=== PATIENT | female | born 1980 | race Caucasian/White ===

== ENCOUNTER → 2016-12-18 | Outpatient (CLI) | payer OTHER ==
--- NOTE | 2016-12-18 11:43 | MR ---
EXAMINATION TYPE: MR lumbar spine wo con DATE OF EXAM: 12/18/2016 9:23 AM COMPARISON: 01/03/2015 HISTORY: Back pain TECHNIQUE: T1 and T2 axial and sagittal images of the lumbar spine are submitted. FINDINGS: There is no abnormal signal seen within the visualized spinal cord or paraspinal soft tissu es. At L1-2 there is no evidence of degenerative disc disease, disc herniation, canal stenosis, or forami nal encroachment. At L2-3 there is no evidence of degenerative disc disease, disc herniation, canal stenosis, or forami nal encroachment. At L3-4 there is no evidence of degenerative disc disease, disc herniation, canal stenosis, or forami nal encroachment. At L4-5 there is loss of disc signal an discogenic marrow changes which are stable. Broad-based centr al, right paracentral and lateral disc bulging is stable with mild right neural foraminal encroachmen t. No nerve root contact. No canal stenosis. Mild facet arthropathy noted. At L5-S1 there is loss of disc signal no evidence of disc herniation or canal stenosis. Stable mild l eft foraminal encroachment. Lateral mild disc bulging stable. IMPRESSION: 1. Stable disc bulging L4-L5 with no focal herniation or canal stenosis. Stable mild right-sided fora anika encroachment. 2. Stable degenerative disc disease and mild left lateral disc bulging L5-S1. Mild left foraminal enc roachment with no nerve root contact.
== END | disposition home or self-care (01) ==
LOC: RADMRIMAIN 08:36
PROVIDERS: ATTEND Family Medicine
DX: M51.17 Intervertebral disc disorders with radiculopathy, lumbosacral region (principal)
CPT/HCPCS: 72148

== ENCOUNTER 2017-01-07 08:00 | Emergency (ER) | payer OTHER ==
[2017-01-07 08:03] VITALS: BP 140/71; PULSE 104; RESP 20; TEMP 99
[2017-01-07] MEDS ORDERED: KETOROLAC 60 MG/2 ML VIAL IM STA (08:34)
--- NOTE | 2017-01-07 08:41 | ED ---
General Adult HPI - General Chief complaint: Neck Pain/Injury Stated complaint: neck and back pain Time Seen by Provider: 01/07/17 08:20 Source: patient, RN notes reviewed Mode of arrival: ambulatory Limitations: no limitations - History of Present Illness Initial comments: Patient a 36-year-old female who presents emergency room today with a chief complaint of increased left-sided neck pain over the last 2 weeks. She does admit that it started after sleeping one night. She states she's been trying some [id number]-[id number] medication with little relief. She states she's tried some topical cream as well. She states she's tried a hot and cold to the area. States worse with rotation to the left. Patient denies any other complaints or symptoms. Denies any specific injury or trauma. Patient denies any recent fever, chills, shortness of breath, chest pain, back pain, abdominal pain, nausea or vomiting, numbness or tingling, dysuria or hematuria, constipation or diarrhea, headaches or visual changes, or any other complaints. - Related Data Home Medications Medication Instructions Recorded Confirmed Omeprazole [PriLOSEC] 40 mg PO AC-BRKFST 07/01/14 01/07/17 Desvenlafaxine Succinate [Pristiq 100 mg PO DAILY 02/03/15 01/07/17 ER] Folic Acid 1 mg PO BID 02/03/15 01/07/17 levETIRAcetam [Keppra] 1,000 mg PO BID 02/28/15 01/07/17 Albuterol Nebulized [Ventolin 2.5 mg INHALATION RT-Q6H PRN 08/08/16 01/07/17 Nebulized] Theophylline Anhydrous 400 mg PO DAILY 08/08/16 01/07/17 [Theophylline] Ibuprofen [Motrin] 400 mg PO Q6H PRN 01/07/17 01/07/17 lamoTRIgine [LaMICtal Xr] 250 mg PO BID 01/07/17 01/07/17 Previous Rx's Medication Instructions Recorded Cyclobenzaprine [Flexeril] 10 mg PO TID #20 tab 01/07/17 Ibuprofen [Motrin] 800 mg PO Q6HR PRN #30 tab 01/07/17 Allergies Allergy/AdvReac Type Severity Reaction Status Date / Time egg Allergy Unknown Verified 01/07/17 08:23 peanut Allergy Anaphylaxis Verified 01/07/17 08:23 influenza virus vaccine, AdvReac Unknown Verified 01/07/17 08:23 specific [Influenza Virus Vacc,Specific] Review of Systems ROS Statement: Those systems with pertinent positive or pertinent negative responses have been documented in the HPI. ROS Other: All systems not noted in ROS Statement are negative. Past Medical History Past Medical History: Asthma, Diabetes Mellitus, GERD/Reflux, Musculoskeletal Disorder Additional Past Medical History / Comment(s): SEIZURES WITH FEVER A CHILD, BACK PAIN, History of Any Multi-Drug Resistant Organisms: None Reported Past Surgical History: Cholecystectomy, Hernia Repair Additional Past Surgical History / Comment(s): Caitlyn [facility] ABDOMINAL HERNIAS REPAIRED Saturday07/02/[address] SHARMA. pT STATES UPPER ABDOMINAL INCISION BRIONES "ALOT" WHEN SHE COUGHS. Past Anesthesia/Blood Transfusion Reactions: No Reported Reaction, Motion Sickness Past Psychological History: Anxiety, Depression Smoking Status: Former smoker Past Alcohol Use History: None Reported Additional Past Alcohol Use History / Comment(s): PT SMOKED FOR 1 YR ONLY AND QUIT 3 YRS AGO Past Drug Use History: None Reported - Past Family History Father Family Medical History: Cancer Additional Family Medical History / Comment(s): THROAT CA Mother Family Medical History: Asthma, COPD Additional Family Medical History / Comment(s): MOTHER IS STILL LIVING. General Exam - General Exam Comments Initial Comments: General: The patient is awake and alert, in no distress, and does not appear acutely ill. Eye: Pupils are equal, round and reactive to light, extra-ocular movements are intact. No nystagmus. There is normal conjunctiva bilaterally. No signs of icterus. Ears, nose, mouth and throat: There are moist mucous membranes and no oral lesions. Neck: The neck is supple. Cardiovascular: There is a regular rate and rhythm. No murmur, rub or gallop is appreciated. Respiratory: Lungs are clear to auscultation, respirations are non-labored, breath sounds are equal. No wheezes, stridor, rales, or rhonchi. Musculoskeletal: Patient shows limited range of motion of the cervical spine. Pain increased with rotation to the left. Tender to palpation over the left sided sternocleidomastoid. Strength 5/5. Sensation intact. Pulses equal bilaterally 2+. Neurological: A&O x 3. CN II-XII intact, There are no obvious motor or sensory deficits. Coordination appears grossly intact. Speech is normal. Skin: Skin is warm and dry and no rashes or lesions are noted. Psychiatric: Cooperative, appropriate mood & affect, normal judgment. Limitations: no limitations Course Vital Signs 01/07/17 08:01 Temperature 99.0 F Pulse Rate 104 H Respiratory 20 Rate Blood Pressure 140/71 O2 Sat by Pulse 98 Oximetry Medical Decision Making - Medical Decision Making Patient did drive herself here to the hospital. Has no ride home. Patient be given Toradol shot here in emergency room discharged home continue on anti- inflammatories and muscle relaxants. Advised the muscle relaxant may make you drowsy. Rest felt family doctor or return here to the emergency room for any other concerns. Disposition Clinical Impression: Torticollis, acute Disposition: HOME SELF-CARE Condition: Good Instructions: Spasmodic Torticollis (ED) Additional Instructions: Please use medication as discussed. Please be aware that muscle relaxant may make you drowsy. Please follow-up with family doctor in the next 2 days of symptoms have not improved. Please return to emergency room if the symptoms increase or worsen or for any other concerns. Prescriptions: Cyclobenzaprine [Flexeril] 10 mg PO TID #20 tab Ibuprofen [Motrin] 800 mg PO Q6HR PRN #30 tab PRN Reason: Pain Time of Disposition: 08:41
== END 2017-01-07 09:17 | disposition home or self-care (01) ==
LOC: EC 08:00
DX: M43.6 Torticollis (principal); K21.9 Gastro-esophageal reflux disease without esophagitis; F41.9 Anxiety disorder, unspecified; F32.9 Major depressive disorder, single episode, unspecified; J45.909 Unspecified asthma, uncomplicated; Z87.891 Personal history of nicotine dependence; Z79.899 Other long term (current) drug therapy; Z91.012 Allergy to eggs; Z91.010 Allergy to peanuts; Z88.7 Allergy status to serum and vaccine
CPT/HCPCS: 99283 ×2; 96372 ×2; J1885

== ENCOUNTER → 2017-02-19 | Outpatient (CLI) | payer OTHER ==
[2017-02-15 15:01] VITALS: BMI 46.7
[2017-02-19 13:57] VITALS: BP 138/91; PULSE 117; RESP 18; TEMP 98
--- NOTE | 2017-02-19 14:08 | P.HPIM ---
History of Present Illness H&P Date: 02/19/17 Chief Complaint: low back pain and right leg numbness/tingling This is a 36-year-old patient referred by Dr. Andrea for chronic pain in low back with radiation to both legs, R > L. Patient is obese. She has been taking medications from primary care physician including [facility] medications with some relief. Patient denies adverse drug effects from medications. Patient also denies new-onset weakness, bowel/bladder incontinence, or any other signs or symptoms of cauda equina syndrome. There are no signs of acute intoxication, and no indications of medication diversion or overuse. Patient notes that pain worsens significantly with standing and walking, and improves with rest, ice, and medication. Patient has used several types of medications for pain, including NSAIDS, OPIOIDS, TRAMADOL. Patient HAS NOT had surgery. Patient HAS NOT had injections previously. Patient HAS NOT had physical therapy recently. In addition to above, 13-point review of systems is also negative for chest pain , shortness of breath, changes in vision, changes in hearing, new onset weakness , abdominal pain, diarrhea, extreme fatigue, malaise, fever, skin changes, homicidal or suicidal ideation, or bowel or bladder incontinence. Vital Signs: Reviewed in EMR Gen: WDWN, AAOx3, NAD HEENT: NCAT, EOMI, hearing grossly normal Pulm: resp unlabored Abd: soft, NT, ND Neck: supple, trachea midline ROM in flexion lumbar spine: reduced ROM in extension lumbar spine: reduced Lumbar paravertebral tenderness: + bilateral, L > R Facet loading: + L > R SI joint tenderness: + Trung's test: neg Straight leg raise: + RLE at 20 degrees Neuro: CN II-XII grossly intact, muscle strength lower extremities PRESERVED Past Medical History Past Medical History: Asthma, Diabetes Mellitus, GERD/Reflux, Musculoskeletal Disorder Additional Past Medical History / Comment(s): SEIZURES WITH FEVER A CHILD, BACK PAIN L4-L5, History of Any Multi-Drug Resistant Organisms: None Reported Past Surgical History: Cholecystectomy, Hernia Repair Additional Past Surgical History / Comment(s): 3 ABDOMINAL HERNIAS REPAIRED pT STATES UPPER ABDOMINAL INCISION BRIONES "ALOT" WHEN SHE COUGHS. Past Anesthesia/Blood Transfusion Reactions: No Reported Reaction, Motion Sickness Past Psychological History: Anxiety, Depression Smoking Status: Former smoker Past Alcohol Use History: None Reported Additional Past Alcohol Use History / Comment(s): PT SMOKED FOR 1 YR ONLY AND QUIT 3 YRS AGO Past Drug Use History: None Reported - Past Family History Father Family Medical History: Cancer Additional Family Medical History / Comment(s): THROAT CA Mother Family Medical History: Asthma, COPD Additional Family Medical History / Comment(s): MOTHER IS STILL LIVING. Medications and Allergies Home Medications Medication Instructions Recorded Confirmed Type Omeprazole [PriLOSEC] 40 mg PO AC-BRKFST 07/01/14 02/19/17 History Desvenlafaxine Succinate [Pristiq 100 mg PO DAILY 02/03/15 02/15/17 History ER] Folic Acid 1 mg PO BID 02/03/15 02/19/17 History levETIRAcetam [Keppra] 1,000 mg PO BID 02/28/15 02/19/17 History Albuterol Nebulized [Ventolin 2.5 mg INHALATION RT-Q6H PRN 08/08/16 02/19/17 History Nebulized] Theophylline Anhydrous 400 mg PO DAILY 08/08/16 02/19/17 History [Theophylline] lamoTRIgine [LaMICtal Xr] 250 mg PO BID 01/07/17 02/19/17 History metFORMIN HCL 1,000 mg PO DAILY 02/15/17 02/19/17 History Allergies Allergy/AdvReac Type Severity Reaction Status Date / Time egg Allergy Unknown Verified 02/19/17 13:44 peanut Allergy Anaphylaxis Verified 02/19/17 13:44 influenza virus vaccine, AdvReac Unknown Verified 02/19/17 13:44 specific [Influenza Virus Vacc,Specific] Results Comments: MRI of the lumbar spine dated 12/18/2016 demonstrates, at the L4-L5 level, a loss of disc signal and a broad-based central, right paracentral, and lateral disc bulging that is stable. There is right neural foraminal encroachment without nerve root contact or spinal canal stenosis. There is mild facet arthropathy noted at this level. At the L5-S1 level, there is loss of disc signal with no evidence of disc herniation or central canal stenosis. There is stable mild left foraminal encroachment with lateral mild disc bulging that is stable. Assessment and Plan (1) Lumbar disc herniation Status: Chronic (2) Lumbosacral spondylosis without myelopathy Status: Chronic (3) Morbid obesity Status: Chronic Plan: 1. Explanation: Opioid and psychological risk scores were reviewed. Diagnoses , prognoses, and multiple treatment options including but not limited to physical therapy, interventional therapies, adjuvant medical therapies, narcotic medication therapies, and surgery were discussed with the patient and all questions were answered to the patient's satisfaction. 2. Opioid agreement: no opioids prescribed today 3. Counseling: The patient was counseled extensively on BODY MASS INDEX, EXERCISE. Specifically, the patient was instructed regarding the importance of weight control and exercise in the context of both chronic pain and overall health. 4. Procedures: LESI series (focus on L4-L5) 5. Consultations: none 6. Investigations: none 7. Medications: none 8. Disposition: f/u for procedure as scheduled PQRS measures: 1-Patient's medications are documented in the chart. 2-Tobacco use is negative 3-Patient has not had a pneumococcal vaccine. 4-Advanced care planning discussed, patient unable to give. 5-Opioid contract NOT signed with the patient. 6-Pain positive, follow-up visit or procedure scheduled 7-Patient's blood pressure measured and documented, and patient will follow up with the primary care due to hypertension. 8-Patient's weight was measured, and body mass index ABOVE the normal limits, and counseling was done. Patient instructed to follow up with PCP. 9-Patient WAS NOT identified as an unhealthy alcohol user. Time with Patient: Greater than 30
== END | disposition home or self-care (01) ==
LOC: PNWHC3 13:31
PROVIDERS: ATTEND Anesthesiology
DX: M51.26 Other intervertebral disc displacement, lumbar region (principal); M47.817 Spondylosis without myelopathy or radiculopathy, lumbosacral region; E66.01 Morbid (severe) obesity due to excess calories; K21.9 Gastro-esophageal reflux disease without esophagitis; J45.909 Unspecified asthma, uncomplicated; E11.9 Type 2 diabetes mellitus without complications; Z91.012 Allergy to eggs; Z91.018 Allergy to other foods; Z87.891 Personal history of nicotine dependence; Z79.891 Long term (current) use of opiate analgesic; Z79.1 Long term (current) use of non-steroidal anti-inflammatories (NSAID)
CPT/HCPCS: 99211

== ENCOUNTER 2017-03-01 06:00 | Day surgery (SDC) | payer OTHER ==
[2017-02-27 14:25] VITALS: BMI 46.7
[~2017-03-01 06:00] MED LIST: LACTATED RINGERS 1,000 ML IV SCH
[2017-03-01 07:27] VITALS: TEMP 96.8
[2017-03-01] MEDS ORDERED: LIDOCAINE 1% 20 ML VIAL (10MG/ML) FOR IV START INTRADERMA ONE (07:35)
[2017-03-01] MEDS ORDERED: fentaNYL (PF) 50 MCG/ML 2 ML AMP ONE (07:38)
[2017-03-01] MEDS ORDERED: DEXAMETHASONE SOD PHOS (MDV) 100 MG/10 ML VIAL ONE (07:38)
[2017-03-01] MEDS ORDERED: IOHEXOL 180 MG/ML 1 ML ML ONE (07:38)
[2017-03-01] MEDS ORDERED: MIDAZOLAM 2 MG/2 ML VIAL ONE (07:38)
--- NOTE | 2017-03-01 08:03 | P.PCN ---
Date of Procedure: 03/01/17 Procedure(s) Performed: PREOPERATIVE DIAGNOSIS: 1- Lumbar herniated Disc Diseases 2-Lumbar spondylosis with Facet arthropathy without myelopathy POSTOPERATIVE DIAGNOSIS: 1-Lumber herniated Disc Diseases 2-Lumbar spondylosis with Facet arthropathy without myelopathy PROCEDURE 1. Lumbar epidural steroid injection under fluoroscopic guidance at the L5-S1 level. (attempted L4-5 not succesfull then I did L5-S1 level ) 2. Lumbar epidurogram. ANESTHESIA: Local with 1% lidocaine 3 ml and IV sedation with Versed 2 mg , and fentanyle 100 Mcg EBL: Minimal PROCEDURE INDICATION: The patient with low back pain and radiculitis symptoms unresponsive to conservative treatment. Fluoroscopy was used to optimize visualization of the needle placement and to maximize safety. PROCEDURE DESCRIPTION / TECHNIQUE: The patient was seen and identified in the preoperative area. Risks, benefits , complications including but not limited to infections ,bleeding ,allergic reaction to the medications ,nerve damage and not complete pain releife , and alternatives were discussed with the patient. The patient agreed to proceed with the procedure and signed the consent. IV was started, and vital signs were stable. Patient was taken to the OR and time out was completed. The patient was placed in the prone position on procedure table and a pillow was placed under the abdomen to reduce lumbar lordosis. The lumbosacral area was prepped and draped in the usual sterile fashion.ere closely monitored during the procedure. Conscious sedation was used during the procedure to decrease patients anxiety. Vital signs was monitered during the entire procedure. Using anterior-posterior fluoroscopy, the L4-5 interlaminar space was identified and the skin over this site was marked and then infiltrated with 1% lidocaine subcutaneously. Subsequently, a 18-gauge 6 inches Tuohy epidural needle was inserted and advanced toward the epidural space then I couldn't identify the epidural space at the L4 5 level , then I changed to L5-S1 level the needle advanced slowely using the ``Loss of resistance technique and guided by AP and lateral fluoroscopy. The correct needle position in the epidural space was verified with the injection of 2 mL of the water soluble contrast dye Omnipaque 180 contrast and observing an excellent epidurogram with the epidural spread of the dye, after negative aspiration for blood and CSF and in the absence of paresthesias. Again after negative aspiration, a 6 ml mixture containing Dexamethasone 20 mg, and 2 ml of preservative free Normal Saline, and 2 ml of preservative free lidocaine 1% solution was injected and a washout of epidurogram was seen. Needle was withdrawn intact, skin was cleansed, and bandages were applied. COMPLICATIONS: None DISPOSITION / PLANS: The patient was placed in a supine position and transferred to the recovery area in a stable condition for observation. There was no evidence of lower extremity motor or sensory deficit after the procedure. Patient was discharged from the recovery room after meeting discharge criteria. Home discharge instructions were given to the patient by the staff. The patient was reexamined prior to discharge. The patient will schedule a follow up in the clinic in 2-4 weeks.
[2017-03-01] MEDS ORDERED: IV FLUID CONTINUATION 1,000 ML IV ONE (08:05)
[2017-03-01 08:06] VITALS: BP 126/65; RESP 18
--- NOTE | 2017-03-01 08:15 | FL ---
EXAMINATION TYPE: FL guided pain mgmt statistic DATE OF EXAM: 03/01/2017 8:00 AM HISTORY: Pain 9sec fluoro time, 1 image scanned.
[2017-03-01 08:19] LABS: Glucose,Whole Blood 172 mg/dL (75-99)
[2017-03-01 08:22] VITALS: PULSE 92
== END 2017-03-01 08:42 | disposition home or self-care (01) ==
LOC: ORPAIN 06:00
PROVIDERS: ATTEND Specialist
DX: M51.26 Other intervertebral disc displacement, lumbar region (principal); M47.816 Spondylosis without myelopathy or radiculopathy, lumbar region; M46.96 Unspecified inflammatory spondylopathy, lumbar region; Z88.7 Allergy status to serum and vaccine; Z91.012 Allergy to eggs; Z91.010 Allergy to peanuts
CPT/HCPCS: 81025; 62323; J2250; Q9965; J3010; J1100

== ENCOUNTER 2017-09-07 10:39 | Emergency (ER) | payer OTHER ==
[2017-09-07 10:56] VITALS: BP 145/78; PULSE 94; RESP 18; TEMP 99.4
[2017-09-07] MEDS ORDERED: CYCLOBENZAPRINE 10 MG TAB PO STA (11:17)
[2017-09-07] MEDS ORDERED: Acetaminophen-Codeine 300-30mg TAB PO STA (11:17)
--- NOTE | 2017-09-07 11:23 | ED ---
Back Pain HPI - General Chief Complaint: Back Pain/Injury Stated Complaint: Back Pain Time Seen by Provider: 09/07/17 10:56 Source: patient, RN notes reviewed Mode of arrival: ambulatory Limitations: no limitations - History of Present Illness Initial Comments: This a 37-year-old female presents emergency Department chief complaint of low back pain, mild upper back pain. Patient states that she receives her workout has been done a lot of AB exercises and states that she strained her back. States that she's had a poor back states that she has had injections in the past. She is on no current pain medications other than [id number] Tylenol Motrin. Denies any bowel bladder incontinence or retention. Denies any saddle anesthesias. Patient states that she has pain was increased with range of motion better at rest. She's tried some heat and ice with some relief. - Related Data Home Medications Medication Instructions Recorded Confirmed Omeprazole [PriLOSEC] 40 mg PO AC-BRKFST 07/01/14 03/28/17 Desvenlafaxine Succinate [Pristiq 100 mg PO DAILY 02/03/15 03/28/17 ER] Folic Acid 1 mg PO BID 02/03/15 03/28/17 levETIRAcetam [Keppra] 1,000 mg PO BID 02/28/15 03/28/17 Albuterol Nebulized [Ventolin 2.5 mg INHALATION RT-Q6H PRN 08/08/16 03/28/17 Nebulized] Theophylline Anhydrous 400 mg PO DAILY 08/08/16 03/28/17 [Theophylline] lamoTRIgine [LaMICtal Xr] 300 mg PO BID 01/07/17 03/28/17 metFORMIN HCL 1,000 mg PO BID 02/15/17 03/28/17 Albuterol Inhaler [Ventolin Hfa 2 puff INHALATION Q4-6H PRN 03/01/17 03/28/17 Inhaler] Previous Rx's Medication Instructions Recorded Acetaminophen-Codeine 300-30mg 1 tab PO Q4H PRN #20 tablet 09/07/17 [Tylenol #3] Cyclobenzaprine [Flexeril] 10 mg PO TID PRN #15 tab 09/07/17 Ibuprofen [Motrin] 600 mg PO Q8HR PRN #30 tab 09/07/17 Allergies Allergy/AdvReac Type Severity Reaction Status Date / Time egg Allergy Unknown Verified 09/07/17 10:56 peanut Allergy Anaphylaxis Verified 09/07/17 10:56 influenza virus vaccine, AdvReac Unknown Verified 09/07/17 10:56 specific [Influenza Virus Vacc,Specific] Review of Systems ROS Statement: Those systems with pertinent positive or pertinent negative responses have been documented in the HPI. ROS Other: All systems not noted in ROS Statement are negative. Past Medical History Past Medical History: Asthma, Diabetes Mellitus, GERD/Reflux, Musculoskeletal Disorder Additional Past Medical History / Comment(s): SEIZURES WITH FEVER A CHILD, BACK PAIN L4-L5, History of Any Multi-Drug Resistant Organisms: None Reported Past Surgical History: Cholecystectomy, Hernia Repair Additional Past Surgical History / Comment(s): 3 ABDOMINAL HERNIAS REPAIRED Past Anesthesia/Blood Transfusion Reactions: No Reported Reaction, Motion Sickness Past Psychological History: Depression Smoking Status: Former smoker Past Alcohol Use History: None Reported Past Drug Use History: None Reported - Past Family History Father Family Medical History: Cancer Additional Family Medical History / Comment(s): THROAT CA Mother Family Medical History: Asthma, COPD Additional Family Medical History / Comment(s): MOTHER IS STILL LIVING. General Exam Limitations: no limitations General appearance: alert, in no apparent distress Head exam: Present: atraumatic, normocephalic, normal inspection Neck exam: Present: normal inspection, full ROM. Absent: tenderness, meningismus, lymphadenopathy Respiratory exam: Present: normal lung sounds bilaterally. Absent: respiratory distress, wheezes, rales, rhonchi, stridor Cardiovascular Exam: Present: regular rate, normal rhythm, normal heart sounds. Absent: systolic murmur, diastolic murmur, rubs, gallop, clicks GI/Abdominal exam: Present: soft, normal bowel sounds. Absent: distended, tenderness, guarding, rebound, rigid Extremities exam: Present: normal inspection, full ROM, normal capillary refill. Absent: tenderness, pedal edema, joint swelling, calf tenderness Back exam: Present: normal inspection, full ROM (Mild discomfort), tenderness ( Mild tenderness right lower thoracic, lumbar), muscle spasm, paraspinal tenderness. Absent: vertebral tenderness Neurological exam: Present: alert, oriented X3, CN II-XII intact, reflexes normal. Absent: motor sensory deficit Skin exam: Present: warm, dry, intact, normal color. Absent: rash Course Vital Signs 09/07/17 10:53 Temperature 99.4 F Pulse Rate 94 Respiratory 18 Rate Blood Pressure 145/78 O2 Sat by Pulse 99 Oximetry Medical Decision Making - Medical Decision Making 37-year-old female present emergency from for low back, mid back pain. Patient has reproducible back pain she has history of chronic back pain. Patient's pain is better at rest worse with movement. Patient treated for a strain of her back. She'll be given Flexeril, according advised to continue ibuprofen return parameters were discussed. Disposition Clinical Impression: Acute exacerbation of chronic low back pain Disposition: HOME SELF-CARE Condition: Stable Instructions: Acute Low Back Pain (ED) Additional Instructions: Please return to the Emergency Department if symptoms worsen or any other concerns. Prescriptions: Acetaminophen-Codeine 300-30mg [Tylenol #3] 1 tab PO Q4H PRN #20 tablet PRN Reason: pain Cyclobenzaprine [Flexeril] 10 mg PO TID PRN #15 tab PRN Reason: Muscle Spasm Ibuprofen [Motrin] 600 mg PO Q8HR PRN #30 tab PRN Reason: Pain Referrals: Aissatou Hillman MD [Primary Care Provider] - 1-2 days Time of Disposition: 11:23
== END 2017-09-07 11:42 | disposition home or self-care (01) ==
LOC: EC 10:39
DX: G89.29 Other chronic pain (principal); M62.830 Muscle spasm of back; J45.909 Unspecified asthma, uncomplicated; E11.9 Type 2 diabetes mellitus without complications; K21.9 Gastro-esophageal reflux disease without esophagitis; F32.9 Major depressive disorder, single episode, unspecified; Z87.891 Personal history of nicotine dependence; Z79.84 Long term (current) use of oral hypoglycemic drugs; Z79.899 Other long term (current) drug therapy; Z88.7 Allergy status to serum and vaccine; Z91.010 Allergy to peanuts; Z91.012 Allergy to eggs; Z86.69 Personal history of other diseases of the nervous system and sense organs
CPT/HCPCS: 99283

== ENCOUNTER 2017-09-12 17:12 | Observation (INO) | payer OTHER ==
[2017-09-12] MEDS ORDERED: IPRATROPIUM-ALBUTEROL 3 ML NEB INHALATION STA ×2 (17:24→18:19)
[2017-09-12] MEDS ORDERED: SODIUM CHLORIDE 0.9% 1,000 ML IV ONE (17:24)
[2017-09-12] MEDS ORDERED: KETOROLAC 30 MG/ML 1 ML VIAL IVP STA (17:24)
--- NOTE | 2017-09-12 17:28 | ED ---
SOB HPI - General Chief Complaint: Shortness of Breath Stated Complaint: JACINTO Source: patient Mode of arrival: wheelchair Limitations: no limitations - History of Present Illness Initial Comments: Patient is a 37-year-old female present for evaluation for 2 day history of shortness of breath and cough. Past medical history as below. Patient states that her symptoms started roughly 2 days ago. She has an established history of asthma. She went to [facility] yesterday and prescribed her dual nebs and steroids which she's been compliant with. However, today she states that she acutely worsened. She describes having subjective fevers with sweating. Her shortness of breath worsened. She was doing breathing treatments every 4 hours with no improvement. Multiple sick contacts with her fianc and daughter. Both of which had URI symptoms. No history of DVTs or pulmonary embolisms. No recent long distance travel. She currently denies headaches, chest pain, nausea , vomiting, diarrhea, pain or burning with urination. - Related Data Home Medications Medication Instructions Recorded Confirmed Omeprazole [PriLOSEC] 40 mg PO AC-BRKFST 07/01/14 09/12/17 Folic Acid 1 mg PO BID 02/03/15 09/12/17 levETIRAcetam [Keppra] 1,000 mg PO BID 02/28/15 09/12/17 Albuterol Nebulized [Ventolin 2.5 mg INHALATION RT-Q6H PRN 08/08/16 09/12/17 Nebulized] metFORMIN HCL 1,000 mg PO BID 02/15/17 09/12/17 Albuterol Inhaler [Ventolin Hfa 2 puff INHALATION Q4-6H PRN 03/01/17 09/12/17 Inhaler] Desvenlafaxine Succinate [Pristiq 50 mg PO DAILY 09/12/17 09/12/17 ER] lamoTRIgine [LaMICtal] 75 mg PO BID 09/12/17 09/12/17 lamoTRIgine [LaMICtal] 200 mg PO BID 09/12/17 09/12/17 predniSONE See Taper PO DAILY 09/12/17 09/12/17 Allergies Allergy/AdvReac Type Severity Reaction Status Date / Time egg Allergy Unknown Verified 09/12/17 18:03 peanut Allergy Anaphylaxis Verified 09/12/17 18:03 influenza virus vaccine, AdvReac Unknown Verified 09/12/17 18:03 specific [Influenza Virus Vacc,Specific] Review of Systems ROS Statement: Those systems with pertinent positive or pertinent negative responses have been documented in the HPI. ROS Other: All systems not noted in ROS Statement are negative. Past Medical History Past Medical History: Asthma, Diabetes Mellitus, GERD/Reflux, Musculoskeletal Disorder, Seizure Disorder Additional Past Medical History / Comment(s): SEIZURES WITH FEVER A CHILD, BACK PAIN L4-L5, History of Any Multi-Drug Resistant Organisms: None Reported Past Surgical History: Cholecystectomy, Hernia Repair Additional Past Surgical History / Comment(s): 3 ABDOMINAL HERNIAS REPAIRED Past Anesthesia/Blood Transfusion Reactions: No Reported Reaction, Motion Sickness Past Psychological History: Depression Smoking Status: Former smoker Past Alcohol Use History: None Reported Past Drug Use History: None Reported - Past Family History Father Family Medical History: Cancer Additional Family Medical History / Comment(s): THROAT CA Mother Family Medical History: Asthma, COPD Additional Family Medical History / Comment(s): MOTHER IS STILL LIVING. General Exam Limitations: no limitations General appearance: alert, in no apparent distress, other (Nontoxic appearing) Head exam: Present: atraumatic, normocephalic, normal inspection Eye exam: Present: normal appearance, PERRL, EOMI. Absent: scleral icterus, conjunctival injection, periorbital swelling ENT exam: Present: normal exam, mucous membranes moist, other (Moist mucous membranes. Posterior oropharynx is clear without any tonsillar swelling.) Neck exam: Present: normal inspection. Absent: tenderness, meningismus, lymphadenopathy Respiratory exam: Present: respiratory distress, wheezes, other (Diffuse expiratory wheeze bilaterally. Conversational dyspnea. No tachypnea. No hypoxia.). Absent: rales, rhonchi, stridor Cardiovascular Exam: Present: regular rate, normal rhythm, normal heart sounds. Absent: systolic murmur, diastolic murmur, rubs, gallop, clicks GI/Abdominal exam: Present: soft, normal bowel sounds. Absent: distended, tenderness, guarding, rebound, rigid Extremities exam: Present: normal inspection, full ROM, normal capillary refill. Absent: tenderness, pedal edema, joint swelling, calf tenderness Back exam: Present: normal inspection Neurological exam: Present: alert, oriented X3, CN II-XII intact Psychiatric exam: Present: normal affect, normal mood Skin exam: Present: warm, dry, intact, normal color. Absent: rash Course Vital Signs 09/12/17 09/12/17 09/12/17 17:15 17:35 17:46 Temperature 98.2 F Pulse Rate 114 H 108 H 104 H Respiratory 16 Rate Blood Pressure 135/73 O2 Sat by Pulse 97 Oximetry 09/12/17 09/12/17 19:07 19:27 Temperature Pulse Rate 104 H 100 Respiratory Rate Blood Pressure O2 Sat by Pulse Oximetry Medical Decision Making - Medical Decision Making Patient is a 37-year-old female presents for evaluation for shortness of breath , cough, wheezing, subjective fevers. History of asthma. Exam is consistent with acute asthma exacerbation/bronchitis. Patient very upset when she was at [facility] because she did not get any blood work or chest x-ray. We'll order two- view chest x-ray with basic labs. NS bolus. Duo nebs. Toradol (pain from coughing). Took 60 mg of prednisone this AM. 1809: Review chest x-ray. Questionable of the left lower lobe. Awaiting laboratory studies. 1814: Reviewed CBC; Leukocytosis at 19K. 2/4 SIRS criteria. Ordered lactic acid and blood/urine cultures. Source of infection: LLL pneumonia. 2 additional liters to complete a 30 mL per KG fluid bolus. Awaiting rest of labs. 1929: Re-evaluated the pt after 30 cc/kg bolus. VSS. Distal pulses in UE/LE intact. Cap refill <3 seconds. Pg to admitting physician for admission for sepsis with source being LLL PNA. Spoke with Dr. Ram who agrees to admission for severe sepsis with PNA. - Lab Data Result diagrams: 09/12/17 17:50 09/12/17 17:40 Lab Results 09/12/17 09/12/17 09/12/17 Range/Units 17:30 17:40 17:40 WBC (3.8-10.6) k/uL RBC (3.80-5.40) m/uL Hgb (11.4-16.0) gm/dL Hct (34.0-46.0) % MCV (80.0-100.0) fL MCH (25.0-35.0) pg MCHC (31.0-37.0) g/dL RDW (11.5-15.5) % Plt Count (150-450) k/uL Neutrophils % % Lymphocytes % % Monocytes % % Eosinophils % % Basophils % % Neutrophils # (1.3-7.7) k/uL Lymphocytes # (1.0-4.8) k/uL Monocytes # (0-1.0) k/uL Eosinophils # (0-0.7) k/uL Basophils # (0-0.2) k/uL Hypochromasia Microcytosis Sodium 137 (137-145) mmol/L Potassium 5.0 (3.5-5.1) mmol/L Chloride 108 H (98-107) mmol/L Carbon Dioxide 17 L (22-30) mmol/L Anion Gap 12 mmol/L BUN 17 (7-17) mg/dL Creatinine 0.60 (0.52-1.04) mg/dL Est GFR (MDRD) Af Amer >60 (>60 ml/min/1.73 sqM) Est GFR (MDRD) Non-Af >60 (>60 ml/min/1.73 sqM) Glucose 296 H (74-99) mg/dL Plasma Lactic Acid Isaiah 2.6 H* (0.7-2.0) mmol/L Calcium 9.1 (8.4-10.2) mg/dL Magnesium 1.9 (1.6-2.3) mg/dL Total Bilirubin 0.3 (0.2-1.3) mg/dL AST 54 H (14-36) U/L ALT 270 H (9-52) U/L Alkaline Phosphatase 110 (38-126) U/L Total Protein 6.1 L (6.3-8.2) g/dL Albumin 3.6 (3.5-5.0) g/dL Influenza Type A RNA Not Detected (Not Detectd) Influenza Type B (PCR) Not Detected (Not Detectd) 09/12/17 Range/Units 17:50 WBC 19.8 H (3.8-10.6) k/uL RBC 5.08 (3.80-5.40) m/uL Hgb 11.4 (11.4-16.0) gm/dL Hct 38.0 (34.0-46.0) % MCV 74.9 L (80.0-100.0) fL MCH 22.5 L (25.0-35.0) pg MCHC 30.1 L (31.0-37.0) g/dL RDW 15.0 (11.5-15.5) % Plt Count 440 (150-450) k/uL Neutrophils % 88 % Lymphocytes % 5 % Monocytes % 5 % Eosinophils % 1 % Basophils % 0 % Neutrophils # 17.4 H (1.3-7.7) k/uL Lymphocytes # 1.0 (1.0-4.8) k/uL Monocytes # 1.1 H (0-1.0) k/uL Eosinophils # 0.1 (0-0.7) k/uL Basophils # 0.0 (0-0.2) k/uL Hypochromasia Marked Microcytosis Slight Sodium (137-145) mmol/L Potassium (3.5-5.1) mmol/L Chloride (98-107) mmol/L Carbon Dioxide (22-30) mmol/L Anion Gap mmol/L BUN (7-17) mg/dL Creatinine (0.52-1.04) mg/dL Est GFR (MDRD) Af Amer (>60 ml/min/1.73 sqM) Est GFR (MDRD) Non-Af (>60 ml/min/1.73 sqM) Glucose (74-99) mg/dL Plasma Lactic Acid Isaiah (0.7-2.0) mmol/L Calcium (8.4-10.2) mg/dL Magnesium (1.6-2.3) mg/dL Total Bilirubin (0.2-1.3) mg/dL AST (14-36) U/L ALT (9-52) U/L Alkaline Phosphatase (38-126) U/L Total Protein (6.3-8.2) g/dL Albumin (3.5-5.0) g/dL Influenza Type A RNA (Not Detectd) Influenza Type B (PCR) (Not Detectd) Disposition Clinical Impression: Sepsis, CAP (community acquired pneumonia), Asthma exacerbation, Lactic acidosis, Transaminitis, Diabetic acidosis, type II Disposition: ADMITTED IP TO THIS [facility] Condition: Good Referrals: Aissatou Hillman MD [Primary Care Provider] - 1-2 days Decision to Admit Reason: Admit from EC
--- NOTE | 2017-09-12 18:04 | XR ---
EXAMINATION TYPE: XR chest 2V DATE OF EXAM: 09/12/2017 COMPARISON: 05/14/2014 HISTORY: Cough and short of breath TECHNIQUE: Frontal and lateral views of the chest are obtained. FINDINGS: Heart and mediastinum are normal. There is some mild linear infiltrate in the left lower l obe behind the heart. The other lung bright are clear. There is no pleural effusion. Bony thorax is i ntact. IMPRESSION: New mild linear infiltrate or atelectasis in the left lower lobe compared to last exam.
[2017-09-12 18:12] LABS: Basophils % (A) 0 %; CH 22.8; CHCM 30.5; Eosinophils # (A) 0.1 k/uL (0-0.7); Eosinophils % (A) 1 %; HDW 2.92; HGB 11.4 gm/dL (11.4-16.0); Hypochromasia Marked; Luc # (Auto) 0.16; Luc % (Auto) 1; Lymphocytes % (A) 5 %; MCH 22.5 pg (25.0-35.0); MCHC 30.1 g/dL (31.0-37.0); MCV 74.9 fL (80.0-100.0); Mean Platelet Volume 6.6; Microcytosis Slight; Monocytes # (A) 1.1 k/uL (0-1.0); Monocytes % (A) 5 %; Neutrophils # (A) 17.4 k/uL (1.3-7.7); Neutrophils % (A) 88 %; RBC 5.08 m/uL (3.80-5.40); WBC 19.8 k/uL (3.8-10.6)
[2017-09-12] MEDS ORDERED: SODIUM CHLORIDE 0.9% 2,000 ML IV ONE (18:19)
[2017-09-12] MEDS ORDERED: AZITHROMYCIN 500 MG in SODIUM CHLORIDE 0.9% 250 ML IVPB STA (18:22)
[2017-09-12] MEDS ORDERED: cefTRIAXone IN SWFI 1,000 MG/10 ML SYRINGE IVP STA (18:22)
[2017-09-12 18:33] LABS: ALT 270 U/L (9-52); AST 54 U/L (14-36); Alkaline Phosphatase 110 U/L (38-126); Anion Gap 12 mmol/L; Blood Urea Nitrogen 17 mg/dL (7-17); Calcium 9.1 mg/dL (8.4-10.2); Carbon Dioxide 17 mmol/L (22-30); Chloride 108 mmol/L (98-107); Glucose 296 mg/dL (74-99); Magnesium 1.9 mg/dL (1.6-2.3); Non-African American GFR(MDRD) >60 (>60 ml/min/1.73 sqM); Sodium 137 mmol/L (137-145); Total Bilirubin 0.3 mg/dL (0.2-1.3); Total Protein 6.1 g/dL (6.3-8.2)
[2017-09-12] MEDS: SODIUM CHLORIDE 0.9% 1,000 ML IV SCH (19:30)
[2017-09-12] MEDS ORDERED: NALOXONE 0.4 MG/ML 1 ML VIAL IV PRN (19:31)
[2017-09-12 20:00] LABS: Appearance,Urine Clear (Clear); Bilirubin,Urine Negative (Negative); Glucose,Urine (UA) 4+ (Negative); Ketones,Urine 1+ (Negative); Leukocyte Esterase,Urine Negative (Negative); Nitrite,Urine Negative (Negative); PH, Urine 5.5 (5.0-8.0); Protein,Urine Trace (Negative); Specific Gravity,Urine 1.035 (1.001-1.035); UA Billing (MACRO vs. MICRO) CHEM; Urobilinogen,Urine <2.0 mg/dL (<2.0)
[2017-09-12 20:32] VITALS: BMI 44.4
[2017-09-12] MEDS ORDERED: LEVOFLOXACIN 500MG-D5W PMX 500 MG in DEXTROSE/WATER 1 100ML.BAG IVPB SCH (21:00)
[2017-09-12] MEDS: lamoTRIgine 25 MG TAB PO SCH (22:38)
[2017-09-12] MEDS: lamoTRIgine 100 MG TAB PO SCH (22:38)
[2017-09-12] MEDS: levETIRAcetam 500 MG TAB PO SCH (22:38)
[2017-09-13] MEDS: ACETAMINOPHEN TAB 325 MG TAB PO PRN (03:04)
[2017-09-13] MEDS: ALBUTEROL NEBULIZED 2.5 MG/3 ML INHALATION SCH ×5 (05:10→20:55)
[2017-09-13] MEDS: SODIUM CHLORIDE 0.9% 1,000 ML IV SCH ×2 (06:34→15:26)
[2017-09-13] MEDS: lamoTRIgine 100 MG TAB PO SCH ×2 (07:37→21:32)
[2017-09-13] MEDS: levETIRAcetam 500 MG TAB PO SCH ×2 (07:37→21:32)
[2017-09-13] MEDS: PANTOPRAZOLE 40 MG TABLET PO SCH (07:38)
[2017-09-13] MEDS: metFORMIN 500 MG TAB PO SCH ×2 (07:38→18:00)
[2017-09-13] MEDS: DESVENLAFAXINE SUCCINATE 50 MG TAB.ER.24H PO SCH (07:38)
[2017-09-13] MEDS: lamoTRIgine 25 MG TAB PO SCH ×2 (07:38→21:32)
[2017-09-13 07:58] LABS: Glucose,Whole Blood 218 mg/dL (75-99)
[2017-09-13] MEDS: KETOROLAC 30 MG/ML 1 ML VIAL IM PRN ×2 (08:34→15:31)
[2017-09-13] MEDS: INSULIN ASPART 100 UNIT/ML 1 ML 10 ML VIAL SQ SCH ×4 (08:35→21:25)
[2017-09-13] MEDS ORDERED: AZITHROMYCIN 500 MG in SODIUM CHLORIDE 0.9% 250 ML IVPB SCH (09:00)
[2017-09-13] MEDS ORDERED: ONDANSETRON 4 MG/2 ML VIAL IVP PRN (10:29)
[2017-09-13] MEDS: guaiFENesin SYRUP 100MG/5ML 200 MG/10 ML CUP PO PRN ×2 (10:53→15:31)
[2017-09-13 11:42] LABS: Glucose,Whole Blood 127 mg/dL (75-99)
[2017-09-13] MEDS ORDERED: INSULIN ASPART 100 UNIT/ML 1 ML 10 ML VIAL SQ SCH (12:30)
--- NOTE | 2017-09-13 14:07 | HP ---
HISTORY AND PHYSICAL CHIEF COMPLAINT: Shortness of breath, cough, congestion. HISTORY OF PRESENT ILLNESS: This is the first known admission for this 37-year-old, white female, who presented to the emergency room with shortness of breath and was diagnosed as having pneumonia. She has had no chest pain, hemoptysis, history of pulmonary disease or heart disease, etc. She does have a seizure disorder. REVIEW OF SYSTEMS: She has had no pleuritic pain, nausea, vomiting, sepsis, etc. Past medical history, family history and personal social histories demonstrate that she had a cholecystectomy and 2 hernia repairs. She is not allergic to any medication. She does have diabetes. She takes Lomotil, Keppra, metformin, Prilosec and Pristiq. She does not smoke. PHYSICAL EXAMINATION: Her blood pressure is 141/92 with a pulse of 87, respirations of 35 and she is afebrile. In general, she appeared to be well developed, well nourished, and slightly overweight. Head, ears, eyes, nose, mouth, and throat were normal. Neck veins not distended. Thyroid was not enlarged. Chest demonstrates poor breath sounds at the bases. Cardiac exam is normal. The abdomen is soft, nontender. EXTREMITIES: Normal. IMPRESSION: 1. Bronchopneumonia. 2. Seizure disorder. 3. Type 2 non-insulin dependent diabetes mellitus. PLAN: 1. Bed rest. 2. IV fluids. 3. Nasal O2. 4. Updrafts. MMILANAL / KIRTN: [id number] /
[2017-09-13 17:35] LABS: Glucose,Whole Blood 134 mg/dL (75-99)
[2017-09-13] MEDS ORDERED: traZODone HCL 50 MG TAB PO PRN (19:20)
[2017-09-13 20:26] LABS: Glucose,Whole Blood 120 mg/dL (75-99)
[2017-09-13] MEDS ORDERED: LEVOFLOXACIN 500MG-D5W PMX 500 MG in DEXTROSE/WATER 1 100ML.BAG IVPB SCH (21:00)
[2017-09-14] MEDS: guaiFENesin SYRUP 100MG/5ML 200 MG/10 ML CUP PO PRN ×2 (01:36→20:25)
[2017-09-14] MEDS: SODIUM CHLORIDE 0.9% 1,000 ML IV SCH ×2 (01:39→16:51)
[2017-09-14] MEDS: ALBUTEROL NEBULIZED 2.5 MG/3 ML INHALATION PRN (01:57)
[2017-09-14] MEDS: KETOROLAC 30 MG/ML 1 ML VIAL IM PRN (05:50)
[2017-09-14 07:39] LABS: Glucose,Whole Blood 130 mg/dL (75-99)
[2017-09-14] MEDS: INSULIN ASPART 100 UNIT/ML 1 ML 10 ML VIAL SQ SCH ×4 (08:39→20:21)
[2017-09-14] MEDS: metFORMIN 500 MG TAB PO SCH ×2 (08:50→17:28)
[2017-09-14] MEDS: PANTOPRAZOLE 40 MG TABLET PO SCH (08:50)
[2017-09-14] MEDS: AZITHROMYCIN 500 MG TAB PO SCH (08:50)
[2017-09-14] MEDS: lamoTRIgine 25 MG TAB PO SCH ×2 (08:51→20:27)
[2017-09-14] MEDS: DESVENLAFAXINE SUCCINATE 50 MG TAB.ER.24H PO SCH (08:51)
[2017-09-14] MEDS: levETIRAcetam 500 MG TAB PO SCH ×2 (08:51→20:27)
[2017-09-14] MEDS: lamoTRIgine 100 MG TAB PO SCH ×2 (08:51→20:27)
[2017-09-14] MEDS: ACETAMINOPHEN TAB 325 MG TAB PO PRN (09:07)
[2017-09-14] MEDS: ALBUTEROL NEBULIZED 2.5 MG/3 ML INHALATION SCH ×4 (09:14→18:57)
[2017-09-14 11:35] LABS: Glucose,Whole Blood 134 mg/dL (75-99)
[2017-09-14] MEDS: KETOROLAC 30 MG/ML 1 ML VIAL IVP PRN ×2 (13:31→20:25)
[2017-09-14 17:12] LABS: Glucose,Whole Blood 106 mg/dL (75-99)
--- NOTE | 2017-09-14 19:41 | PN ---
PROGRESS NOTE CHIEF COMPLAINT: Pneumonitis, diabetes, seizure disorder, and elevated white count. HISTORY OF PRESENT ILLNESS: This lady is a doing little bit better. Chest is clearing and she is much less uncomfortable. She has experienced some swelling of the left hand with some discomfort which might have been related to an IV. PHYSICAL EXAM: Her chest is fairly clear. Cardiac exam is normal. Abdomen is soft, nontender. IMPRESSION: 1. Pneumonitis. 2. Sepsis. 3. Headaches. 4. Edema of the left hand. PLAN: John wrapped the left hand to control edema. Her wedding ring is quite tight and could not be removed and the ring finger will have to be watched. She may be able to go home tomorrow if she has no further problems. MMODL / IJN: [id number] /
[2017-09-14 20:02] LABS: Glucose,Whole Blood 123 mg/dL (75-99)
[2017-09-14] MEDS ORDERED: LEVOFLOXACIN 500 MG TAB PO SCH (21:00)
[2017-09-15] MEDS: SODIUM CHLORIDE 0.9% 1,000 ML IV SCH ×2 (00:46→09:54)
[2017-09-15] MEDS: ALBUTEROL NEBULIZED 2.5 MG/3 ML INHALATION PRN (04:14)
[2017-09-15] MEDS: KETOROLAC 30 MG/ML 1 ML VIAL IVP PRN (04:55)
[2017-09-15] MEDS: guaiFENesin SYRUP 100MG/5ML 200 MG/10 ML CUP PO PRN ×2 (04:55→09:25)
[2017-09-15 07:30] LABS: Glucose,Whole Blood 128 mg/dL (75-99)
[2017-09-15 07:39] VITALS: RESP 18
[2017-09-15] MEDS: DESVENLAFAXINE SUCCINATE 50 MG TAB.ER.24H PO SCH (07:43)
[2017-09-15] MEDS: PANTOPRAZOLE 40 MG TABLET PO SCH (07:43)
[2017-09-15] MEDS: INSULIN ASPART 100 UNIT/ML 1 ML 10 ML VIAL SQ SCH ×2 (07:43→12:20)
[2017-09-15] MEDS: AZITHROMYCIN 500 MG TAB PO SCH (07:43)
[2017-09-15] MEDS: metFORMIN 500 MG TAB PO SCH (07:43)
[2017-09-15] MEDS: lamoTRIgine 25 MG TAB PO SCH (07:43)
[2017-09-15] MEDS: ACETAMINOPHEN TAB 325 MG TAB PO PRN (07:44)
[2017-09-15] MEDS: lamoTRIgine 100 MG TAB PO SCH (07:44)
[2017-09-15] MEDS: levETIRAcetam 500 MG TAB PO SCH (07:44)
[2017-09-15] MEDS: ALBUTEROL NEBULIZED 2.5 MG/3 ML INHALATION SCH ×3 (08:46→16:00)
[2017-09-15 11:45] LABS: Glucose,Whole Blood 134 mg/dL (75-99)
[2017-09-15 15:41] VITALS: BP 158/88; TEMP 99.6
[2017-09-15 16:16] VITALS: PULSE 96
--- NOTE | 2017-09-16 08:34 | DS ---
DISCHARGE SUMMARY CHIEF COMPLAINT: Pneumonitis, sepsis and elevated liver function studies. HISTORY OF PRESENT ILLNESS AND PHYSICAL EXAM: Details of this lady's history and physical can be found in the initial workup. LABORATORY STUDIES: While she was in a hospital she had laboratory studies, details which can be found in the laboratory section of her chart. COURSE IN HOSPITAL: After admission she was placed on bedrest and started on intravenous fluids and updrafts. Her cough, bronchitis and pneumonitis slowly subsided and she was doing well. I felt she could go home on the . She will go home on her usual activity, diet and medication. She will be given discharge prescriptions for azithromycin and Levaquin for 7 more days. She will follow up in the office or with her own physician. FINAL DIAGNOSES: 1. Pneumonitis. 2. Headache. 3. Lactic acidosis. OPERATIONS: None. CONSULTATION: None She is improved. MMOLGA / KIRTN: [id number] /
--- NOTE | 2017-09-17 15:24 | CDI ---
In responding to this query, please exercise your independent professional judgment. The [facility] Coding Staff and Clinical Documentation Specialists appreciate your assistance in clarifying documentation, maintaining compliance with coding guidelines, accurately documenting patients condition and capturing severity of illness. The fact that a question is asked does not imply that any particular answer is desired or expected. Communication forms are a method of clarifying documentation and are not made part of the Legal Health Record. Thank you in advance for your clarification. Last Revision, August 2015 Vipul Olivas [address] [place] [address] Documentation Clarification Form Date: 09/17/2017 3:08:00 PM From: Faith Starks Phone: Admit Date: 09/12/2017 7:32:00 PM Patient Name: Becky Trinh Visit Number: [id number] Discharge Date: Dr. Brock Ram Sepsis is documented in the ED note, H&P and progress note but lactic acidosis is documented in the discharge summary. Patient history/risk factors: Patient is admitted with pneumonia. Lab findings: WBC 19.8, lactic acid 2.6 Vital Signs: T. 99.9 on day of admit, P 114 on admit, R 26 on day of admit, BP 135/73 on admit Treatment: IV Zithromax, IV Rocephin, IV Levofloxacin In your professional opinion, can you please clarify if Sepsis was Ruled In or Ruled Out? Other Unable to determine Please document in your discharge summary in order to capture severity of illness and risk of mortality. Include clinical findings that support your diagnosis. FYI: Press F11 to launch patient chart. If you have a question about this query, please contact [employer] at [phone]. [facility]
--- NOTE | 2017-09-20 16:56 | CDI ---
In responding to this query, please exercise your independent professional judgment. The [facility] Coding Staff and Clinical Documentation Specialists appreciate your assistance in clarifying documentation, maintaining compliance with coding guidelines, accurately documenting patients condition and capturing severity of illness. The fact that a question is asked does not imply that any particular answer is desired or expected. Communication forms are a method of clarifying documentation and are not made part of the Legal Health Record. Thank you in advance for your clarification. Last Revision, August 2015 Vipul [address]ivas [address] [facility] [place] [address] Documentation Clarification Form Date: 09/17/2017 3:08:00 PM From: Faith Starks Phone: Admit Date: 09/12/2017 7:32:00 PM Patient Name: Becky Trinh Visit Number: [id number] Discharge Date: Dr. Brock Ram Thank you for signing your query. Please document a response before signing this query. Sepsis is documented in the ED note, H&P and progress note but lactic acidosis is documented in the discharge summary. Patient history/risk factors: Patient is admitted with pneumonia. Lab findings: WBC 19.8, lactic acid 2.6 Vital Signs: T. 99.9 on day of admit, P 114 on admit, R 26 on day of admit, BP 135/73 on admit Treatment: IV Zithromax, IV Rocephin, IV Levofloxacin In your professional opinion, can you please clarify if Sepsis was Ruled In or Ruled Out? Other Unable to determine Please document in your progress notes and discharge summary in order to capture severity of illness and risk of mortality. Include clinical findings that support your diagnosis. FYI: Press F11 to launch patient chart. MTDD
--- NOTE | 2017-10-01 13:16 | MISC ---
MISCELLANOUS REPORT Answer to query. The query was about sepsis and the answer is sepsis was ruled out. MMODL / IJN: [id number] /
--- NOTE | 2017-10-03 14:35 | MISC ---
MISCELLANOUS REPORT QUERY: Causes of sepsis? The answer is unable to determine. MMODL / IJN: [id number] /
== END 2017-09-15 16:22 | disposition home or self-care (01) ==
LOC: EC 17:12 → 5MS5E 19:32 → INTOOBSV 19:32 → 5MS5E 19:56
PROVIDERS: ADMIT Family Medicine; ATTEND Family Medicine
DX: J18.0 Bronchopneumonia, unspecified organism (principal); K21.9 Gastro-esophageal reflux disease without esophagitis; J45.909 Unspecified asthma, uncomplicated; E11.9 Type 2 diabetes mellitus without complications; G40.909 Epilepsy, unspecified, not intractable, without status epilepticus; R60.9 Edema, unspecified; R94.5 Abnormal results of liver function studies; Z79.899 Other long term (current) drug therapy; Z79.84 Long term (current) use of oral hypoglycemic drugs; Z87.891 Personal history of nicotine dependence; Z88.7 Allergy status to serum and vaccine; Z91.012 Allergy to eggs; Z91.010 Allergy to peanuts; E87.2 Acidosis
CPT/HCPCS: 96376 ×2; 96361 ×3; 96366 ×2; 96367; 96372 ×2; 96375 ×2; 96365; 99285; 36415; 94640 ×8; 80053; 83605; 83735; 85025; 81003; 87040; 87086; 87077; 87186; 87502; 83036; 71020; G0378 ×4; J2405; J1956; J0456 ×2; J0696; J1885 ×4; 96360

== ENCOUNTER 2017-10-23 11:10 | Emergency (ER) | payer OTHER ==
--- NOTE | 2017-10-23 11:44 | ED ---
General Adult HPI - General Chief complaint: Back Pain/Injury Stated complaint: Back pain Time Seen by Provider: 10/23/17 11:35 Source: patient, RN notes reviewed Mode of arrival: ambulatory Limitations: no limitations - History of Present Illness Initial comments: Patient 37-year-old female who presents emergency room today with chief complaint of increased upper back pain. She does admit to a history of chronic low back pain over the last several years after falls. Patient states that she has been experiencing some upper back pain over the last 2 days. States that she had a friend try to crack her back and she had increased pain after this. She states she feels the top of the thoracic spine. Patient states feels that shoots down. Patient does admit that she does have some radiation into the right hip area which is not new for her. She denies bowel or bladder incontinence retention. Denies any saddle anesthesia. Patient denies any other complaints or symptoms. Patient denies any recent fever, chills, shortness of breath, chest pain, abdominal pain, nausea or vomiting, dysuria or hematuria, constipation or diarrhea, headaches or visual changes, or any other complaints. - Related Data Home Medications Medication Instructions Recorded Confirmed Folic Acid 1 mg PO BID 02/03/15 10/23/17 levETIRAcetam [Keppra] 1,000 mg PO BID 02/28/15 10/23/17 metFORMIN HCL 1,000 mg PO BID 02/15/17 10/23/17 Desvenlafaxine Succinate [Pristiq 50 mg PO DAILY 09/12/17 10/23/17 ER] lamoTRIgine [LaMICtal] 75 mg PO BID 09/12/17 10/23/17 lamoTRIgine [LaMICtal] 200 mg PO BID 09/12/17 10/23/17 Previous Rx's Medication Instructions Recorded Cyclobenzaprine [Flexeril] 10 mg PO TID #20 tab 10/23/17 Ibuprofen [Motrin] 800 mg PO Q6HR #30 tab 10/23/17 Lidocaine [Lidoderm 5% Patch] 1 patch TRANSDERM DAILY #7 patch 10/23/17 Allergies Allergy/AdvReac Type Severity Reaction Status Date / Time egg yolk Allergy Anaphylaxis Verified 10/23/17 11:32 peanut Allergy Anaphylaxis Verified 10/23/17 11:32 influenza virus vaccine, AdvReac Unknown Verified 10/23/17 11:32 specific [Influenza Virus Vacc,Specific] Review of Systems ROS Statement: Those systems with pertinent positive or pertinent negative responses have been documented in the HPI. ROS Other: All systems not noted in ROS Statement are negative. Past Medical History Past Medical History: Asthma, Diabetes Mellitus, GERD/Reflux, Musculoskeletal Disorder, Seizure Disorder Additional Past Medical History / Comment(s): SEIZURES WITH FEVER A CHILD, BACK PAIN L4-L5, History of Any Multi-Drug Resistant Organisms: None Reported Past Surgical History: Cholecystectomy, Hernia Repair Additional Past Surgical History / Comment(s): 3 ABDOMINAL HERNIAS REPAIRED Past Anesthesia/Blood Transfusion Reactions: No Reported Reaction Past Psychological History: Depression Smoking Status: Former smoker Past Alcohol Use History: None Reported Past Drug Use History: None Reported - Past Family History Father Family Medical History: Cancer Additional Family Medical History / Comment(s): THROAT CA Mother Family Medical History: Asthma, COPD Additional Family Medical History / Comment(s): MOTHER IS STILL LIVING. General Exam - General Exam Comments Initial Comments: General: The patient is awake and alert, in no distress, and does not appear acutely ill. Eye: Pupils are equal, round and reactive to light, extra-ocular movements are intact. No nystagmus. There is normal conjunctiva bilaterally. No signs of icterus. Ears, nose, mouth and throat: There are moist mucous membranes and no oral lesions. Neck: The neck is supple, there is no tenderness or JVD. Cardiovascular: There is a regular rate and rhythm. No murmur, rub or gallop is appreciated. Respiratory: Lungs are clear to auscultation, respirations are non-labored, breath sounds are equal. No wheezes, stridor, rales, or rhonchi. Musculoskeletal: Normal appearance of the cervical, thoracic, lumbar spine. No tenderness in cervical spine. Patient does have tenderness at T1 down through the lumbar spine. No step-offs or deformities. Strength 5/5. Sensation intact. Pulses equal bilaterally 2+. Neurological: A&O x 3. CN II-XII intact, There are no obvious motor or sensory deficits. Coordination appears grossly intact. Speech is normal. Skin: Skin is warm and dry and no rashes or lesions are noted. Psychiatric: Cooperative, appropriate mood & affect, normal judgment. Limitations: no limitations Course Vital Signs 10/23/17 10/23/17 10/23/17 11:22 11:47 13:00 Temperature 100.1 F H 98.7 F Pulse Rate 96 86 88 Respiratory 18 15 18 Rate Blood Pressure 177/102 136/90 127/79 O2 Sat by Pulse 99 97 Oximetry Medical Decision Making - Medical Decision Making X-rays reviewed negative for any fracture dislocation. Patient given Lidoderm patch in the emergency room with Toradol shot and discharged home with anti- inflammatories, Lidoderm and a muscle relaxant. Bicep muscle relaxant may make her drowsy. - Lab Data Lab Results 10/23/17 Range/Units 11:30 Urine HCG, Qual Not Detected (Not Detectd) Disposition Clinical Impression: Back pain Disposition: HOME SELF-CARE Condition: Good Instructions: Acute Low Back Pain (ED) Additional Instructions: Please use medication as discussed. Please follow-up with family doctor in the next 2 days of symptoms have not improved. Please return to emergency room if the symptoms increase or worsen or for any other concerns. Prescriptions: Cyclobenzaprine [Flexeril] 10 mg PO TID #20 tab Ibuprofen [Motrin] 800 mg PO Q6HR #30 tab Lidocaine [Lidoderm 5% Patch] 1 patch TRANSDERM DAILY #7 patch Referrals: Aissatou Hillman MD [Primary Care Provider] - 1-2 days Time of Disposition: 13:19
--- NOTE | 2017-10-23 12:50 | XR ---
EXAMINATION TYPE: XR thoracic spine complete DATE OF EXAM: 10/23/2017 CLINICAL HISTORY: Injury with mid back pain. TECHNIQUE: Frontal, lateral, and swimmer's view of thoracic spine are obtained. COMPARISON: Thoracic spine x-ray November 13, 2014 FINDINGS: Thoracic spine show stable and straightened alignment without evidence of acute fracture or dislocation. Vertebral body heights and disc space heights are preserved. Visualized pedicles and r ibs are unremarkable bilaterally. IMPRESSION: No acute fracture or dislocation is seen in the thoracic spine. No significant change fr om prior.
--- NOTE | 2017-10-23 12:52 | XR ---
EXAMINATION TYPE: XR lumbar spine 2 or 3V DATE OF EXAM: 10/23/2017 CLINICAL HISTORY: Chronic back pain worse after injury. TECHNIQUE: Frontal and lateral images of the lumbar spine are obtained. COMPARISON: Lumbar spine x-ray November 07, 2015. MRI lumbar spine December 18, 2016. FINDINGS: There are 5 lumbar type vertebral bodies identified. The lumbar spine shows satisfactory alignment without evidence of acute fracture or dislocation. Vertebral body heights remain within nor mal limits. There is redemonstration of mild to moderate disc space narrowing L4-L5 level and mild disc space narrowing L5-S1 level . The overlying soft tissue appears unremarkable. IMPRESSION: No acute fracture or dislocation is seen in the lumbar spine. No significant change from prior x-ray.
[2017-10-23] MEDS: KETOROLAC 60 MG/2 ML VIAL IM STA (13:25)
[2017-10-23] MEDS: LIDOCAINE 5% PATCH TOPICAL STA (13:37)
[2017-10-23 23:25] VITALS: BP 127/79; PULSE 88; RESP 18; TEMP 98.9
[2017-10-24] MEDS ORDERED: LIDOCAINE 5% PATCH TOPICAL SCH (09:00)
== END 2017-10-23 13:42 | disposition home or self-care (01) ==
LOC: EC 11:10
DX: M54.6 Pain in thoracic spine (principal); E11.9 Type 2 diabetes mellitus without complications; G40.909 Epilepsy, unspecified, not intractable, without status epilepticus; F32.9 Major depressive disorder, single episode, unspecified; Z87.891 Personal history of nicotine dependence; Z88.7 Allergy status to serum and vaccine; Z91.012 Allergy to eggs; Z91.010 Allergy to peanuts; Z79.84 Long term (current) use of oral hypoglycemic drugs; Z79.899 Other long term (current) drug therapy
CPT/HCPCS: 96372 ×2; 99284 ×2; 81025; 72072; 72100; J1885

== ENCOUNTER 2018-05-11 09:21 | Emergency (ER) | payer OTHER ==
[2018-05-11 09:31] VITALS: BP 130/86; PULSE 103; RESP 15; TEMP 98
[2018-05-11] MEDS ORDERED: LIDOCAINE 1% INJ 10MG/ML (20 ML MDV) SQ ONE (10:02)
--- NOTE | 2018-05-11 10:11 | ED ---
Back Pain HPI - General Chief Complaint: Back Pain/Injury Stated Complaint: Back Pain/Cyst Time Seen by Provider: 05/11/18 09:33 Source: patient Limitations: no limitations - History of Present Illness Initial Comments: 37-year-old female patient presents to the emergency department today for evaluation of increased low back pain with radiation down the left leg. Patient states that she has a history of chronic back pain with bulging disks and degenerative disks. States that over the last 3 days the pain has been worsening. Patient states that today the pain started to radiate down the left anterior thigh to the area of the knee. Patient denies any numbness or tingling to the leg. She denies any saddle anesthesia, loss of bladder or bladder function, or weakness to the lower extremities. Patient is also reporting a "cyst" to her right posterior shoulder. She was states that this has been burning and has had increased pain over the last couple of days. Patient denies any new injury to the back. Denies any history of drug or alcohol use. States she has been taking Tylenol and Motrin for symptoms without much relief. Patient denies any recent fever, chills, shortness breath, chest pain, abdominal pain, nausea, vomiting, diarrhea, constipation, dizziness , weakness, hematuria, dysuria, urinary urgency, urinary frequency, headache, visual changes, or any other complaints. - Related Data Home Medications Medication Instructions Recorded Confirmed Folic Acid 1 mg PO BID 02/03/15 05/11/18 levETIRAcetam [Keppra] 1,000 mg PO BID 02/28/15 05/11/18 metFORMIN HCL 1,000 mg PO BID 02/15/17 05/11/18 Desvenlafaxine Succinate [Pristiq 50 mg PO DAILY 09/12/17 05/11/18 ER] lamoTRIgine [LaMICtal] 75 mg PO BID 09/12/17 05/11/18 lamoTRIgine [LaMICtal] 200 mg PO BID 09/12/17 05/11/18 Previous Rx's Medication Instructions Recorded Cyclobenzaprine [Flexeril] 10 mg PO TID #20 tab 10/23/17 Ibuprofen [Motrin] 800 mg PO Q6HR #30 tab 10/23/17 Lidocaine [Lidoderm 5% Patch] 1 patch TRANSDERM DAILY #7 patch 10/23/17 Cephalexin [Keflex] 500 mg PO Q6H #40 cap 05/11/18 Cyclobenzaprine [Flexeril] 10 mg PO TID #15 tab 05/11/18 Ibuprofen [Motrin] 600 mg PO Q8HR PRN #30 tab 05/11/18 Sulfamethoxazole/Trimethoprim 1 each PO BID #20 tablet 05/11/18 [Bactrim DS 800-160 mg] Allergies Allergy/AdvReac Type Severity Reaction Status Date / Time egg yolk Allergy Anaphylaxis Verified 05/11/18 09:31 peanut Allergy Anaphylaxis Verified 05/11/18 09:31 influenza virus vaccine, AdvReac Unknown Verified 05/11/18 09:31 specific [Influenza Virus Vacc,Specific] Review of Systems ROS Statement: Those systems with pertinent positive or pertinent negative responses have been documented in the HPI. ROS Other: All systems not noted in ROS Statement are negative. Past Medical History Past Medical History: Asthma, Diabetes Mellitus, GERD/Reflux, Musculoskeletal Disorder, Seizure Disorder Additional Past Medical History / Comment(s): SEIZURES WITH FEVER A CHILD, BACK PAIN L4-L5, History of Any Multi-Drug Resistant Organisms: None Reported Past Surgical History: Cholecystectomy, Hernia Repair Additional Past Surgical History / Comment(s): 3 ABDOMINAL HERNIAS REPAIRED Past Anesthesia/Blood Transfusion Reactions: No Reported Reaction Past Psychological History: Depression Smoking Status: Former smoker Past Alcohol Use History: None Reported Past Drug Use History: None Reported - Past Family History Father Family Medical History: Cancer Additional Family Medical History / Comment(s): THROAT CA Mother Family Medical History: Asthma, COPD Additional Family Medical History / Comment(s): MOTHER IS STILL LIVING. General Exam Limitations: no limitations General appearance: alert, in no apparent distress, other (This is a well- developed, well-nourished adult female patient in no acute distress. Vital signs upon presentation are temperature 98.0F, pulse 103, respirations 15, blood pressure 130/86, pulse ox 100% on room air.) Eye exam: Present: normal appearance, PERRL, EOMI. Absent: scleral icterus, conjunctival injection, periorbital swelling ENT exam: Present: normal exam, normal oropharynx, mucous membranes moist Respiratory exam: Present: normal lung sounds bilaterally. Absent: respiratory distress, wheezes, rales, rhonchi, stridor Cardiovascular Exam: Present: regular rate, normal rhythm, normal heart sounds. Absent: systolic murmur, diastolic murmur, rubs, gallop, clicks GI/Abdominal exam: Present: soft, normal bowel sounds. Absent: distended, tenderness, guarding, rebound, rigid Back exam: Present: normal inspection Neurological exam: Present: alert, oriented X3, CN II-XII intact Psychiatric exam: Present: normal affect, normal mood Skin exam: Present: warm, dry, intact, normal color. Absent: rash Course Vital Signs 05/11/18 09:26 Temperature 98 F Pulse Rate 103 H Respiratory 15 Rate Blood Pressure 130/86 O2 Sat by Pulse 100 Oximetry Procedures - Incision & Drainage Consent Obtained: verbal consent Indication: abscess Site: back (Right upper) Size (cm): 2 Anesthetic Used: lidocaine 1% Amount (mLs): 2 I&D Cleaning Method: Betadine Needle Aspiration Performed?: Yes (Punctured with 18g needle) I&D Drainage Obtained: Pus, Blood Culture Obtained?: Yes Complications: pain Patient Tolerated Procedure: well Medical Decision Making - Medical Decision Making 37-year-old female patient presents to the emergency department today for evaluation of increased low back pain with radiation down the right anterior thigh. Physical examination is unremarkable. Patient is neurologically intact. Patient is an abdominal pain, abnormal vaginal bleeding, or abnormal vaginal discharge. Vital signs are stable with no evidence of fever. Patient left paraspinal tenderness no evidence of erythema or inflammation. Patient also had an abscess to the right posterior shoulder. I did drain the abscess using 18-gauge needle puncture. Did obtain culture. Patient will be discharged home with anti-inflammatory pain medication and muscle relaxers. She 'll be given prescription for Bactrim and Keflex. She is instructed to follow- up with her primary care physician for recheck in 1-2 days. Return parameters discussed in detail. She verbalizes understanding and agrees with this plan. - Lab Data Lab Results 05/11/18 Range/Units 10:10 Urine HCG, Qual Not Detected (Not Detectd) Disposition Clinical Impression: Cutaneous abscess of back [any part, except buttock], Lumbar radiculopathy Disposition: HOME SELF-CARE Condition: Good Instructions: Abscess (ED), Lumbar Radiculopathy (ED), Lower Back Exercises (ED ) Additional Instructions: Apply warm moist heat to the low back. Perform gentle range of motion exercises. Take medications as directed. Follow-up with your primary care physician for recheck in 1-2 days. Return here immediately for any new, worsening, or concerning symptoms. Prescriptions: Cephalexin [Keflex] 500 mg PO Q6H #40 cap Cyclobenzaprine [Flexeril] 10 mg PO TID #15 tab Ibuprofen [Motrin] 600 mg PO Q8HR PRN #30 tab PRN Reason: Pain Sulfamethoxazole/Trimethoprim [Bactrim DS 800-160 mg] 1 each PO BID #20 tablet Is patient prescribed a controlled substance at d/c from ED?: No Referrals: Aissatou Hillman MD [Primary Care Provider] - 1-2 days Time of Disposition: 11:01
[2018-05-11] MEDS ORDERED: ORPHENADRINE 30 MG/ML 2 ML VIAL IM STA (10:51)
[2018-05-11] MEDS ORDERED: KETOROLAC 30 MG/ML 1 ML VIAL IM STA (10:51)
== END 2018-05-11 11:35 | disposition home or self-care (01) ==
LOC: EC 09:21
DX: L02.212 Cutaneous abscess of back [any part, except buttock and flank] (principal); M54.16 Radiculopathy, lumbar region; E11.9 Type 2 diabetes mellitus without complications; G40.909 Epilepsy, unspecified, not intractable, without status epilepticus; F32.9 Major depressive disorder, single episode, unspecified; Z87.891 Personal history of nicotine dependence; Z79.84 Long term (current) use of oral hypoglycemic drugs; Z79.899 Other long term (current) drug therapy; Z88.7 Allergy status to serum and vaccine; Z91.010 Allergy to peanuts; Z91.012 Allergy to eggs
CPT/HCPCS: 81025; 87070; 87205; 99283; 10060; 96372 ×2; J2360; J2001; J1885; 87077; 87186

== ENCOUNTER → 2018-10-30 | Outpatient (CLI) | payer OTHER | END | disposition home or self-care (01) | LOC: LABWHC1 09:34 | PROVIDERS: ATTEND Family Medicine | DX: I10 Essential (primary) hypertension (principal) | CPT/HCPCS: 36415; 82565; 84520 ==

== ENCOUNTER → 2018-11-18 | Outpatient (CLI) | payer OTHER | END | disposition home or self-care (01) | LOC: LABWHC1 11:13 | PROVIDERS: ATTEND Psychiatry & Neurology Neurology | DX: G40.209 Localization-related (focal) (partial) symptomatic epilepsy and epileptic syndromes with complex partial seizures, not intractable, without status epilepticus (principal) | CPT/HCPCS: 36415; 80175 ==

== ENCOUNTER 2018-12-14 07:49 | Emergency (ER) | payer OTHER ==
[2018-12-14] MEDS ORDERED: ALBUTEROL NEBULIZED (CONC) 5 MG, SODIUM CHLORIDE 0.9% NEBULIZ 3 ML INHALATION STA ×2 (08:05)
[2018-12-14] MEDS ORDERED: IPRATROPIUM 0.5 MG/2.5 ML NEBU INHALATION STA (08:06)
[2018-12-14] MEDS ORDERED: methylPREDNISolone SOD SUCCI 125 MG/2 ML VIAL IM ONE (08:07)
[2018-12-14] MEDS ORDERED: ACETAMINOPHEN TAB 500 MG TAB PO STA (08:09)
--- NOTE | 2018-12-14 08:09 | ED ---
General Adult HPI - General Chief complaint: Shortness of Breath Stated complaint: Diff Breathing Time Seen by Provider: 12/14/18 08:00 Source: patient, RN notes reviewed Mode of arrival: wheelchair Limitations: no limitations - History of Present Illness Initial comments: This is a 38-year-old female who presents emergency department with past medical history significant for asthma. Patient states she has been having difficulty breathing for the last few days she went to [facility] and put on a Medrol Dosepak and told she had a viral bronchitis. Patient states breathing hasn't got any better she has been taking the steroid and her breathing treatments at home but it's not improving. Patient states last night the symptoms got worse and this morning she continues to have a hard time breathing so she decided to come the emergency department. Patient states she's had a low -grade fever. Patient states she did not get a flu shot she is ALLERGIC to it. Patient denies any chest pain or palpitations. Patient denies any abdominal pain patient nausea or vomiting. Patient denies any lightheadedness dizziness. Patient denies any swelling to legs or calf tenderness. - Related Data Home Medications Medication Instructions Recorded Confirmed Folic Acid 1 mg PO BID 02/03/15 05/11/18 levETIRAcetam [Keppra] 1,000 mg PO BID 02/28/15 05/11/18 metFORMIN HCL 1,000 mg PO BID 02/15/17 05/11/18 Desvenlafaxine Succinate [Pristiq 50 mg PO DAILY 09/12/17 05/11/18 ER] lamoTRIgine [LaMICtal] 75 mg PO BID 09/12/17 05/11/18 lamoTRIgine [LaMICtal] 200 mg PO BID 09/12/17 05/11/18 Previous Rx's Medication Instructions Recorded Cyclobenzaprine [Flexeril] 10 mg PO TID #20 tab 10/23/17 Ibuprofen [Motrin] 800 mg PO Q6HR #30 tab 10/23/17 Lidocaine [Lidoderm 5% Patch] 1 patch TRANSDERM DAILY #7 patch 10/23/17 Cephalexin [Keflex] 500 mg PO Q6H #40 cap 05/11/18 Cyclobenzaprine [Flexeril] 10 mg PO TID #15 tab 05/11/18 Ibuprofen [Motrin] 600 mg PO Q8HR PRN #30 tab 05/11/18 Sulfamethoxazole/Trimethoprim 1 each PO BID #20 tablet 05/11/18 [Bactrim DS 800-160 mg] Azithromycin [Zithromax Tri-Preston] 500 mg PO DAILY #3 tab 12/14/18 predniSONE 20 mg PO TID 4 Days tab 12/14/18 Allergies Allergy/AdvReac Type Severity Reaction Status Date / Time egg yolk Allergy Anaphylaxis Verified 12/14/18 07:58 peanut Allergy Anaphylaxis Verified 12/14/18 07:58 influenza virus vaccine, AdvReac Unknown Verified 12/14/18 07:58 specific [Influenza Virus Vacc,Specific] Review of Systems ROS Statement: Those systems with pertinent positive or pertinent negative responses have been documented in the HPI. ROS Other: All systems not noted in ROS Statement are negative. Past Medical History Past Medical History: Asthma, Diabetes Mellitus, GERD/Reflux, Musculoskeletal Disorder, Seizure Disorder Additional Past Medical History / Comment(s): SEIZURES WITH FEVER A CHILD, BACK PAIN L4-L5, History of Any Multi-Drug Resistant Organisms: MRSA Date of last positivie culture/infection: 05/11/18 MDRO Source:: BACK Past Surgical History: Cholecystectomy, Hernia Repair Additional Past Surgical History / Comment(s): 3 ABDOMINAL HERNIAS REPAIRED Past Anesthesia/Blood Transfusion Reactions: No Reported Reaction Past Psychological History: Depression Smoking Status: Former smoker Past Alcohol Use History: None Reported Past Drug Use History: None Reported - Past Family History Father Family Medical History: Cancer Additional Family Medical History / Comment(s): THROAT CA Mother Family Medical History: Asthma, COPD Additional Family Medical History / Comment(s): MOTHER IS STILL LIVING. General Exam - General Exam Comments Initial Comments: GENERAL: Patient is well-developed and well-nourished. Patient is nontoxic and well- hydrated and is in mild distress. ENT: Neck is soft and supple. No significant lymphadenopathy is noted. Oropharynx is clear. Moist mucous membranes. Neck has full range of motion without eliciting any pain. EYES: The sclera were anicteric and conjunctiva were pink and moist. Extraocular movements were intact and pupils were equal round and reactive to light. Eyelids were unremarkable. PULMONARY: Patient has diffuse expiratory wheezing. CARDIOVASCULAR: There is a regular rate and rhythm without any murmurs gallops or rubs. ABDOMEN: Soft and nontender with normal bowel sounds. No palpable organomegaly was noted. There is no palpable pulsatile mass. SKIN: Skin is clear with no lesions or rashes and otherwise unremarkable. NEUROLOGIC: Patient is alert and oriented x3. Cranial nerves II through XII are grossly intact. Motor and sensory are also intact. Normal speech, volume and content. Symmetrical smile. MUSCULOSKELETAL: Normal extremities with adequate strength and full range of motion. No lower extremity swelling or edema. No calf tenderness. LYMPHATICS: No significant lymphadenopathy is noted PSYCHIATRIC: Normal psychiatric evaluation. Limitations: no limitations Course Vital Signs 12/14/18 12/14/18 12/14/18 07:57 08:23 08:43 Temperature 99.9 F H Pulse Rate 107 H 100 100 Respiratory 25 H Rate Blood Pressure 136/78 O2 Sat by Pulse 95 Oximetry Medical Decision Making - Medical Decision Making Chest x-ray shows possible right upper lobe infiltrate. Patient will be treated as if there is a pneumonia with bronchospasms. Patient got 2 breathing treatments and was feeling much better however patient still had some extra auditory wheezing but was oxygenating well feeling better. Patient also received Solu-Medrol. Patient also received Rocephin and a prescription for Zithromax. Disposition Clinical Impression: Bronchitis with bronchospasm Disposition: HOME SELF-CARE Instructions (If sedation given, give patient instructions): Acute Bronchitis ( ED), Bronchospasm (ED) Prescriptions: Azithromycin [Zithromax Tri-Preston] 500 mg PO DAILY #3 tab predniSONE 20 mg PO TID 4 Days tab Is patient prescribed a controlled substance at d/c from ED?: No Referrals: Faith Segovia MD [Primary Care Provider] - 1-2 days Time of Disposition: 09:34
[2018-12-14] MEDS ORDERED: cefTRIAXone 1,000 MG VIAL (IM USE) IM STA (09:35)
--- NOTE | 2018-12-14 09:55 | XR ---
EXAMINATION TYPE: XR chest 2V DATE OF EXAM: 12/14/2018 COMPARISON: 09/12/2017 INDICATION: Difficulty breathing TECHNIQUE: Frontal and lateral views of the chest are obtained. FINDINGS: The heart size is normal. The pulmonary vasculature is normal. The lungs are clear. IMPRESSION: 1. No acute pulmonary process.
[2018-12-14 10:05] VITALS: BP 126/72; PULSE 108; RESP 18; TEMP 98.5
== END 2018-12-14 10:04 | disposition home or self-care (01) ==
LOC: EC 07:49
DX: J45.909 Unspecified asthma, uncomplicated (principal); G40.909 Epilepsy, unspecified, not intractable, without status epilepticus; E11.9 Type 2 diabetes mellitus without complications; F32.9 Major depressive disorder, single episode, unspecified; Z86.14 Personal history of Methicillin resistant Staphylococcus aureus infection; Z87.891 Personal history of nicotine dependence; Z79.84 Long term (current) use of oral hypoglycemic drugs; Z79.899 Other long term (current) drug therapy; Z91.010 Allergy to peanuts; Z91.012 Allergy to eggs; Z88.7 Allergy status to serum and vaccine
CPT/HCPCS: 94640; 71046; 99285; 96372 ×2; J2930; J0696

== ENCOUNTER 2018-12-18 11:24 | Emergency (ER) | payer OTHER ==
[2018-12-18 11:43] VITALS: BP 120/71; PULSE 111; RESP 18; TEMP 98.4
[2018-12-18] MEDS ORDERED: MORPHINE SULFATE 4 MG/ML SYRINGE IM STA (12:32)
[2018-12-18] MEDS ORDERED: KETOROLAC 30 MG/ML 1 ML VIAL IM STA (12:32)
[2018-12-18] MEDS ORDERED: ACET/COD 300 MG/30 MG STARTER PACK 6 TAB BTL PO STA (12:45)
--- NOTE | 2018-12-18 12:53 | ED ---
General Adult HPI - General Chief complaint: Back Pain/Injury Stated complaint: back pain Time Seen by Provider: 12/18/18 11:58 Source: patient, RN notes reviewed, old records reviewed Mode of arrival: ambulatory Limitations: no limitations - History of Present Illness Initial comments: Patient is a 38-year-old female who presents emergency with acute exacerbation of chronic back pain. Patient states that she is on Flexeril and ibuprofen from her PCP. She is supposed to be seeing a pain management doctor shortly. Patient states that the pain became more severe over the past 2 days. Patient has had no falls or trauma. Patient states the pain is in her upper and mid back. Patient states that she feels that her muscles are very tense. She denies any peripheral paresthesias or saddle anesthesias. - Related Data Home Medications Medication Instructions Recorded Confirmed Folic Acid 2 mg PO BID 02/03/15 12/18/18 lamoTRIgine [LaMICtal] 75 mg PO BID 09/12/17 12/18/18 lamoTRIgine [LaMICtal] 200 mg PO BID 09/12/17 12/18/18 Albuterol Nebulized (Conc) 2.5 mg INHALATION RT-QID PRN 12/14/18 12/18/18 [Ventolin Nebulized (Conc)] traZODone HCL [Desyrel] 100 mg PO HS 12/14/18 12/18/18 Desvenlafaxine Succinate [Pristiq] 200 mg PO DAILY 12/18/18 12/18/18 Lisinopril 20 mg PO DAILY 12/18/18 12/18/18 Naproxen 500 mg PO Q12H PRN 12/18/18 12/18/18 metFORMIN HCL [Glucophage] 500 mg PO BID 12/18/18 12/18/18 Previous Rx's Medication Instructions Recorded Dexamethasone 0.75 mg PO DAILY #12 tab 12/18/18 Allergies Allergy/AdvReac Type Severity Reaction Status Date / Time egg yolk Allergy Anaphylaxis Verified 12/18/18 12:01 peanut Allergy Anaphylaxis Verified 12/18/18 12:01 influenza virus vaccine, AdvReac Unknown Verified 12/18/18 12:01 specific [Influenza Virus Vacc,Specific] Review of Systems ROS Statement: Those systems with pertinent positive or pertinent negative responses have been documented in the HPI. ROS Other: All systems not noted in ROS Statement are negative. Past Medical History Past Medical History: Asthma, Diabetes Mellitus, GERD/Reflux, Musculoskeletal Disorder, Seizure Disorder Additional Past Medical History / Comment(s): SEIZURES WITH FEVER A CHILD, BACK PAIN L4-L5, History of Any Multi-Drug Resistant Organisms: MRSA Date of last positivie culture/infection: 05/11/18 MDRO Source:: BACK Past Surgical History: Cholecystectomy, Hernia Repair Additional Past Surgical History / Comment(s): 3 ABDOMINAL HERNIAS REPAIRED Past Anesthesia/Blood Transfusion Reactions: No Reported Reaction Past Psychological History: Depression Smoking Status: Former smoker Past Alcohol Use History: None Reported Past Drug Use History: None Reported - Past Family History Father Family Medical History: Cancer Additional Family Medical History / Comment(s): THROAT CA Mother Family Medical History: Asthma, COPD Additional Family Medical History / Comment(s): MOTHER IS STILL LIVING. General Exam - General Exam Comments Initial Comments: Patient is a 38-year-old female. Alert and oriented 3. Patient appears in no significant distress. General: Well appearing, well nourished, in no distress. Oriented x 3, normal mood and affect . Ambulating without difficulty. Skin: Good turgor, no rash, unusual bruising or prominent lesions Hair: Normal texture and distribution. HEENT: Head: Normocephalic, atraumatic, no visible or palpable masses, depressions, or scaring. Eyes: Visual acuity intact, conjunctiva clear, sclera non-icteric, EOM intact, PERRL. Ears: EACs clear, TMs translucent & cone of light visualized. hearing intact. Nose: No external lesions, mucosa non-inflamed, septum and turbinates normal Mouth: Mucous membranes moist, no mucosal lesions. Teeth/Gums: No obvious caries or periodontal disease. No gingival inflammation or significant resorption. Pharynx: Mucosa non-inflamed, no tonsillar hypertrophy or exudate Neck: Supple, without lesions, bruits, or adenopathy, thyroid non-enlarged and non-tender Heart: No cardiomegaly or thrills; regular rate and rhythm, no murmur or gallop Lungs: Clear to auscultation and percussion Abdomen: Bowel sounds normal, no tenderness, organomegaly, masses, or hernia Back: Spine normal without deformity vision is paraspinal muscle spasms over thoracic and lumbar spine. Extremities: No amputations or deformities, cyanosis, edema or varicosities, peripheral pulses intact Musculoskeletal: Normal gait and station. No misalignment, asymmetry, crepitation, defects, tenderness, masses, effusions, decreased range of motion, instability, atrophy or abnormal strength or tone in the head, neck, spine, ribs , pelvis or extremities. Neurologic: CN 2-12 normal. Sensation to pain, touch, and proprioception normal. DTRs normal in upper and lower extremities. No pathologic reflexes. Psychiatric: Oriented X3, intact recent and remote memory, judgment and insight , normal mood and affect. Limitations: no limitations Course Vital Signs 12/18/18 11:40 Temperature 98.4 F Pulse Rate 111 H Respiratory 18 Rate Blood Pressure 120/71 O2 Sat by Pulse 98 Oximetry Medical Decision Making - Medical Decision Making pain 8-year-old female presents emergency room with acute exacerbation of chronic back pain. Nontraumatic. No recent falls or any twisting or lifting. I discussed no need for further imaging. She had a recent MRI. She is supposed to be in seeing a spray ii painter Patient is given IM Toradol and IM pain medication here. She is currently on Flexeril. I discussed that I will not write her any narcotic medication until she sees her spray ii painter. Patient agrees to this. Also discussed the need for further imaging is patient's had no pulse, and she agrees as well. Patient will be discharged home at this time with instructions for heat and ice as well as close follow-up with her PCP. TRANSFER RETURN PARAMETERS WERE DISCUSSED. Disposition Clinical Impression: Chronic back pain Disposition: HOME SELF-CARE Condition: Good Instructions (If sedation given, give patient instructions): Chronic Back Pain (ED) Additional Instructions: Follow-up with PCP and spray ii painter. Patient he continues the steroid taper for inflammation. Continue to use at-home Flexeril and alternate Motrin and Tylenol. Return to emergency department if any alarming signs or symptoms occur. Prescriptions: Dexamethasone 0.75 mg PO DAILY #12 tab Is patient prescribed a controlled substance at d/c from ED?: No Referrals: Faith Segovia MD [Primary Care Provider] - 1-2 days Time of Disposition: 12:51
== END 2018-12-18 13:02 | disposition home or self-care (01) ==
LOC: EC 11:24
DX: G89.29 Other chronic pain (principal); M54.9 Dorsalgia, unspecified; J45.909 Unspecified asthma, uncomplicated; E11.9 Type 2 diabetes mellitus without complications; G40.909 Epilepsy, unspecified, not intractable, without status epilepticus; F32.9 Major depressive disorder, single episode, unspecified; Z79.899 Other long term (current) drug therapy; Z79.84 Long term (current) use of oral hypoglycemic drugs; Z91.012 Allergy to eggs; Z91.010 Allergy to peanuts; Z88.7 Allergy status to serum and vaccine; Z87.891 Personal history of nicotine dependence
CPT/HCPCS: 99283; 96372 ×2; J2270; J1885

== ENCOUNTER 2019-02-21 14:06 | Emergency (ER) | payer OTHER ==
[2019-02-21 14:14] VITALS: BP 125/79; PULSE 105; RESP 18; TEMP 98.1
[2019-02-21 14:41] LABS: Appearance,Urine Turbid (Clear); Bacteria,Urine Rare /hpf; Bilirubin,Urine Negative (Negative); Blood,Urine Large (Negative); Color,Urine Yellow; Glucose,Urine (UA) 4+ (Negative); Ketones,Urine 1+ (Negative); Leukocyte Esterase,Urine Large (Negative); Nitrite,Urine Positive (Negative); PH, Urine 5.5 (5.0-8.0); Protein,Urine 2+ (Negative); RBC,Urine >182 /hpf (0-5); Specific Gravity,Urine 1.028 (1.001-1.035); Squamous Epithelial Cell,Urine 2 /hpf (0-4); Urobilinogen,Urine <2.0 mg/dL (<2.0)
[2019-02-21] MEDS ORDERED: PHENAZOPYRIDINE 100 MG TAB PO STA (14:57)
[2019-02-21] MEDS ORDERED: NITROFURANTOIN MONOHYD/M-CRYST 100 MG CAP PO STA (14:57)
--- NOTE | 2019-02-21 15:27 | ED ---
Female Urogenital HPI - General Chief complaint: Urogenital Stated complaint: Urogenital Time Seen by Provider: 02/21/19 14:24 Source: patient, RN notes reviewed, old records reviewed Mode of arrival: ambulatory Limitations: no limitations - History of Present Illness Initial comments: 38-year-old female presents today for evaluation for dysuria times past day. She thinks that she has urinary tract infection. She complains of polyuria, burning with urination and unable to fully empty her bladder. She states that she's had a history of each as well as Patient denies any new back pain. Denies fevers chills or nausea or vomiting. She denies vaginal discharge. Patient denies any recent fever, chills, shortness of breath, chest pain, back pain, abdominal pain, numbness or tingling, , constipation or diarrhea, headaches or visual changes, or any other current symptoms - Related Data Home Medications Medication Instructions Recorded Confirmed Folic Acid 2 mg PO BID 02/03/15 12/18/18 lamoTRIgine [LaMICtal] 75 mg PO BID 09/12/17 12/18/18 lamoTRIgine [LaMICtal] 200 mg PO BID 09/12/17 12/18/18 Albuterol Nebulized (Conc) 2.5 mg INHALATION RT-QID PRN 12/14/18 12/18/18 [Ventolin Nebulized (Conc)] traZODone HCL [Desyrel] 100 mg PO HS 12/14/18 12/18/18 Desvenlafaxine Succinate [Pristiq] 200 mg PO DAILY 12/18/18 12/18/18 Lisinopril 20 mg PO DAILY 12/18/18 12/18/18 Naproxen 500 mg PO Q12H PRN 12/18/18 12/18/18 metFORMIN HCL [Glucophage] 500 mg PO BID 12/18/18 12/18/18 Previous Rx's Medication Instructions Recorded Dexamethasone 0.75 mg PO DAILY #12 tab 12/18/18 Nitrofurantoin Monohyd/M-Cryst 100 mg PO Q12HR #14 cap 02/21/19 [Macrobid] Phenazopyridine [Pyridium] 100 mg PO TID #9 tablet 02/21/19 Allergies Allergy/AdvReac Type Severity Reaction Status Date / Time egg yolk Allergy Anaphylaxis Verified 02/21/19 14:14 peanut Allergy Anaphylaxis Verified 02/21/19 14:14 influenza virus vaccine, AdvReac Unknown Verified 02/21/19 14:14 specific [Influenza Virus Vacc,Specific] Review of Systems ROS Statement: Those systems with pertinent positive or pertinent negative responses have been documented in the HPI. ROS Other: All systems not noted in ROS Statement are negative. Past Medical History Past Medical History: Asthma, Diabetes Mellitus, GERD/Reflux, Musculoskeletal Disorder, Seizure Disorder Additional Past Medical History / Comment(s): SEIZURES WITH FEVER A CHILD, BACK PAIN L4-L5, History of Any Multi-Drug Resistant Organisms: MRSA Date of last positivie culture/infection: 05/11/18 MDRO Source:: BACK Past Surgical History: Cholecystectomy, Hernia Repair Additional Past Surgical History / Comment(s): 3 ABDOMINAL HERNIAS REPAIRED Past Anesthesia/Blood Transfusion Reactions: No Reported Reaction Past Psychological History: Depression Smoking Status: Current every day smoker Past Alcohol Use History: None Reported Past Drug Use History: None Reported - Past Family History Father Family Medical History: Cancer Additional Family Medical History / Comment(s): THROAT CA Mother Family Medical History: Asthma, COPD Additional Family Medical History / Comment(s): MOTHER IS STILL LIVING. General Exam - General Exam Comments Initial Comments: 38-year-old female. Alert and oriented. No distress. General: Well appearing, well nourished, in no distress. Oriented x 3, normal mood and affect . Ambulating without difficulty. Skin: Good turgor, no rash, unusual bruising or prominent lesions Hair: Normal texture and distribution. HEENT: Head: Normocephalic, atraumatic, no visible or palpable masses, depressions, or scaring. Neck: Supple, without lesions, bruits, or adenopathy, thyroid non-enlarged and non-tender Heart: No cardiomegaly or thrills; regular rate and rhythm, no murmur or gallop Lungs: Clear to auscultation and percussion Abdomen: Bowel sounds normal, suprapubic tenderness. Back: Spine normal without deformity or tenderness, no CVA tenderness Extremities: No amputations or deformities, cyanosis, edema or varicosities, peripheral pulses intact Musculoskeletal: Normal gait and station. No misalignment, asymmetry, crepitation, defects, tenderness, masses, effusions, decreased range of motion, instability, atrophy or abnormal strength or tone in the head, neck, spine, ribs, pelvis or extremities. Neurologic: CN 2-12 normal. Sensation to pain, touch, and proprioception normal. DTRs normal in upper and lower extremities. No pathologic reflexes. Limitations: no limitations Course Vital Signs 02/21/19 14:11 Temperature 98.1 F Pulse Rate 105 H Respiratory 18 Rate Blood Pressure 125/79 O2 Sat by Pulse 99 Oximetry Medical Decision Making - Medical Decision Making Patient's a 38-year-old female present with dysuria times one day. Patient has evidence of significant UTI. Glucose and urine Patient is a diabetic on metformin. Patient is no CVA tenderness otherwise appears well. She does have some minor superpubic tenderness. We'll start the Patient on Macrobid and Pyridium. Discussed appropriate follow-up with her PCP. O questions answered. Urine culture completed. - Lab Data Lab Results 02/21/19 Range/Units 14:25 Urine Color Yellow Urine Appearance Turbid H (Clear) Urine pH 5.5 (5.0-8.0) Ur Specific [place] 1.028 (1.001-1.035) Urine Protein 2+ H (Negative) Urine Glucose (UA) 4+ H (Negative) Urine Ketones 1+ H (Negative) Urine Blood Large H (Negative) Urine Nitrite Positive H (Negative) Urine Bilirubin Negative (Negative) Urine Urobilinogen <2.0 (<2.0) mg/dL Ur Leukocyte Esterase Large H (Negative) Urine RBC >182 H (0-5) /hpf Urine WBC >182 H (0-5) /hpf Urine WBC Clumps Few H (None) /hpf Ur Squamous Epith Cells 2 (0-4) /hpf Urine Bacteria Rare H (None) /hpf Disposition Clinical Impression: UTI (urinary tract infection) Disposition: HOME SELF-CARE Condition: Good Instructions (If sedation given, give patient instructions): Urinary Tract Infection in Women (ED) Additional Instructions: Patient advised to follow-up with her PCP. Return to the emergency department if any alarming signs or symptoms occur. Prescriptions: Nitrofurantoin Monohyd/M-Cryst [Macrobid] 100 mg PO Q12HR #14 cap Phenazopyridine [Pyridium] 100 mg PO TID #9 tablet Is patient prescribed a controlled substance at d/c from ED?: No Referrals: Faith Segovia MD [Primary Care Provider] - 1-2 days Time of Disposition: 15:26
== END 2019-02-21 15:35 | disposition home or self-care (01) ==
LOC: EC 14:06
DX: N39.0 Urinary tract infection, site not specified (principal); J45.909 Unspecified asthma, uncomplicated; E11.9 Type 2 diabetes mellitus without complications; G40.909 Epilepsy, unspecified, not intractable, without status epilepticus; F32.9 Major depressive disorder, single episode, unspecified; F17.200 Nicotine dependence, unspecified, uncomplicated; Z86.14 Personal history of Methicillin resistant Staphylococcus aureus infection; Z79.84 Long term (current) use of oral hypoglycemic drugs; Z79.899 Other long term (current) drug therapy; Z91.012 Allergy to eggs; Z88.7 Allergy status to serum and vaccine; Z91.010 Allergy to peanuts
CPT/HCPCS: 81001; 87077; 87086; 87186; 99284

== ENCOUNTER 2019-03-02 08:08 | Observation (INO) | payer OTHER ==
[2019-03-02] MEDS ORDERED: SODIUM CHLORIDE 0.9% 500 ML 500 ML IV STA (08:25)
[2019-03-02] MEDS ORDERED: methylPREDNISolone SOD SUCCI 125 MG/2 ML VIAL IV STA (08:25)
[2019-03-02] MEDS ORDERED: IPRATROPIUM-ALBUTEROL 3 ML NEB INHALATION STA (08:25)
[2019-03-02 08:58] LABS: Basophils # (A) 0.1 k/uL (0-0.2); Basophils % (A) 1 %; Eosinophils # (A) 0.6 k/uL (0-0.7); Eosinophils % (A) 6 %; HCT 37.5 % (34.0-46.0); HGB 11.3 gm/dL (11.4-16.0); Hypochromasia Moderate; Lymphocytes # (A) 1.7 k/uL (1.0-4.8); Lymphocytes % (A) 17 %; MCH 22.2 pg (25.0-35.0); MCHC 30.3 g/dL (31.0-37.0); MCV 73.3 fL (80.0-100.0); Mean Platelet Volume 6.5; Microcytosis Slight; Monocytes # (A) 0.4 k/uL (0-1.0); Monocytes % (A) 4 %; Neutrophils % (A) 71 %; Platelet Count 364 k/uL (150-450); RBC 5.11 m/uL (3.80-5.40); RDW 15.3 % (11.5-15.5); WBC 9.8 k/uL (3.8-10.6)
[2019-03-02 09:02] LABS: ALT 30 U/L (9-52); AST 23 U/L (14-36); Albumin 4.3 g/dL (3.5-5.0); Alkaline Phosphatase 81 U/L (38-126); Anion Gap 11 mmol/L; Blood Urea Nitrogen 13 mg/dL (7-17); Calcium 8.8 mg/dL (8.4-10.2); Carbon Dioxide 21 mmol/L (22-30); Chloride 105 mmol/L (98-107); Glucose 286 mg/dL (74-99); Magnesium 1.8 mg/dL (1.6-2.3); Potassium 4.8 mmol/L (3.5-5.1); Sodium 137 mmol/L (137-145); Total Bilirubin 0.4 mg/dL (0.2-1.3); Total Protein 6.7 g/dL (6.3-8.2)
--- NOTE | 2019-03-02 09:28 | ED ---
SOB HPI - General Source: patient, RN notes reviewed Mode of arrival: ambulatory Limitations: no limitations <Jake Clinton - Last Filed: 03/02/19 10:04> <Kevin Roberts - Last Filed: 03/02/19 10:14> - General Chief Complaint: Shortness of Breath Stated Complaint: Sob Time Seen by Provider: 03/02/19 08:18 - History of Present Illness Initial Comments: 38-year-old female presents emergency Department with chief complaint shortness of breath. Patient states she started having increasing shortness with yesterday. She does have a history of asthma as a former smoker.. Patient denies any fevers or chills. Patient states she has a slight productive cough. She also has a mild sinus congestion. Denies chest pain or pleuritic pain. Patient has not Saturday or constipation. Patient has been doing treatments at home states that it's not improving her symptoms. (Jake Clinton) - Related Data Home Medications Medication Instructions Recorded Confirmed lamoTRIgine [LaMICtal] 75 mg PO BID 09/12/17 03/02/19 lamoTRIgine [LaMICtal] 200 mg PO BID 09/12/17 03/02/19 traZODone HCL [Desyrel] 100 mg PO HS 12/14/18 03/02/19 Desvenlafaxine Succinate [Pristiq] 200 mg PO DAILY 12/18/18 03/02/19 Lisinopril 20 mg PO DAILY 12/18/18 03/02/19 metFORMIN HCL [Glucophage] 500 mg PO BID 12/18/18 03/02/19 Albuterol Inhaler [Ventolin Hfa 1 - 2 puff INHALATION RT-Q6H PRN 03/02/19 03/02/19 Inhaler] Albuterol Nebulized [Ventolin 2.5 mg INHALATION RT-Q6H PRN 03/02/19 03/02/19 Nebulized] Allergies Allergy/AdvReac Type Severity Reaction Status Date / Time egg yolk Allergy Anaphylaxis Verified 03/02/19 08:32 peanut Allergy Anaphylaxis Verified 03/02/19 08:32 influenza virus vaccine, AdvReac Unknown Verified 03/02/19 08:32 specific [Influenza Virus Vacc,Specific] Review of Systems ROS Other: All systems not noted in ROS Statement are negative. <Jake Clinton - Last Filed: 03/02/19 10:04> ROS Other: All systems not noted in ROS Statement are negative. <Kevin Roberts - Last Filed: 03/02/19 10:14> ROS Statement: Those systems with pertinent positive or pertinent negative responses have been documented in the HPI. Past Medical History Past Medical History: Asthma, Diabetes Mellitus, GERD/Reflux, Musculoskeletal Disorder, Seizure Disorder Additional Past Medical History / Comment(s): SEIZURES WITH FEVER A CHILD, BACK PAIN L4-L5, History of Any Multi-Drug Resistant Organisms: MRSA Date of last positivie culture/infection: 05/11/18 MDRO Source:: BACK Past Surgical History: Cholecystectomy, Hernia Repair Additional Past Surgical History / Comment(s): 3 ABDOMINAL HERNIAS REPAIRED Past Anesthesia/Blood Transfusion Reactions: No Reported Reaction Past Psychological History: Depression Smoking Status: Current every day smoker Past Alcohol Use History: None Reported Past Drug Use History: None Reported - Past Family History Father Family Medical History: Cancer Additional Family Medical History / Comment(s): THROAT CA Mother Family Medical History: Asthma, COPD Additional Family Medical History / Comment(s): MOTHER IS STILL LIVING. <Jake Clinton M - Last Filed: 03/02/19 10:04> General Exam Limitations: no limitations General appearance: alert, in no apparent distress Head exam: Present: atraumatic, normocephalic, normal inspection Eye exam: Present: normal appearance, PERRL, EOMI. Absent: scleral icterus, conjunctival injection, periorbital swelling ENT exam: Present: normal exam, normal oropharynx, mucous membranes moist Neck exam: Present: normal inspection, full ROM. Absent: tenderness, mening ismus, lymphadenopathy Respiratory exam: Present: respiratory distress (Mild), wheezes. Absent: normal lung sounds bilaterally, rales, rhonchi, stridor Cardiovascular Exam: Present: normal rhythm, tachycardia, normal heart sounds. Absent: systolic murmur, diastolic murmur, rubs, gallop, clicks Neurological exam: Present: alert, oriented X3, CN II-XII intact Skin exam: Present: warm, dry, intact, normal color. Absent: rash <Jake Clinotn - Last Filed: 03/02/19 10:04> Course <Kevin Roberts - Last Filed: 03/02/19 10:14> Vital Signs 03/02/19 03/02/19 03/02/19 08:16 08:36 09:07 Temperature 98.4 F Pulse Rate 111 H 108 H 103 H Respiratory 26 H Rate Blood Pressure 123/77 O2 Sat by Pulse 94 L Oximetry - Reevaluation(s) Reevaluation #1: 03/02/19 10:13 MIGUEL ÁNGEL supervision: The patient [id number] evaluation the patient she presents with complaints of 4 days of shortness of breath which got worse over last day or so she has been using her inhaler at home medication. Everyone 2 hours without much relief. She will be admitted for inpatient treatment of asthma exacerbation. I did discuss the case with Dr. Peterson (Kevin Roberts) Medical Decision Making - Lab Data Result diagrams: 03/02/19 08:30 03/02/19 08:30 <Jake Clinton - Last Filed: 03/02/19 10:04> - Lab Data Result diagrams: 03/02/19 08:30 03/02/19 08:30 <Kevin Roberts - Last Filed: 03/02/19 10:14> - Medical Decision Making 38-year-old female presented for shortness of breath. Patient had chest x-ray, labs, IV steroids, breathing treatments. Patient had minimal improvement. She still is short of breath, diffusely wheezy. Patient has been doing treatments more frequent than usual at home. She's had minimal improvement in emergency department and will be admitted for IV steroids, repeat treatment and further evaluation. (Jake Clinton) - Lab Data Lab Results 03/02/19 03/02/19 03/02/19 Range/Units 08:30 08:30 08:30 WBC 9.8 (3.8-10.6) k/uL RBC 5.11 (3.80-5.40) m/uL Hgb 11.3 L (11.4-16.0) gm/dL Hct 37.5 (34.0-46.0) % MCV 73.3 L (80.0-100.0) fL MCH 22.2 L (25.0-35.0) pg MCHC 30.3 L (31.0-37.0) g/dL RDW 15.3 (11.5-15.5) % Plt Count 364 (150-450) k/uL Neutrophils % 71 % Lymphocytes % 17 % Monocytes % 4 % Eosinophils % 6 % Basophils % 1 % Neutrophils # 7.0 (1.3-7.7) k/uL Lymphocytes # 1.7 (1.0-4.8) k/uL Monocytes # 0.4 (0-1.0) k/uL Eosinophils # 0.6 (0-0.7) k/uL Basophils # 0.1 (0-0.2) k/uL Hypochromasia Moderate Microcytosis Slight Sodium 137 (137-145) mmol/L Potassium 4.8 (3.5-5.1) mmol/L Chloride 105 (98-107) mmol/L Carbon Dioxide 21 L (22-30) mmol/L Anion Gap 11 mmol/L BUN 13 (7-17) mg/dL Creatinine 0.62 (0.52-1.04) mg/dL Est GFR (CKD-EPI)AfAm >90 (>60 ml/min/1.73 sqM) Est GFR (CKD-EPI)NonAf >90 (>60 ml/min/1.73 sqM) Glucose 286 H (74-99) mg/dL Plasma Lactic Acid Isaiah (0.7-2.0) mmol/L Calcium 8.8 (8.4-10.2) mg/dL Magnesium 1.8 (1.6-2.3) mg/dL Total Bilirubin 0.4 (0.2-1.3) mg/dL AST 23 (14-36) U/L ALT 30 (9-52) U/L Alkaline Phosphatase 81 (38-126) U/L Troponin I <0.012 (0.000-0.034) ng/mL Total Protein 6.7 (6.3-8.2) g/dL Albumin 4.3 (3.5-5.0) g/dL 03/02/19 Range/Units 08:30 WBC (3.8-10.6) k/uL RBC (3.80-5.40) m/uL Hgb (11.4-16.0) gm/dL Hct (34.0-46.0) % MCV (80.0-100.0) fL MCH (25.0-35.0) pg MCHC (31.0-37.0) g/dL RDW (11.5-15.5) % Plt Count (150-450) k/uL Neutrophils % % Lymphocytes % % Monocytes % % Eosinophils % % Basophils % % Neutrophils # (1.3-7.7) k/uL Lymphocytes # (1.0-4.8) k/uL Monocytes # (0-1.0) k/uL Eosinophils # (0-0.7) k/uL Basophils # (0-0.2) k/uL Hypochromasia Microcytosis Sodium (137-145) mmol/L Potassium (3.5-5.1) mmol/L Chloride (98-107) mmol/L Carbon Dioxide (22-30) mmol/L Anion Gap mmol/L BUN (7-17) mg/dL Creatinine (0.52-1.04) mg/dL Est GFR (CKD-EPI)AfAm (>60 ml/min/1.73 sqM) Est GFR (CKD-EPI)NonAf (>60 ml/min/1.73 sqM) Glucose (74-99) mg/dL Plasma Lactic Acid Isaiah 2.2 H* (0.7-2.0) mmol/L Calcium (8.4-10.2) mg/dL Magnesium (1.6-2.3) mg/dL Total Bilirubin (0.2-1.3) mg/dL AST (14-36) U/L ALT (9-52) U/L Alkaline Phosphatase (38-126) U/L Troponin I (0.000-0.034) ng/mL Total Protein (6.3-8.2) g/dL Albumin (3.5-5.0) g/dL Disposition <Jake Clinton - Last Filed: 03/02/19 10:04> <Kevin Roberts - Last Filed: 03/02/19 10:14> Clinical Impression: Acute asthma exacerbation, Failure of outpatient treatment Disposition: ADMITTED IP TO THIS HOSP Condition: Fair Referrals: Faith Segovia MD [Primary Care Provider] - 1-2 days
--- NOTE | 2019-03-02 09:39 | XR ---
EXAMINATION TYPE: XR chest 2V DATE OF EXAM: 03/02/2019 COMPARISON: Prior chest x-ray 12/14/2018 HISTORY: Difficulty breathing, shortness of breath TECHNIQUE: Frontal and lateral views of the chest are obtained. FINDINGS: There are overlying cardiac leads, artifacts. Patient is rotated. No evident airspace dise ase, pneumothorax, or pleural effusion. Cardiac mediastinal silhouette, pulmonary vascularity and hil a are stable. IMPRESSION: No acute cardiopulmonary process.
[2019-03-02 11:01] VITALS: BMI 47.0
[2019-03-02] MEDS ORDERED: INSULIN ASPART (NovoLOG) 100 UNIT/ML VIAL SQ SCH ×2 (12:30→17:30)
[2019-03-02 12:32] LABS: Glucose,Whole Blood 303 mg/dL (75-99)
[2019-03-02] MEDS: IPRATROPIUM-ALBUTEROL 3 ML NEB INHALATION SCH ×3 (13:06→21:40)
[2019-03-02] MEDS: methylPREDNISolone SOD SUCCI 125 MG/2 ML VIAL IV SCH ×3 (13:12→23:45)
[2019-03-02] MEDS ORDERED: traMADol 50 MG TAB PO PRN (15:27)
[2019-03-02] MEDS ORDERED: ACETAMINOPHEN TAB 325 MG TAB PO PRN (15:27)
[2019-03-02] MEDS ORDERED: NALOXONE 0.4 MG/ML 1 ML VIAL IV PRN (15:27)
--- NOTE | 2019-03-02 15:27 | P.HPIM ---
History of Present Illness H&P Date: 03/02/19 Chief Complaint: shortness of breath 38-year-old female with PMH of diabetes mellitus, seizure disorder, asthma presents to the ED for shortness of breath and wheezing. Patient reports symptoms started afternoon and progressively got worse at night. Patient reports that her triggers are changes in weather conditions. She does complain of a dry cough. Patient attempted using albuterol nebulized treatments every hour, which improved her symptoms minimally. When she was not getting better, this prompted her to come to the ED. Patient reports previous hospitalizations but never intubation. She denies any headaches, lower extremity edema, nausea, vomiting, fever, palpitations, changes in urination or bowel habits. No dizziness, numbness/weakness/tingling of the extremities. Patient reports a history of smoking, 1-1-1/2 packs per day, quit 5 years ago. Patient does report chest pain, only with cough. She reports palpitations when she feels short of breath. In the ED, CBC showed a hemoglobin of 11.3 with micro-cytosis.CMP showed a bicarbonate of 21, glucose of 286. Lactic acid was 2.2. Troponin was less than 0.012, EKG showing sinus tachycardia with low voltage QRS. Chest x-ray showing no acute process. Patient is admitted for asthma exacerbation. Review of Systems Pertinent positives and negatives as discussed in HPI, a complete review of systems was performed and all other systems are negative. Past Medical History Past Medical History: Asthma, Chest Pain / Angina, Diabetes Mellitus, GERD/Reflux, Hypertension, Musculoskeletal Disorder, Pneumonia, Seizure Disorder Additional Past Medical History / Comment(s): Bronchitis, NIDDM type II, seizure as a child with fever and possibly in 2013, migraines, chronic low back pain L4- L5, arrhythmia-pt does not know what type, sinus problems, seasonal allergies, UTI. History of Any Multi-Drug Resistant Organisms: MRSA Date of last positivie culture/infection: 05/11/18 MDRO Source:: BACK Past Surgical History: Cholecystectomy, Hernia Repair Additional Past Surgical History / Comment(s): 3 ABDOMINAL HERNIAS REPAIRED, colonoscopy. Past Anesthesia/Blood Transfusion Reactions: No Reported Reaction Smoking Status: Former smoker - Past Family History Father Family Medical History: Cancer Additional Family Medical History / Comment(s): FATHER OF THROAT CA Mother Family Medical History: Asthma, COPD Additional Family Medical History / Comment(s): MOTHER IS STILL LIVING. Medications and Allergies Home Medications Medication Instructions Recorded Confirmed Type lamoTRIgine [LaMICtal] 75 mg PO BID 09/12/17 03/02/19 History lamoTRIgine [LaMICtal] 200 mg PO BID 09/12/17 03/02/19 History traZODone HCL [Desyrel] 100 mg PO HS 12/14/18 03/02/19 History Desvenlafaxine Succinate [Pristiq] 200 mg PO DAILY 12/18/18 03/02/19 History Lisinopril 20 mg PO DAILY 12/18/18 03/02/19 History metFORMIN HCL [Glucophage] 500 mg PO BID 12/18/18 03/02/19 History Albuterol Inhaler [Ventolin Hfa 1 - 2 puff INHALATION RT-Q6H PRN 03/02/19 03/02/19 History Inhaler] Albuterol Nebulized [Ventolin 2.5 mg INHALATION RT-Q6H PRN 03/02/19 03/02/19 History Nebulized] Allergies Allergy/AdvReac Type Severity Reaction Status Date / Time egg yolk Allergy Anaphylaxis Verified 03/02/19 08:32 peanut Allergy Anaphylaxis Verified 03/02/19 08:32 influenza virus vaccine, AdvReac Unknown Verified 03/02/19 08:32 specific [Influenza Virus Vacc,Specific] Physical Exam Vitals: Vital Signs Temp Pulse Pulse Resp BP BP Pulse Ox 03/02/19 13:17 112 H 03/02/19 13:06 112 H 03/02/19 11:43 98.6 F 101 H 20 145/91 96 03/02/19 11:03 98.4 F 104 H 18 148/89 98 03/02/19 10:00 111 H 18 138/78 97 03/02/19 09:30 102 H 18 141/83 96 03/02/19 09:07 103 H 03/02/19 09:00 110 H 17 130/84 97 03/02/19 08:36 108 H 03/02/19 08:16 98.4 F 111 H 26 H 123/77 94 L Intake and Output 03/02/19 03/02/19 03/02/19 06:59 14:59 22:59 Other: # Voids 2 Weight 120.474 kg General: [non toxic], [no distress], [appears at stated age] Derm: [warm], [dry] Head: [atraumatic], [normocephalic], [symmetric] Eyes: [EOMI], [no lid lag], [anicteric sclera] Mouth: [no lip lesion], [mucus membranes moist] Cardiovascular: [S1S2 reg], [tachycardia], [positive DP pulse bilateral], Lungs: [diffuse wheezing bilateral], [no rhonchi, no rales] , [no accessory muscle use] Abdominal: [soft], [ nontender to palpation], [no guarding], [no appreciable organomegaly] Ext: [no gross muscle atrophy], [no edema], [no contractures] Neuro: [ CN II-XI grossly intact], [no focal neuro deficits] Psych: [Alert], [oriented], [appropriate affect] Results CBC & Chem 7: 03/02/19 08:30 03/02/19 08:30 Labs: Abnormal Lab Results - Last 24 Hours (Table) 03/02/19 03/02/19 03/02/19 Range/Units 08:30 08:30 08:30 Hgb 11.3 L (11.4-16.0) gm/dL MCV 73.3 L (80.0-100.0) fL MCH 22.2 L (25.0-35.0) pg MCHC 30.3 L (31.0-37.0) g/dL Carbon Dioxide 21 L (22-30) mmol/L Glucose 286 H (74-99) mg/dL POC Glucose (mg/dL) (75-99) mg/dL Plasma Lactic Acid Isaiah 2.2 H* (0.7-2.0) mmol/L 03/02/19 Range/Units 12:29 Hgb (11.4-16.0) gm/dL MCV (80.0-100.0) fL MCH (25.0-35.0) pg MCHC (31.0-37.0) g/dL Carbon Dioxide (22-30) mmol/L Glucose (74-99) mg/dL POC Glucose (mg/dL) 303 H (75-99) mg/dL Plasma Lactic Acid Isaiah (0.7-2.0) mmol/L Thrombosis Risk Factor Assmnt - Choose All That Apply Any of the Below Risk Factors Present?: Yes Each Factor Represents 1 point: Obesity (BMI >25) Other Risk Factors: No Other congenital or acquired thrombophilia - If yes, enter type in comment: No Thrombosis Risk Factor Assessment Total Risk Factor Score: 1 Thrombosis Risk Factor Assessment Level: Low Risk Assessment and Plan Assessment: Assessment and Plan Asthma exacerbation Chest pain Lactic acidosis Pre Diabetes mellitus with hyperglycemia Seizure disorder Triggered likely from changes in weather.patient afebrile with no leukocytosis and normal chest x-ray. Plan: DuoNeb and albuterol neb 4 times a day scheduled and as needed for shortness of breath and wheezing. Start Solu-Medrol. O2 per NC to maintain O2 saturation greater than 92%. Follow pulmonology consult. With cough, unlikely ACS. Troponin less than 0.012, EKG showing sinus tachycardia. Plan: Trend Trop/EKG to rule out ACS. Lactic acid 2.2-1.9. Likely secondary to dehydration. Plan: Encourage hydration by mouth. [id number] glucose 303. A1c 6.0 in May 2018. Plan: Insulin sliding scale. Regular Accu-Cheks. Hypoglycemic precautions. Diabetic diet. Plan: Continue Lamictal. Seizure precautions. DVT prophylaxis: [SCD boots] Discussed with: [patient] Anticipated discharge: [1-2 days] Anticipated discharge place: [home] A total of [45] minutes was spent on the care of this complex patient more than 50% of the time was spent in counseling and care coordination.
[2019-03-02] MEDS: HYDROcodone/APAP 5-325MG 1 EACH TAB PO PRN ×2 (16:02→20:05)
[2019-03-02 17:34] LABS: Glucose,Whole Blood 249 mg/dL (75-99)
[2019-03-02 20:28] LABS: Glucose,Whole Blood 299 mg/dL (75-99)
[2019-03-02] MEDS: lamoTRIgine 25 MG TAB PO SCH (20:55)
[2019-03-02] MEDS: lamoTRIgine 100 MG TAB PO SCH (20:55)
[2019-03-02] MEDS ORDERED: traZODone HCL 100 MG TAB PO SCH (21:00)
[2019-03-02] MEDS: INSULIN ASPART (NovoLOG) 100 UNIT/ML VIAL SQ SCH (21:04)
[2019-03-02] MEDS ORDERED: INSULIN ASPART (NovoLOG) 100 UNIT/ML VIAL SQ ONE (21:15)
[2019-03-03] MEDS: HYDROcodone/APAP 5-325MG 1 EACH TAB PO PRN ×4 (00:08→14:17)
[2019-03-03] MEDS: ALBUTEROL NEBULIZED 2.5 MG/3 ML INHALATION PRN ×2 (01:31→05:21)
[2019-03-03] MEDS: methylPREDNISolone SOD SUCCI 125 MG/2 ML VIAL IV SCH ×2 (05:40→12:11)
[2019-03-03 06:26] LABS: Glucose,Whole Blood 287 mg/dL (75-99)
[2019-03-03] MEDS ORDERED: INSULIN ASPART (NovoLOG) 100 UNIT/ML VIAL SQ ONE (07:00)
[2019-03-03 08:32] VITALS: RESP 20
[2019-03-03] MEDS ORDERED: LISINOPRIL 20 MG TAB PO SCH (09:00)
[2019-03-03] MEDS ORDERED: DESVENLAFAXINE SUCCINATE 50 MG TAB.ER.24H PO SCH (09:00)
[2019-03-03] MEDS: lamoTRIgine 25 MG TAB PO SCH (09:24)
[2019-03-03] MEDS: lamoTRIgine 100 MG TAB PO SCH (09:24)
[2019-03-03] MEDS: INSULIN ASPART (NovoLOG) 100 UNIT/ML VIAL SQ SCH ×3 (09:27→18:24)
[2019-03-03] MEDS: IPRATROPIUM-ALBUTEROL 3 ML NEB INHALATION SCH ×4 (09:35→19:02)
--- NOTE | 2019-03-03 10:58 | CONS ---
CONSULTATION This is a pulmonary critical care consultation. DATE OF SERVICE: March 03, 2019 This is a 38-year-old female that we were asked to see because of her asthma acting up. She has a longstanding history of asthma being diagnosed as a young child. The patient states that she has what she would refer to as mild or seasonal asthma. She only takes albuterol nebulizer machine and/or rescue inhaler p.r.n. She states that her asthma seems to be most severe in the wintertime because of cold air and also in the springtime because of tree, grass and weed pollen. She really has not had a flare up in a long period of time. Anyway, she presented to the emergency department with complaints of increasing shortness of breath. She tried using a rescue inhaler and her nebulizer machine, but that did not help. She does cough quite a bit. She is wheezing. She is not producing much or any phlegm. No fever or chills. No chest pain or chest discomfort. No nausea, vomiting or diarrhea. She was evaluated in the emergency room and admitted with a diagnosis of asthma exacerbation. Her current physician is Dr. Faith Segovia. She does not see a lung doctor at this time. MEDICATIONS: Her home medications include Lamictal, Desyrel, Pristiq, lisinopril, metformin, Ventolin updrafts, and Ventolin inhaler. ALLERGIES: Allergies include EGG YOLK, PEANUTS, INFLUENZA VACCINE. MEDICAL HISTORY: Her medical history includes chronic bronchial asthma, diabetes mellitus, gastroesophageal reflux disease, seizure disorder and chronic back pain. She also has a previous history of MRSA infection. SURGICAL HISTORY: Surgical history includes hernia repair and cholecystectomy. SOCIAL HISTORY: Social history is positive for ongoing tobacco use with nicotine addiction. She denies any alcohol use or illicit drug use. FAMILY HISTORY: Family history is positive for throat cancer and COPD. REVIEW OF SYSTEMS: CONSTITUTIONAL: Negative. NEUROLOGIC: Negative. HEENT: Negative. CARDIOVASCULAR: Negative. PULMONARY: Shortness of breath, chest tightness, wheezing and cough. GI: Negative. : Negative. RHEUMATOLOGIC: Negative. IMMUNOLOGIC: Negative. ENDOCRINOLOGIC: Negative. DERMATOLOGIC: Negative. PHYSICAL EXAMINATION: Current vital signs are reviewed, include a temperature 98, heart rate 100, respiratory rate 20, blood pressure 120/79, mean 92, room air saturation 94%, 2.5 L saturation 97%. Appears in no acute distress. HEENT: Examination is grossly unremarkable. Mucous membranes are moist. No oral lesions. Nasal O2 noted. NECK: Supple. Full range of motion. No adenopathy or thyromegaly. Neck veins are flat. CARDIOVASCULAR: Examination reveals regular rhythm and rate. S1, S2 normal. Heart rate about 100. No murmur. LUNGS: Reveal some expiratory wheezes and rhonchi. There is prolongation on forced maneuver. She coughs and wheezes on forced maneuver. ABDOMEN: Soft, but obese. Bowel sounds are heard. EXTREMITIES: Are intact. No cyanosis, clubbing, or edema. SKIN: Without rash. NEUROLOGIC: Examination is brief but nonfocal. Lab data is reviewed. On admission, white count 9.8, hemoglobin 11.3, hematocrit 37.5, platelet count 364,000. Sodium, potassium and chloride normal. CO2 is 21, BUN and creatinine were 13 and 0.62. The rest of the labs look okay. The chest x-ray showing no acute cardiopulmonary disease. Microbiology is negative or pending. Orders are reviewed. She is currently getting albuterol and Atrovent updrafts q.i.d. and p.r.n. She is also getting Solu-Medrol 60 mg q.6. We will go ahead and put her on some Pulmicort and Perforomist breathing treatments. The rest of her medications appear to be appropriate. ASSESSMENT: 1. Asthma exacerbation, triggered by possible weather changes and/or environmental allergens such as tree, grass or weed pollen. 2. History of seizure disorder. 3. History of diabetes. 4. History of gastroesophageal reflux disease. 5. History of chronic back pain. 6. Previous history of methicillin-resistant Staphylococcus aureus infection. PLAN: The patient's medications are reviewed. Everything appears to be appropriate. We will add some Pulmicort and formoterol to her regimen. Likely discharge in 24 to 48 hours. I may also add a short course of antibiotics. No additional recommendations are made. We will continue to follow. Prognosis is guarded. MMODL / IJN: [id number] /
[2019-03-03 12:03] LABS: Glucose,Whole Blood 353 mg/dL (75-99)
[2019-03-03 12:18] VITALS: TEMP 98.3
[2019-03-03 12:47] LABS: Hemoglobin A1C 8.1 % (4.0-6.0)
[2019-03-03] MEDS ORDERED: INSULIN ASPART (NovoLOG) 100 UNIT/ML VIAL SQ SCH (17:30)
--- NOTE | 2019-03-03 17:44 | P.DS ---
Providers Date of admission: 03/02/19 10:14 Expected date of discharge: 03/03/19 Attending physician: Susanne Malik DO Consults: 03/02/19 15:22 Consult Physician Routine Consulting Provider: Kevin Dominique Reason/Comments: Asthma exacerbation Do you want consulting provider notified?: Yes Primary care physician: Faith Segovia MD Hospital Course: 38-year-old female with PMH of diabetes mellitus, seizure disorder, asthma presents to the ED for shortness of breath and wheezing. Patient reports symptoms started afternoon and progressively got worse at night. Patient reports that her triggers are changes in weather conditions. She does complain of a dry cough. Patient attempted using albuterol nebulized treatments every hour, which improved her symptoms minimally. When she was not getting better, this prompted her to come to the ED. Patient reports previous hospitalizations but never intubation. She denies any headaches, lower extremity edema, nausea, vomiting, fever, palpitations, changes in urination or bowel habits. No dizziness, numbness/weakness/tingling of the extremities. Patient reports a history of smoking, 1-1-1/2 packs per day, quit 5 years ago. Patient does report chest pain, only with cough. She reports palpitations when she feels short of breath. In the ED, CBC showed a hemoglobin of 11.3 with micro-cytosis.CMP showed a b icarbonate of 21, glucose of 286. Lactic acid was 2.2. Troponin was less than 0.012, EKG showing sinus tachycardia with low voltage QRS. Chest x-ray showing no acute process. Patient is admitted for asthma exacerbation. Her asthma exacerbation was likely triggered from changes in weather. Patient was afebrile with no leukocytosis. Chest x-ray was within normal limits. Patient was started on DuoNeb and albuterol neb 4 times a day scheduled and as stated for shortness of breath and wheezing. She was started on Solu-Medrol that was transitioned to prednisone by mouth on discharge. Pulmonology was consulted who recommended outpatient follow-up. Troponin was less than 0.0122 with EKG showing sinus tachycardia. Acute coronary syndrome was ruled out. Patient initially had a lactic acid of 2.2 which trended down to 1.9 at the time of discharge. This was thought to be secondary to dehydration. Patient was given insulin on a sliding scale for steroid-induced hyperglycemia. Patient was seen and examined prior to discharge. No acute events overnight. Walk in the hallways without any difficulties. She denies any shortness of breath, chest pain, palpitations. Looking for to going home. General: [non toxic], [no distress], [appears at stated age] Derm: [warm], [dry] Head: [atraumatic], [normocephalic], [symmetric] Eyes: [EOMI], [no lid lag], [anicteric sclera] Mouth: [no lip lesion], [mucus membranes moist] Cardiovascular: [S1S2 reg], [tachycardia], [positive DP pulse bilateral], Lungs: [Clear to auscultation bilaterally], [no rhonchi, no rales] , [no accessory muscle use] Abdominal: [soft], [ nontender to palpation], [no guarding], [no appreciable organomegaly] Ext: [no gross muscle atrophy], [no edema], [no contractures] Neuro: [ CN II-XI grossly intact], [no focal neuro deficits] Psych: [Alert], [oriented], [appropriate affect] Assessment and Plan Asthma exacerbation Chest pain Lactic acidosis Steroid-induced hyperglycemia with prediabetes Seizure disorder Triggered likely from changes in weather. Patient afebrile with no leukocytosis and normal chest x-ray. Plan: DuoNeb and albuterol neb 4 times a day scheduled and as needed for shortness of breath and wheezing. Transition Solu-Medrol to prednisone on discharge. O2 per NC to maintain O2 saturation greater than 92%. Follow pulmonology consult. With cough, unlikely ACS. Troponin less than 0.012 2, EKG showing sinus tachycardia. Plan: Trend Trop/EKG to rule out ACS. Lactic acid 2.2-1.9. Likely secondary to dehydration. Plan: Encourage hydration by mouth. [id number] glucose 353. A1c 6.0 in May 2018. Plan: Insulin sliding scale. Regular Accu-Cheks. Hypoglycemic precautions. Diabetic diet. Plan: Continue Lamictal. Seizure precautions. Patient doing better. Lungs are clear to auscultation. Wanting to go home. Will DC home today. Has asthma medications at home. Pertinent Studies: Chest x-ray Patient Condition at Discharge: Stable Plan - Discharge Summary Discharge Rx Participant: No New Discharge Prescriptions: New Fluticasone/Salmeterol [Advair 500-50 Diskus] 1 each IH BID #1 blst.w.dev predniSONE 40 mg PO DAILY #8 tab Albuterol Nebulized [Ventolin Nebulized] 2.5 mg INHALATION RT-Q2H PRN nebu PRN Reason: shortness of breath Azithromycin [Zithromax] 500 mg PO DAILY #3 tab Continue lamoTRIgine [LaMICtal] 200 mg PO BID lamoTRIgine [LaMICtal] 75 mg PO BID traZODone HCL [Desyrel] 100 mg PO HS metFORMIN HCL [Glucophage] 500 mg PO BID Lisinopril 20 mg PO DAILY Desvenlafaxine Succinate [Pristiq] 200 mg PO DAILY Albuterol Nebulized [Ventolin Nebulized] 2.5 mg INHALATION RT-Q6H PRN PRN Reason: Shortness Of Breath Albuterol Inhaler [Ventolin Hfa Inhaler] 1 - 2 puff INHALATION RT-Q6H PRN PRN Reason: Shortness Of Breath Discharge Medication List lamoTRIgine [LaMICtal] 75 mg PO BID 09/12/17 [History] lamoTRIgine [LaMICtal] 200 mg PO BID 09/12/17 [History] traZODone HCL [Desyrel] 100 mg PO HS 12/14/18 [History] Desvenlafaxine Succinate [Pristiq] 200 mg PO DAILY 12/18/18 [History] Lisinopril 20 mg PO DAILY 12/18/18 [History] metFORMIN HCL [Glucophage] 500 mg PO BID 12/18/18 [History] Albuterol Inhaler [Ventolin Hfa Inhaler] 1 - 2 puff INHALATION RT-Q6H PRN 03/02/19 [History] Albuterol Nebulized [Ventolin Nebulized] 2.5 mg INHALATION RT-Q6H PRN 03/02/19 [History] Albuterol Nebulized [Ventolin Nebulized] 2.5 mg INHALATION RT-Q2H PRN nebu 03/03/19 [Rx] Azithromycin [Zithromax] 500 mg PO DAILY #3 tab 03/03/19 [Rx] Fluticasone/Salmeterol [Advair 500-50 Diskus] 1 each IH BID #1 blst.w.dev 03/03/19 [Rx] predniSONE 40 mg PO DAILY #8 tab 03/03/19 [Rx] Follow up Appointment(s)/Referral(s): Faith Segovia MD [Primary Care Provider] - 1-2 days Kevin Dominique DO [Doctor of Osteopathic Medicine] - 1 Week Activity/Diet/Wound Care/Special Instructions: Diet: Diabetic Follow-up with PCP within 1-2 days of discharge. Follow-up with pulmonology with the appointment given to you. Take all medications as advised. Discharge Disposition: HOME SELF-CARE
[2019-03-03 18:22] LABS: Glucose,Whole Blood 321 mg/dL (75-99)
[2019-03-03 19:22] VITALS: BP 129/72; PULSE 94
[2019-03-03] MEDS ORDERED: BUDESONIDE 1 MG/2 ML NEBU INHALATION SCH (20:00)
[2019-03-03] MEDS ORDERED: FORMOTEROL FUMARATE 20 MCG/2 ML NEBU INHALATION SCH (20:00)
[2019-03-04] MEDS ORDERED: AZITHROMYCIN 500 MG TAB PO SCH (09:00)
== END 2019-03-03 19:23 | disposition home or self-care (01) ==
LOC: EC 08:08 → INTOOBSV 10:14 → 6PED 10:14 → OBSVTOIN 10:14 → UNDODISOB 03-03 19:23
PROVIDERS: ADMIT Internal Medicine; ATTEND Internal Medicine
DX: J45.901 Unspecified asthma with (acute) exacerbation (principal); E87.2 Acidosis; E11.65 Type 2 diabetes mellitus with hyperglycemia; T38.0X5A Adverse effect of glucocorticoids and synthetic analogues, initial encounter; E86.0 Dehydration; Z87.891 Personal history of nicotine dependence; G40.909 Epilepsy, unspecified, not intractable, without status epilepticus; I10 Essential (primary) hypertension; F32.9 Major depressive disorder, single episode, unspecified; R09.81 Nasal congestion; K21.9 Gastro-esophageal reflux disease without esophagitis; R07.9 Chest pain, unspecified; E66.9 Obesity, unspecified; Z68.42 Body mass index [BMI] 45.0-49.9, adult; G89.29 Other chronic pain; M54.5 Low back pain; Z79.84 Long term (current) use of oral hypoglycemic drugs; Z79.899 Other long term (current) drug therapy; Z86.14 Personal history of Methicillin resistant Staphylococcus aureus infection; Z87.01 Personal history of pneumonia (recurrent); Z87.440 Personal history of urinary (tract) infections; Z90.49 Acquired absence of other specified parts of digestive tract; Z88.7 Allergy status to serum and vaccine; Z91.012 Allergy to eggs; Z91.010 Allergy to peanuts; Z80.8 Family history of malignant neoplasm of other organs or systems; Z82.5 Family history of asthma and other chronic lower respiratory diseases
CPT/HCPCS: 96376 ×2; 96374; 99285; 36415; 94640 ×4; 94760; 93005; 80053; 83605; 83735; 84484; 85025; 87040; 83036; 71046; G0378 ×2; J2930 ×2

== ENCOUNTER 2019-04-29 13:17 | Emergency (ER) | payer OTHER ==
[2019-04-29] MEDS ORDERED: SODIUM CHLORIDE 0.9% 500 ML 500 ML IV STA (13:20)
[2019-04-29 13:25] VITALS: TEMP 98.4
--- NOTE | 2019-04-29 14:00 | ED ---
Seizure HPI - General Chief Complaint: Seizure Stated Complaint: Seizure Time Seen by Provider: 04/29/19 13:20 Source: patient, EMS, RN notes reviewed Mode of arrival: EMS Limitations: no limitations - History of Present Illness Initial Comments: This a 38-year-old female presents emergency Department chief complaint of seizure. Patient reportedly had a witnessed seizure at home EMS called by family. Patient does have a history of seizures states that she takes Lamictal. Patient denies missing any doses that she can remember. Patient does see a current neurologist. She denies blurred vision, focal weakness, nausea, vomiting, chest pain, shortness breath, injury. Patient states that she feels like her normal self at this time. - Related Data Home Medications Medication Instructions Recorded Confirmed lamoTRIgine [LaMICtal] 75 mg PO BID 09/12/17 03/02/19 lamoTRIgine [LaMICtal] 200 mg PO BID 09/12/17 03/02/19 traZODone HCL [Desyrel] 100 mg PO HS 12/14/18 03/02/19 Desvenlafaxine Succinate [Pristiq] 200 mg PO DAILY 12/18/18 03/02/19 Lisinopril 20 mg PO DAILY 12/18/18 03/02/19 metFORMIN HCL [Glucophage] 500 mg PO BID 12/18/18 03/02/19 Albuterol Inhaler [Ventolin Hfa 1 - 2 puff INHALATION RT-Q6H PRN 03/02/19 03/02/19 Inhaler] Previous Rx's Medication Instructions Recorded Albuterol Nebulized [Ventolin 2.5 mg INHALATION RT-Q2H PRN nebu 03/03/19 Nebulized] Albuterol Nebulized [Ventolin 2.5 mg INHALATION RT-Q6H PRN #90 03/03/19 Nebulized] nebu Azithromycin [Zithromax] 500 mg PO DAILY #3 tab 03/03/19 Fluticasone/Salmeterol [Advair 1 each IH BID #1 blst.w.dev 03/03/19 500-50 Diskus] predniSONE 40 mg PO DAILY #8 tab 03/03/19 Allergies Allergy/AdvReac Type Severity Reaction Status Date / Time egg yolk Allergy Anaphylaxis Verified 03/02/19 08:32 peanut Allergy Anaphylaxis Verified 03/02/19 08:32 influenza virus vaccine, AdvReac Unknown Verified 03/02/19 08:32 specific [Influenza Virus Vacc,Specific] Review of Systems ROS Statement: Those systems with pertinent positive or pertinent negative responses have been documented in the HPI. ROS Other: All systems not noted in ROS Statement are negative. Past Medical History Past Medical History: Asthma, Chest Pain / Angina, Diabetes Mellitus, GERD/Reflux, Hypertension, Musculoskeletal Disorder, Pneumonia, Seizure Disorder Additional Past Medical History / Comment(s): Bronchitis, NIDDM type II, seizure as a child with fever and possibly in 2013, migraines, chronic low back pain L4- L5, arrhythmia-pt does not know what type, sinus problems, seasonal allergies, UTI. History of Any Multi-Drug Resistant Organisms: MRSA Date of last positivie culture/infection: 05/11/18 MDRO Source:: BACK Past Surgical History: Cholecystectomy, Hernia Repair Additional Past Surgical History / Comment(s): 3 ABDOMINAL HERNIAS REPAIRED, colonoscopy. Past Anesthesia/Blood Transfusion Reactions: No Reported Reaction Past Psychological History: Anxiety, Depression Smoking Status: Current every day smoker Past Alcohol Use History: None Reported Past Drug Use History: None Reported - Past Family History Father Family Medical History: Cancer Additional Family Medical History / Comment(s): FATHER OF THROAT CA Mother Family Medical History: Asthma, COPD Additional Family Medical History / Comment(s): MOTHER IS STILL LIVING. General Exam Limitations: no limitations General appearance: alert, in no apparent distress Head exam: Present: atraumatic, normocephalic, normal inspection Eye exam: Present: normal appearance, PERRL, EOMI. Absent: scleral icterus, conjunctival injection, periorbital swelling ENT exam: Present: normal exam, normal oropharynx, mucous membranes moist Neck exam: Present: normal inspection, full ROM. Absent: tenderness, meningismus, lymphadenopathy Respiratory exam: Present: normal lung sounds bilaterally. Absent: respiratory distress, wheezes, rales, rhonchi, stridor Cardiovascular Exam: Present: regular rate, normal rhythm, normal heart sounds. Absent: systolic murmur, diastolic murmur, rubs, gallop, clicks Extremities exam: Present: normal inspection, full ROM, normal capillary refill. Absent: tenderness, pedal edema, joint swelling, calf tenderness Neurological exam: Present: alert, oriented X3, CN II-XII intact, reflexes normal. Absent: motor sensory deficit Skin exam: Present: warm, dry, intact, normal color. Absent: rash Course Vital Signs 04/29/19 04/29/19 13:20 14:35 Temperature 98.4 F Pulse Rate 108 H 99 Respiratory 18 17 Rate Blood Pressure 120/84 108/59 O2 Sat by Pulse 100 99 Oximetry Medical Decision Making - Medical Decision Making 38-year-old female presented for seizure. Patient had a breakthrough seizure. Family did update the regarding that the patient has not had her Lamictal that she is waiting for insurance approval. Patient is stable at this time. Patient will be discharged return parameters were discussed. - Lab Data Result diagrams: 04/29/19 13:38 04/29/19 13:38 Lab Results 04/29/19 04/29/19 Range/Units 13:38 13:38 WBC 11.5 H (3.8-10.6) k/uL RBC 4.88 (3.80-5.40) m/uL Hgb 10.3 L (11.4-16.0) gm/dL Hct 33.9 L (34.0-46.0) % MCV 69.5 L (80.0-100.0) fL MCH 21.0 L (25.0-35.0) pg MCHC 30.3 L (31.0-37.0) g/dL RDW 15.2 (11.5-15.5) % Plt Count 352 (150-450) k/uL Neutrophils % 75 % Lymphocytes % 14 % Monocytes % 5 % Eosinophils % 5 % Basophils % 1 % Neutrophils # 8.6 H (1.3-7.7) k/uL Lymphocytes # 1.6 (1.0-4.8) k/uL Monocytes # 0.6 (0-1.0) k/uL Eosinophils # 0.5 (0-0.7) k/uL Basophils # 0.1 (0-0.2) k/uL Hypochromasia Marked Poikilocytosis Slight Microcytosis Moderate Sodium 138 (137-145) mmol/L Potassium 4.5 (3.5-5.1) mmol/L Chloride 107 (98-107) mmol/L Carbon Dioxide 20 L (22-30) mmol/L Anion Gap 11 mmol/L BUN 13 (7-17) mg/dL Creatinine 0.50 L (0.52-1.04) mg/dL Est GFR (CKD-EPI)AfAm >90 (>60 ml/min/1.73 sqM) Est GFR (CKD-EPI)NonAf >90 (>60 ml/min/1.73 sqM) Glucose 161 H (74-99) mg/dL Calcium 9.1 (8.4-10.2) mg/dL Total Bilirubin 0.3 (0.2-1.3) mg/dL AST 19 (14-36) U/L ALT 25 (9-52) U/L Alkaline Phosphatase 76 (38-126) U/L Total Protein 6.6 (6.3-8.2) g/dL Albumin 4.2 (3.5-5.0) g/dL Disposition Clinical Impression: Generalized seizure Disposition: HOME SELF-CARE Condition: Stable Instructions (If sedation given, give patient instructions): Recurrent Seizures in Adults (ED) Additional Instructions: Please return to the Emergency Department if symptoms worsen or any other concerns. Is patient prescribed a controlled substance at d/c from ED?: No Referrals: Faith Segovia MD [Primary Care Provider] - 1-2 days Time of Disposition: 15:07
[2019-04-29 14:02] LABS: Basophils # (A) 0.1 k/uL (0-0.2); Basophils % (A) 1 %; Eosinophils # (A) 0.5 k/uL (0-0.7); Eosinophils % (A) 5 %; HCT 33.9 % (34.0-46.0); HGB 10.3 gm/dL (11.4-16.0); Hypochromasia Marked; Lymphocytes # (A) 1.6 k/uL (1.0-4.8); Lymphocytes % (A) 14 %; MCHC 30.3 g/dL (31.0-37.0); MCV 69.5 fL (80.0-100.0); Mean Platelet Volume 6.6; Microcytosis Moderate; Monocytes # (A) 0.6 k/uL (0-1.0); Monocytes % (A) 5 %; Neutrophils # (A) 8.6 k/uL (1.3-7.7); Neutrophils % (A) 75 %; Platelet Count 352 k/uL (150-450); Poikilocytosis Slight; RBC 4.88 m/uL (3.80-5.40); RDW 15.2 % (11.5-15.5); WBC 11.5 k/uL (3.8-10.6)
[2019-04-29 14:06] LABS: ALT 25 U/L (9-52); AST 19 U/L (14-36); African American GFR (CKD) >90 (>60 ml/min/1.73 sqM); Albumin 4.2 g/dL (3.5-5.0); Alkaline Phosphatase 76 U/L (38-126); Anion Gap 11 mmol/L; Blood Urea Nitrogen 13 mg/dL (7-17); Calcium 9.1 mg/dL (8.4-10.2); Carbon Dioxide 20 mmol/L (22-30); Chloride 107 mmol/L (98-107); Glucose 161 mg/dL (74-99); Potassium 4.5 mmol/L (3.5-5.1); Sodium 138 mmol/L (137-145); Total Bilirubin 0.3 mg/dL (0.2-1.3); Total Protein 6.6 g/dL (6.3-8.2)
[2019-04-29] MEDS ORDERED: lamoTRIgine 100 MG TAB PO STA (14:08)
[2019-04-29] MEDS ORDERED: KETOROLAC 30 MG/ML 1 ML VIAL IVP STA (14:31)
[2019-04-29 14:37] VITALS: BP 108/59; PULSE 99; RESP 17
== END 2019-04-29 15:20 | disposition home or self-care (01) ==
LOC: EC 13:17
DX: G40.409 Other generalized epilepsy and epileptic syndromes, not intractable, without status epilepticus (principal); E11.9 Type 2 diabetes mellitus without complications; I10 Essential (primary) hypertension; F41.9 Anxiety disorder, unspecified; F32.9 Major depressive disorder, single episode, unspecified; F17.200 Nicotine dependence, unspecified, uncomplicated
CPT/HCPCS: 36415; 80053; 80175; 85025; 99284; 96374; 96361; J1885

== ENCOUNTER 2019-06-03 13:17 | Observation (INO) | payer OTHER ==
[2019-06-03] MEDS ORDERED: SODIUM CHLORIDE 0.9% 1,000 ML IV STA ×2 (14:13→15:19)
[2019-06-03] MEDS ORDERED: ONDANSETRON 4 MG/2 ML VIAL IVP STA ×2 (14:13→17:01)
--- NOTE | 2019-06-03 14:27 | ED ---
Abdominal Pain HPI <Shorty Henderson - Last Filed: 06/03/19 17:33> - General Source: patient Mode of arrival: ambulatory Limitations: no limitations <Faith Aden - Last Filed: 06/03/19 19:51> - General Chief Complaint: Abdominal Pain Stated Complaint: Dehydration,diarrhea Time Seen by Provider: 06/03/19 13:57 - History of Present Illness Initial Comments: Patient is a 38-year-old female presenting to the emergency Department with complaints of diarrhea 9 days. Patient states she has had occasional nausea and vomiting as well. Admits to generalized abdominal discomfort. Patient states her daughter had some diarrhea approximately a week and a half ago but hers has since cleared up. Patient denies any recent travel, recent antibiotic use. Patient admits to history of cholecystectomy and hernia repair. Patient denies fever, chills. Patient has past medical history of asthma, diabetes type 2, GERD, hypertension, seizure disorder. No other complaints at this time. Upon arrival, vital signs are stable, afebrile. (Faith Aden) - Related Data Home Medications Medication Instructions Recorded Confirmed lamoTRIgine [LaMICtal] 75 mg PO BID 09/12/17 06/03/19 traZODone HCL [Desyrel] 100 mg PO HS 12/14/18 06/03/19 metFORMIN HCL [Glucophage] 1,000 mg PO BID 12/18/18 06/03/19 Albuterol Inhaler [Ventolin Hfa 1 - 2 puff INHALATION RT-Q6H PRN 03/02/19 06/03/19 Inhaler] Ferrous Sulfate [Feosol] 325 mg PO DAILY 06/03/19 06/03/19 Folic Acid 1 mg PO DAILY 06/03/19 06/03/19 Allergies Allergy/AdvReac Type Severity Reaction Status Date / Time egg yolk Allergy Anaphylaxis Verified 06/03/19 13:48 peanut Allergy Anaphylaxis Verified 06/03/19 13:48 influenza virus vaccine, AdvReac Unknown Verified 06/03/19 13:48 specific [Influenza Virus Vacc,Specific] Review of Systems ROS Other: All systems not noted in ROS Statement are negative. <Shorty Henderson - Last Filed: 06/03/19 17:33> ROS Other: All systems not noted in ROS Statement are negative. <Faith Aden - Last Filed: 06/03/19 19:51> ROS Statement: Those systems with pertinent positive or pertinent negative responses have been documented in the HPI. Past Medical History Past Medical History: Asthma, Chest Pain / Angina, Diabetes Mellitus, GERD/Reflux, Hypertension, Musculoskeletal Disorder, Pneumonia, Seizure Disorder Additional Past Medical History / Comment(s): Bronchitis, NIDDM type II, seizure as a child with fever and possibly in 2014, migraines, chronic low back pain L4- L5, arrhythmia-pt does not know what type, sinus problems, seasonal allergies, UTI. History of Any Multi-Drug Resistant Organisms: MRSA Date of last positivie culture/infection: 05/11/18 MDRO Source:: BACK Past Surgical History: Cholecystectomy, Hernia Repair Additional Past Surgical History / Comment(s): 3 ABDOMINAL HERNIAS REPAIRED, colonoscopy. Past Anesthesia/Blood Transfusion Reactions: No Reported Reaction Past Psychological History: Anxiety, Depression Smoking Status: Current every day smoker Past Alcohol Use History: None Reported Past Drug Use History: None Reported - Past Family History Father Family Medical History: Cancer Additional Family Medical History / Comment(s): FATHER OF THROAT CA Mother Family Medical History: Asthma, COPD Additional Family Medical History / Comment(s): MOTHER IS STILL LIVING. <Faith Aden L - Last Filed: 06/03/19 19:51> General Exam Limitations: no limitations External exam: Present: normal external exam Speculum exam: Present: normal speculum exam By manual exam: Present: cervical motion tenderness, adnexal tenderness <Faith Aden L - Last Filed: 06/03/19 19:51> - General Exam Comments Initial Comments: GENERAL: Well-appearing, well-nourished and in no acute distress, but appears uncomfortable. HEAD: Atraumatic, normocephalic. EYES: Pupils equal round and reactive to light, extraocular movements intact, sclera anicteric, conjunctiva are normal. ENT: TMs normal, nares patent, oropharynx clear without exudates. Moist mucous membranes. NECK: Normal range of motion, supple without lymphadenopathy or JVD. LUNGS: Breath sounds clear to auscultation bilaterally and equal. No wheezes rales or rhonchi. HEART: Regular rate and rhythm without murmurs, rubs or gallops. ABDOMEN: Generalized abdominal discomfort with palpation. Soft, normoactive bowel sounds. No guarding, no rebound. No masses appreciated. EXTREMITIES: Normal range of motion, no pitting or edema. No clubbing or cyanosis. NEUROLOGICAL: Cranial nerves II through XII grossly intact. Normal speech, normal gait. PSYCH: Normal mood, normal affect. SKIN: Warm, Dry, normal turgor, no rashes or lesions noted. (Faith Aden) Course Vital Signs 06/03/19 06/03/19 06/03/19 13:23 15:51 18:13 Temperature 98 F 97.8 F Pulse Rate 104 H 97 94 Respiratory 18 18 18 Rate Blood Pressure 121/79 112/55 113/67 O2 Sat by Pulse 95 98 95 Oximetry Medical Decision Making - Lab Data Result diagrams: 06/03/19 14:20 06/03/19 14:20 <Shorty Henderson - Last Filed: 06/03/19 17:33> - Lab Data Result diagrams: 06/03/19 14:20 06/03/19 14:20 <Faith Aden - Last Filed: 06/03/19 19:51> - Medical Decision Making Case was discussed with practitioner Desiree. Chart and results reviewed. Case was also discussed with Dr. sargent, who will come evaluate patient. She does request pelvic ultrasound. (Shorty Henderson) Patient is a 38-year-old female complaining of diarrhea 9 days. Patient also admits to nausea, intermittent vomiting, and generalized abdominal pain. Upon arrival, vital signs are stable, afebrile. On exam, patient has generalized abdominal tenderness described as pressure, sharp. CBC shows 12.1 white count, slight anemia. CMP shows glucose of 140, lactic acid is 2.9. Amylase is 276, lipase almost 1600. UA is within normal limits. CT of the abdomen was ordered and shows mild fat stranding in the right colon which could indicate colitis/gastroenteritis. There is also diffuse enlargement of the uterus which is significantly increased in size when compared to CT in 2015. They recommend further evaluation with pelvic ultrasound. Patient was given fluids, Zofran, pain medication with some improvement in symptoms. Case discussed with Dr. Henderson. Pelvic exam was performed and patient had increased pain with manual exam. Ultrasound of the pelvis was ordered. Dr. Sargent did come and see the patient and patient will be admitted. Patient is agreeable with this plan. (Keiko,Faith L) - Lab Data Lab Results 06/03/19 06/03/19 06/03/19 Range/Units 14:20 14:20 14:20 WBC 12.3 H (3.8-10.6) k/uL RBC 4.99 (3.80-5.40) m/uL Hgb 10.2 L (11.4-16.0) gm/dL Hct 33.4 L (34.0-46.0) % MCV 66.9 L (80.0-100.0) fL MCH 20.4 L (25.0-35.0) pg MCHC 30.5 L (31.0-37.0) g/dL RDW 16.6 H (11.5-15.5) % Plt Count 463 H (150-450) k/uL Neutrophils % 73 % Lymphocytes % 15 % Monocytes % 6 % Eosinophils % 4 % Basophils % 1 % Neutrophils # 9.0 H (1.3-7.7) k/uL Lymphocytes # 1.9 (1.0-4.8) k/uL Monocytes # 0.7 (0-1.0) k/uL Eosinophils # 0.5 (0-0.7) k/uL Basophils # 0.1 (0-0.2) k/uL Hypochromasia Marked Poikilocytosis Slight Anisocytosis Slight Microcytosis Marked Sodium 138 (137-145) mmol/L Potassium 4.1 (3.5-5.1) mmol/L Chloride 105 (98-107) mmol/L Carbon Dioxide 23 (22-30) mmol/L Anion Gap 10 mmol/L BUN 12 (7-17) mg/dL Creatinine 0.52 (0.52-1.04) mg/dL Est GFR (CKD-EPI)AfAm >90 (>60 ml/min/1.73 sqM) Est GFR (CKD-EPI)NonAf >90 (>60 ml/min/1.73 sqM) Glucose 140 H (74-99) mg/dL Lactic Ac Sepsis Rflx Plasma Lactic Acid Isaiah 2.9 H* (0.7-2.0) mmol/L Calcium 9.3 (8.4-10.2) mg/dL Total Bilirubin 0.2 (0.2-1.3) mg/dL AST 30 (14-36) U/L ALT 39 (9-52) U/L Alkaline Phosphatase 68 (38-126) U/L Total Protein 6.6 (6.3-8.2) g/dL Albumin 4.0 (3.5-5.0) g/dL Amylase 276 H (30-110) U/L Lipase 1591 H (23-300) U/L Urine Color Urine Appearance (Clear) Urine pH (5.0-8.0) Ur Specific [place] (1.001-1.035) Urine Protein (Negative) Urine Glucose (UA) (Negative) Urine Ketones (Negative) Urine Blood (Negative) Urine Nitrite (Negative) Urine Bilirubin (Negative) Urine Urobilinogen (<2.0) mg/dL Ur Leukocyte Esterase (Negative) Urine RBC (0-5) /hpf Urine WBC (0-5) /hpf Ur Squamous Epith Cells (0-4) /hpf Urine Bacteria (None) /hpf Urine Mucus (None) /hpf Urine HCG, Qual (Not Detectd) Trichomonas Ag (Rapid) (Negative) 06/03/19 06/03/19 06/03/19 Range/Units 14:50 14:50 15:16 WBC (3.8-10.6) k/uL RBC (3.80-5.40) m/uL Hgb (11.4-16.0) gm/dL Hct (34.0-46.0) % MCV (80.0-100.0) fL MCH (25.0-35.0) pg MCHC (31.0-37.0) g/dL RDW (11.5-15.5) % Plt Count (150-450) k/uL Neutrophils % % Lymphocytes % % Monocytes % % Eosinophils % % Basophils % % Neutrophils # (1.3-7.7) k/uL Lymphocytes # (1.0-4.8) k/uL Monocytes # (0-1.0) k/uL Eosinophils # (0-0.7) k/uL Basophils # (0-0.2) k/uL Hypochromasia Poikilocytosis Anisocytosis Microcytosis Sodium (137-145) mmol/L Potassium (3.5-5.1) mmol/L Chloride (98-107) mmol/L Carbon Dioxide (22-30) mmol/L Anion Gap mmol/L BUN (7-17) mg/dL Creatinine (0.52-1.04) mg/dL Est GFR (CKD-EPI)AfAm (>60 ml/min/1.73 sqM) Est GFR (CKD-EPI)NonAf (>60 ml/min/1.73 sqM) Glucose (74-99) mg/dL Lactic Ac Sepsis Rflx Y Plasma Lactic Acid Isaiah (0.7-2.0) mmol/L Calcium (8.4-10.2) mg/dL Total Bilirubin (0.2-1.3) mg/dL AST (14-36) U/L ALT (9-52) U/L Alkaline Phosphatase (38-126) U/L Total Protein (6.3-8.2) g/dL Albumin (3.5-5.0) g/dL Amylase (30-110) U/L Lipase (23-300) U/L Urine Color Yellow Urine Appearance Cloudy H (Clear) Urine pH 5.0 (5.0-8.0) Ur Specific [place] 1.024 (1.001-1.035) Urine Protein Trace H (Negative) Urine Glucose (UA) Trace H (Negative) Urine Ketones Trace H (Negative) Urine Blood Negative (Negative) Urine Nitrite Negative (Negative) Urine Bilirubin Negative (Negative) Urine Urobilinogen <2.0 (<2.0) mg/dL Ur Leukocyte Esterase Small H (Negative) Urine RBC 1 (0-5) /hpf Urine WBC 2 (0-5) /hpf Ur Squamous Epith Cells 8 H (0-4) /hpf Urine Bacteria Rare H (None) /hpf Urine Mucus Few H (None) /hpf Urine HCG, Qual Not Detected (Not Detectd) Trichomonas Ag (Rapid) (Negative) 06/03/19 Range/Units 18:20 WBC (3.8-10.6) k/uL RBC (3.80-5.40) m/uL Hgb (11.4-16.0) gm/dL Hct (34.0-46.0) % MCV (80.0-100.0) fL MCH (25.0-35.0) pg MCHC (31.0-37.0) g/dL RDW (11.5-15.5) % Plt Count (150-450) k/uL Neutrophils % % Lymphocytes % % Monocytes % % Eosinophils % % Basophils % % Neutrophils # (1.3-7.7) k/uL Lymphocytes # (1.0-4.8) k/uL Monocytes # (0-1.0) k/uL Eosinophils # (0-0.7) k/uL Basophils # (0-0.2) k/uL Hypochromasia Poikilocytosis Anisocytosis Microcytosis Sodium (137-145) mmol/L Potassium (3.5-5.1) mmol/L Chloride (98-107) mmol/L Carbon Dioxide (22-30) mmol/L Anion Gap mmol/L BUN (7-17) mg/dL Creatinine (0.52-1.04) mg/dL Est GFR (CKD-EPI)AfAm (>60 ml/min/1.73 sqM) Est GFR (CKD-EPI)NonAf (>60 ml/min/1.73 sqM) Glucose (74-99) mg/dL Lactic Ac Sepsis Rflx Plasma Lactic Acid Isaiah (0.7-2.0) mmol/L Calcium (8.4-10.2) mg/dL Total Bilirubin (0.2-1.3) mg/dL AST (14-36) U/L ALT (9-52) U/L Alkaline Phosphatase (38-126) U/L Total Protein (6.3-8.2) g/dL Albumin (3.5-5.0) g/dL Amylase (30-110) U/L Lipase (23-300) U/L Urine Color Urine Appearance (Clear) Urine pH (5.0-8.0) Ur Specific [place] (1.001-1.035) Urine Protein (Negative) Urine Glucose (UA) (Negative) Urine Ketones (Negative) Urine Blood (Negative) Urine Nitrite (Negative) Urine Bilirubin (Negative) Urine Urobilinogen (<2.0) mg/dL Ur Leukocyte Esterase (Negative) Urine RBC (0-5) /hpf Urine WBC (0-5) /hpf Ur Squamous Epith Cells (0-4) /hpf Urine Bacteria (None) /hpf Urine Mucus (None) /hpf Urine HCG, Qual (Not Detectd) Trichomonas Ag (Rapid) Negative (Negative) Disposition <Shorty Henderson - Last Filed: 06/03/19 17:33> Is patient prescribed a controlled substance at d/c from ED?: No Decision Date: 06/03/19 Decision Time: 18:00 <Faith Aden - Last Filed: 06/03/19 19:51> Clinical Impression: Abdominal pain Disposition: ADMITTED IP TO THIS HOSP Condition: Stable
[2019-06-03 14:38] LABS: Anisocytosis Slight; Basophils # (A) 0.1 k/uL (0-0.2); Basophils % (A) 1 %; Eosinophils # (A) 0.5 k/uL (0-0.7); Eosinophils % (A) 4 %; HCT 33.4 % (34.0-46.0); HGB 10.2 gm/dL (11.4-16.0); Hypochromasia Marked; Lymphocytes # (A) 1.9 k/uL (1.0-4.8); Lymphocytes % (A) 15 %; MCH 20.4 pg (25.0-35.0); MCHC 30.5 g/dL (31.0-37.0); MCV 66.9 fL (80.0-100.0); Mean Platelet Volume 6.8; Microcytosis Marked; Monocytes # (A) 0.7 k/uL (0-1.0); Monocytes % (A) 6 %; Neutrophils % (A) 73 %; Platelet Count 463 k/uL (150-450); Poikilocytosis Slight; RBC 4.99 m/uL (3.80-5.40); RDW 16.6 % (11.5-15.5); WBC 12.3 k/uL (3.8-10.6)
[2019-06-03 14:46] LABS: ALT 39 U/L (9-52); AST 30 U/L (14-36); African American GFR (CKD) >90 (>60 ml/min/1.73 sqM); Alkaline Phosphatase 68 U/L (38-126); Amylase 276 U/L (30-110); Anion Gap 10 mmol/L; Blood Urea Nitrogen 12 mg/dL (7-17); Calcium 9.3 mg/dL (8.4-10.2); Carbon Dioxide 23 mmol/L (22-30); Chloride 105 mmol/L (98-107); Glucose 140 mg/dL (74-99); Potassium 4.1 mmol/L (3.5-5.1); Sodium 138 mmol/L (137-145); Total Bilirubin 0.2 mg/dL (0.2-1.3); Total Protein 6.6 g/dL (6.3-8.2)
[2019-06-03 15:06] LABS: Appearance,Urine Cloudy (Clear); Bacteria,Urine Rare /hpf; Bilirubin,Urine Negative (Negative); Blood,Urine Negative (Negative); Color,Urine Yellow; Glucose,Urine (UA) Trace (Negative); Ketones,Urine Trace (Negative); Leukocyte Esterase,Urine Small (Negative); Mucus,Urine Few /hpf; Nitrite,Urine Negative (Negative); Protein,Urine Trace (Negative); RBC,Urine 1 /hpf (0-5); Specific Gravity,Urine 1.024 (1.001-1.035); Squamous Epithelial Cell,Urine 8 /hpf (0-4); Urobilinogen,Urine <2.0 mg/dL (<2.0)
[2019-06-03] MEDS ORDERED: KETOROLAC 30 MG/ML 1 ML VIAL IVP STA (15:20)
--- NOTE | 2019-06-03 16:07 | CT ---
EXAMINATION TYPE: CT abdomen pelvis w con DATE OF EXAM: 06/03/2019 COMPARISON: 05/02/2015 HISTORY: Pelvic pain, diarrhea CT DLP: 1953.4 mGycm Automated exposure control for dose reduction was used. TECHNIQUE: Helical acquisition of images was performed from the lung bases through the pelvis. CONTRAST: Performed without Oral Contrast and with IV Contrast, patient injected with 100 mL of Isovue 300. FINDINGS: LUNG BASES: No significant abnormality is appreciated. LIVER/GB: No significant abnormality is appreciated. Gallbladder surgically absent. PANCREAS: No significant abnormality is seen. SPLEEN: No significant abnormality is seen. ADRENALS: No significant abnormality is seen. KIDNEYS: No significant abnormality is seen. FREE AIR: No free air is visualized. RETROPERITONEAL ADENOPATHY: None visualized REPRODUCTIVE ORGANS: Diffuse heterogeneous enlargement of the uterus measuring approximately 10.4 x 9 .7 x 8.9 cm in AP by transverse by craniocaudad dimension. A few multilobulated structures are seen a rising from the uterine body and fundus. Small cyst is seen in the left ovary measuring up to 2.5 cm. URINARY BLADDER: No significant abnormality is seen. PELVIC ADENOPATHY: None visualized. OSSEOUS STRUCTURES: Mild degenerative changes seen at L4-5. BOWEL: No evidence of bowel obstruction no ascites. No free intraperitoneal air. Mild pericolonic fa t stranding/haziness along the descending and right colon. Appendix is normal. Fat deposition within the wall of the right colon. IMPRESSION: DIFFUSE HETEROGENEOUS ENLARGEMENT OF THE UTERUS WHICH IS SIGNIFICANTLY INCREASED IN SIZE WHEN COMPARE D TO 05/02/2015. FINDINGS MAY BE ON THE BASIS OF PATIENT'S MENSTRUATION STATUS, BUT UTERINE MASS OR IN FECTIOUS PROCESS IS NOT EXCLUDED. FURTHER EVALUATION WITH PELVIC ULTRASOUND IS RECOMMENDED. INCIDENTAL NOTE OF MILD PERICOLONIC FAT STRANDING IN THE RIGHT COLON WHICH MAY BE ON THE BASIS OF MIL D COLITIS/GASTROENTERITIS.
[2019-06-03] MEDS ORDERED: MORPHINE SULFATE 4 MG/ML SYRINGE IVP STA (17:00)
[2019-06-03] MEDS ORDERED: ACETAMINOPHEN TAB 325 MG TAB PO PRN (18:25)
[2019-06-03] MEDS ORDERED: traMADol 50 MG TAB PO PRN (18:25)
[2019-06-03] MEDS ORDERED: ONDANSETRON 4 MG/2 ML VIAL IVP PRN ×2 (18:25→19:31)
[2019-06-03] MEDS ORDERED: NALOXONE 0.4 MG/ML 1 ML VIAL IV PRN ×2 (18:25→19:31)
[2019-06-03] MEDS ORDERED: SODIUM CHLORIDE 0.9% 1,000 ML IV SCH (18:30)
--- NOTE | 2019-06-03 19:32 | P.HPIM ---
History of Present Illness H&P Date: 06/03/19 Chief Complaint: diarrhea Patient is a 38-year-old female with a past medical history of hypertension, diabetes controlled on oral medications, GERD, asthma, and seizure disorder who presented to the emergency department with complaints of diarrhea. In the ER she underwent an extensive evaluation. On arrival she was tachycardic with a pulse of 104. Laboratory analysis and elevated white blood cell count 12.3, hemoglobin of 10.2, elevated platelets at 463, glucose of 140, and lactic acid of 2.9. Her amylase and lipase were elevated at 276 and 1591 respectively. She underwent a CT abdomen and pelvis which demonstrated diffuse heterogeneous enlargement of the uterus which is significantly increased in size compared to 2015 [place] on the basis of patient's menstruation status post uterine mass or infectious process not excluded recommend further evaluation with pelvic ultrasound. She also was noted to have.: Fat stranding in the right colon indicative of colitis. The emergency department she received 2 L of normal saline Zofran, morphine, and Toradol. Arrangements are made for admission secondary to colitis with sepsis and possible pancreatitis. Patient's clinical picture did not fit with pancreatitis but is consistent with colitis. Patient seen and examined at bedside. She reports that she's had diarrhea for 9 days. And has been profuse and watery, no blood. It is associated with lower abdominal cramping which radiates into the upper abdomen. She also reports vomiting that has been getting worse over time. She is unable to tolerate oral intake without nausea or vomiting. She reports that her daughter had similar symptoms that started 9 days ago but she improved about 2 days ago. She has had subjective fever and chills at home but has not taken her temperature. She reports overall fatigue and weakness. She has noticed a 5 pound weight loss. She has noted dark urine. She denies any dysuria. She does have unprotected sex with one male partner she's been with for 3 years. They're currently trying to have a baby. She reports that she has heavy periods with excessive cramping as well as passing clots that are as large as golf ball 5\. She states it's very painful when she passes these clots. She denies any vaginal discharge, odor, or itching. She has no history of sexually transmitted infections. She reports that her last menstrual period was 05/22/19. She is a well aware of her anemia and states that her family physician has been following blood work. Review of Systems Pertinent positives and negatives as discussed in HPI, a complete review of systems was performed and all other systems are negative. Past Medical History Past Medical History: Asthma, Chest Pain / Angina, Diabetes Mellitus, GERD/Reflux, Hypertension, Musculoskeletal Disorder, Pneumonia, Seizure Disorder Additional Past Medical History / Comment(s): Bronchitis, NIDDM type II, seizure as a child with fever and possibly in 2013, migraines, chronic low back pain L4- L5, arrhythmia-pt does not know what type, sinus problems, seasonal allergies, UTI. Anemia. Depression. History of Any Multi-Drug Resistant Organisms: MRSA Date of last positivie culture/infection: 05/11/18 MDRO Source:: BACK Past Surgical History: Cholecystectomy, Hernia Repair Additional Past Surgical History / Comment(s): 3 ABDOMINAL HERNIAS REPAIRED, colonoscopy. Past Anesthesia/Blood Transfusion Reactions: No Reported Reaction Past Psychological History: Anxiety, Depression Smoking Status: Current every day smoker (Smokes a half a pack per day) Past Alcohol Use History: None Reported Past Drug Use History: None Reported Additional History: Lives with her fianc and 2 kids, no assistive devices - Past Family History Father Family Medical History: Cancer Additional Family Medical History / Comment(s): FATHER OF THROAT [place] Mother Family Medical History: Asthma, COPD Additional Family Medical History / Comment(s): MOTHER IS STILL LIVING. Medications and Allergies Home Medications Medication Instructions Recorded Confirmed Type lamoTRIgine [LaMICtal] 75 mg PO BID 09/12/17 06/03/19 History traZODone HCL [Desyrel] 100 mg PO HS 12/14/18 06/03/19 History metFORMIN HCL [Glucophage] 1,000 mg PO BID 12/18/18 06/03/19 History Albuterol Inhaler [Ventolin Hfa 1 - 2 puff INHALATION RT-Q6H PRN 03/02/19 06/03/19 History Inhaler] Ferrous Sulfate [Feosol] 325 mg PO DAILY 06/03/19 06/03/19 History Folic Acid 1 mg PO DAILY 06/03/19 06/03/19 History Allergies Allergy/AdvReac Type Severity Reaction Status Date / Time egg yolk Allergy Anaphylaxis Verified 06/03/19 13:48 peanut Allergy Anaphylaxis Verified 06/03/19 13:48 influenza virus vaccine, AdvReac Unknown Verified 06/03/19 13:48 specific [Influenza Virus Vacc,Specific] Physical Exam Osteopathic Statement: *. No significant issues noted on an osteopathic structural exam other than those noted in the History and Physical/Consult. Vitals: Vital Signs Temp Pulse Resp BP Pulse Ox 06/03/19 18:13 97.8 F 94 18 113/67 95 06/03/19 15:51 97 18 112/55 98 06/03/19 13:23 98 F 104 H 18 121/79 95 Intake and Output 06/03/19 06/03/19 06/03/19 06:59 14:59 22:59 Other: Weight 258.5 kg General: non toxic, no distress, appears at stated age, obese Derm: no unusual rashes/lesions no unusual ecchymoses, warm, dry Head: atraumatic, normocephalic, symmetric Eyes: EOMI, no lid lag, anicteric sclera, pupils equal round reactive to light ENT: Nose and ears atraumatic, no thrush, + pharyngeal erythema Neck: No thyromegaly, no cervical lymphadenopathy, trachea midline, supple Mouth: no lip lesion, mucus membranes dry Cardiovascular: S1S2 reg, no murmur, positive posterior tibial pulse bilateral, no edema, capillary refill less than 2 seconds Lungs: CTA bilateral, no rhonchi, no rales , no accessory muscle use Abdominal: soft, significantly tender to palpation right and left lower quadrant, mildly tender to palpation in right and left upper quadrant, no guarding, no appreciable organomegaly, normal bowel sounds Ext: no gross muscle atrophy, muscle strength 5 out of 5 in all 4 extremities grossly, no contractures, Neuro: CN II-XI grossly intact, light touch intact all 4 extremities, finger to nose within normal limits, Psych: Alert, oriented, appropriate affect Genitourinary exam performed by emergency department physician assistant attorney general Results CBC & Chem 7: 06/03/19 14:20 06/03/19 14:20 Labs: Abnormal Lab Results - Last 24 Hours (Table) 06/03/19 06/03/19 06/03/19 Range/Units 14:20 14:20 14:20 WBC 12.3 H (3.8-10.6) k/uL Hgb 10.2 L (11.4-16.0) gm/dL Hct 33.4 L (34.0-46.0) % MCV 66.9 L (80.0-100.0) fL MCH 20.4 L (25.0-35.0) pg MCHC 30.5 L (31.0-37.0) g/dL RDW 16.6 H (11.5-15.5) % Plt Count 463 H (150-450) k/uL Neutrophils # 9.0 H (1.3-7.7) k/uL Glucose 140 H (74-99) mg/dL Plasma Lactic Acid Isaiah 2.9 H* (0.7-2.0) mmol/L Amylase 276 H (30-110) U/L Lipase 1591 H (23-300) U/L Urine Appearance (Clear) Urine Protein (Negative) Urine Glucose (UA) (Negative) Urine Ketones (Negative) Ur Leukocyte Esterase (Negative) Ur Squamous Epith Cells (0-4) /hpf Urine Bacteria (None) /hpf Urine Mucus (None) /hpf 06/03/19 Range/Units 14:50 WBC (3.8-10.6) k/uL Hgb (11.4-16.0) gm/dL Hct (34.0-46.0) % MCV (80.0-100.0) fL MCH (25.0-35.0) pg MCHC (31.0-37.0) g/dL RDW (11.5-15.5) % Plt Count (150-450) k/uL Neutrophils # (1.3-7.7) k/uL Glucose (74-99) mg/dL Plasma Lactic Acid Isaiah (0.7-2.0) mmol/L Amylase (30-110) U/L Lipase (23-300) U/L Urine Appearance Cloudy H (Clear) Urine Protein Trace H (Negative) Urine Glucose (UA) Trace H (Negative) Urine Ketones Trace H (Negative) Ur Leukocyte Esterase Small H (Negative) Ur Squamous Epith Cells 8 H (0-4) /hpf Urine Bacteria Rare H (None) /hpf Urine Mucus Few H (None) /hpf CT scan - abdomen: report reviewed CT scan - pelvis: report reviewed Thrombosis Risk Factor Assmnt - DVT/VTE Prophylaxis DVT/VTE Prophylaxis: Low risk, early ambulation encouraged Assessment and Plan Assessment: Colitis with sepsis -Start Rocephin and Flagyl is concern for bacterial infection -Check C. diff -IV fluids -Antiemetics -Clear liquid diet -Pain control Elevated lipase -CT negative and without classical signs of pancreatitis -Undetermined significance -Repeat in a.m. -Is on IV fluids Enlarged uterus -Transvaginal ultrasound -Concern is for possible fibroids -Outpatient FINISH FILER evaluation Diabetes mellitus type 2 -Hold metformin -Sliding-scale insulin -In Rusty A1c from 05/11/19 8.1 Elevated lactic acid -Likely secondary to sepsis -Repeat in 6 hours -IV fluids Hypertension, controlled -Not on outpatient medications Obesity with BMI that is incorrect patient weighs 258.5 pounds -Outpatient structured weight loss Chronic: Asthma Seizure disorder Chronic low back pain GERD The patient is admitted with an anticipated greater than 2 midnight stay for evaluation of Colitis with sepsis. Surrogate decision-maker: Hoa CODE STATUS:Full DVT prophylaxis: SCDs Discussed with: ED physician, nursing, patient Anticipated discharge date: 1-[address]: home A total of [60] minutes was spent on the care of this complex patient more than 50% of the time was spent in counseling and care coordination.
--- NOTE | 2019-06-03 19:34 | US ---
EXAMINATION TYPE: US transvaginal DATE OF EXAM: 06/03/2019 COMPARISON: US, CT CLINICAL HISTORY: Pain. Pain x 9 days. . TECHNIQUE: Transvaginal (TV). : Limited transabdominal views were unclear. Date of LMP: 05/22/2019 EXAM MEASUREMENTS: Uterus: 12.8 x 9.4 x 8.1 cm Endometrial Stripe: not clearly seen Right Ovary: not seen Left Ovary: not seen 1. Uterus: Anteverted Appears very heterogeneous. Appears enlarged. Cannot distinguish possible ma sses from uterine tissue. Multiple anechoic areas seen in cervix, largest measurin.6 x 0.7 x 0.8 cm. 2. Endometrium: not clearly seen 3. Right Ovary: not seen 4. Left Ovary: not seen 5. Bilateral Adnexa: obscured by bowel 6. Posterior cul-de-sac: appears wnl IMPRESSION: Enlarged uterus. Cervical cysts. Endometrium not well evaluated. There are probably uteri ne fibroids. No adnexal mass. If there is persistent clinical indication MR scan is recommended.
[2019-06-03] MEDS ORDERED: ALBUTEROL NEBULIZED 2.5 MG/3 ML INHALATION PRN (19:44)
[2019-06-03] MEDS ORDERED: traZODone HCL 100 MG TAB PO SCH (21:00)
[2019-06-03] MEDS: CHOLESTYRAMINE (WITH SUGAR) 4 GM PACKET PO SCH (21:30)
[2019-06-03] MEDS: metroNIDAZOLE 500 MG TAB PO SCH (21:30)
[2019-06-03] MEDS: lamoTRIgine 25 MG TAB PO SCH (21:30)
[2019-06-03 22:13] VITALS: BMI 45.8
[2019-06-03] MEDS: MORPHINE SULFATE 4 MG/ML SYRINGE IV PRN (22:33)
[2019-06-04] MEDS: MORPHINE SULFATE 4 MG/ML SYRINGE IV PRN ×2 (06:02→10:05)
[2019-06-04 07:17] LABS: Glucose,Whole Blood 143 mg/dL (75-99)
[2019-06-04] MEDS: CHOLESTYRAMINE (WITH SUGAR) 4 GM PACKET PO SCH ×2 (07:25→12:34)
[2019-06-04] MEDS: metroNIDAZOLE 500 MG TAB PO SCH (07:26)
[2019-06-04] MEDS: lamoTRIgine 25 MG TAB PO SCH (07:26)
[2019-06-04] MEDS: INSULIN ASPART (NovoLOG) 100 UNIT/ML VIAL SQ SCH ×2 (07:26→11:35)
[2019-06-04 08:08] VITALS: BP 103/70; PULSE 86; RESP 16; TEMP 97.8
[2019-06-04 08:27] LABS: Anisocytosis Slight; HCT 29.4 % (34.0-46.0); Hypochromasia Marked; MCH 20.5 pg (25.0-35.0); MCHC 29.5 g/dL (31.0-37.0); MCV 69.5 fL (80.0-100.0); Microcytosis Marked; Platelet Count 381 k/uL (150-450); RBC 4.23 m/uL (3.80-5.40); RDW 16.9 % (11.5-15.5)
[2019-06-04 08:36] LABS: African American GFR (CKD) >90 (>60 ml/min/1.73 sqM); Anion Gap 7 mmol/L; Blood Urea Nitrogen 9 mg/dL (7-17); Calcium 8.1 mg/dL (8.4-10.2); Carbon Dioxide 24 mmol/L (22-30); Chloride 107 mmol/L (98-107); Glucose 119 mg/dL (74-99); Magnesium 1.9 mg/dL (1.6-2.3); Potassium 4.1 mmol/L (3.5-5.1); Sodium 138 mmol/L (137-145)
[2019-06-04 08:46] LABS: HGB 8.7 gm/dL (11.4-16.0)
[2019-06-04] MEDS ORDERED: FOLIC ACID 1 MG TAB PO SCH (09:00)
[2019-06-04] MEDS ORDERED: FERROUS SULFATE 325 MG TAB PO SCH (09:00)
[2019-06-04 11:32] LABS: Glucose,Whole Blood 125 mg/dL (75-99)
[2019-06-04 15:05] LABS: C. trachomatis,PCR Negative (Neg,Equiv); Chlamydia trachomatis Source Cervix
[2019-06-04 15:06] LABS: N. gonorrhoeae,PCR Negative (Neg,Equiv); Neisseria Source Cervix
--- NOTE | 2019-06-04 15:13 | P.DS ---
Providers Date of admission: 06/03/19 18:25 Expected date of discharge: 06/04/19 Attending physician: Susanne Malik DO Primary care physician: Faith Segovia MD Hospital Course: Discharge Diagnosis: Colitis with sepsis Elevated lipase Enlarged uterus consistent with fibroids Diabetes mellitus type 2 Elevated lactic acid Hypertension Obesity with BMI 45.7 Hospital Course: Patient is a 38-year-old female with a past medical history of hypertension, diabetes controlled on oral medications, GERD, asthma, and seizure disorder who presented to the emergency department with complaints of diarrhea. In the ER she underwent an extensive evaluation. On arrival she was tachycardic with a pulse of 104. Laboratory analysis and elevated white blood cell count 12.3, hemoglobin of 10.2, elevated platelets at 463, glucose of 140, and lactic acid of 2.9. Her amylase and lipase were elevated at 276 and 1591 respectively. She underwent a CT abdomen and pelvis which demonstrated diffuse heterogeneous enlargement of the uterus which is significantly increased in size compared to 2015 could be on the basis of patient's menstruation status post uterine mass or infectious process not excluded recommend further evaluation with pelvic ultrasound. She also was noted to have pericolonic fat stranding in the right colon indicative of colitis. The emergency department she received 2 L of normal saline Zofran, morphine, and Toradol. Arrangements are made for admission secondary to colitis with sepsis and possible pancreatitis. Patient's clinical picture did not fit with pancreatitis but is consistent with colitis. She was started on Rocephin and Flagyl. She was also started on cholestyramine. She underwent a transvaginal ultrasound which showed an enlarged uterus without any endometrial abnormalities and areas of abnormality consistent with uterine fibroids. She was tolerating a diet. Her white blood cell count resolved. She did not have anymore episodes of diarrhea after coming to the hospital. She is determined stable for discharge. She'll complete a five-day course of Rocephin and Vantin for colitis. She will also take cholestyramine for the next 4 days. Also suggested that she follow up with [facility] for her uterus enlargement. She will see Dr. Segovia and the next 2-3 days for follow-up. C. diff testing was ordered but was unable to be obtained as patient did not have any additional episodes of diarrhea after admission. I've encouraged her to return to the hospital should she have increasing diarrhea, abdominal pain, or fevers. Her lipase had become normal in one day and it was felt that her lipase is likely falsely elevated on blood work. Patient improved faster than anticipated and was subsequently discharged less th an 2 minutes Patient seen and examined at bedside. Abdominal pain is much better. No upsets diarrhea since becoming in the hospital. Tolerating diet. No vomiting but still has some nausea. Vital signs reviewed and stable. General: non toxic, no distress, appears at stated age Derm: warm, dry Head: atraumatic, normocephalic, symmetric Eyes: EOMI, no lid lag, anicteric sclera Mouth: no lip lesion, mucus membranes moist Cardiovascular: S1S2 reg, no murmur, positive posterior tibial pulse bilateral, Lungs: CTA bilateral, no rhonchi, no rales , no accessory muscle use Abdominal: soft, nontender to palpation, no guarding, no appreciable organomegaly Ext: no gross muscle atrophy, no edema, no contractures Neuro: CN II-XI grossly intact, no focal neuro deficits Psych: Alert, oriented, appropriate affect A total of 35 minutes of time were spent preparing this complex discharge summary . Pertinent Studies: As dictated in hospital course Patient Condition at Discharge: Stable Plan - Discharge Summary Discharge Rx Participant: Yes New Discharge Prescriptions: New metroNIDAZOLE [Flagyl] 500 mg PO BID #10 tab Cholestyramine (with Sugar) [Questran Packet] 4 gm PO ACHS #16 packet Cefpodoxime Proxetil [Vantin] 200 mg PO Q12HR #10 tab Continue lamoTRIgine [LaMICtal] 75 mg PO BID traZODone HCL [Desyrel] 100 mg PO HS metFORMIN HCL [Glucophage] 1,000 mg PO BID Albuterol Inhaler [Ventolin Hfa Inhaler] 1 - 2 puff INHALATION RT-Q6H PRN PRN Reason: Shortness Of Breath Folic Acid 1 mg PO DAILY Ferrous Sulfate [Iron (65 MG Elemental)] 325 mg PO DAILY Discharge Medication List lamoTRIgine [LaMICtal] 75 mg PO BID 09/12/17 [History] traZODone HCL [Desyrel] 100 mg PO HS 12/14/18 [History] metFORMIN HCL [Glucophage] 1,000 mg PO BID 12/18/18 [History] Albuterol Inhaler [Ventolin Hfa Inhaler] 1 - 2 puff INHALATION RT-Q6H PRN 03/02/19 [History] Ferrous Sulfate [Iron (65 MG Elemental)] 325 mg PO DAILY 06/03/19 [History] Folic Acid 1 mg PO DAILY 06/03/19 [History] Cefpodoxime Proxetil [Vantin] 200 mg PO Q12HR #10 tab 06/04/19 [Rx] Cholestyramine (with Sugar) [Questran Packet] 4 gm PO ACHS #16 packet 06/04/19 [Rx] metroNIDAZOLE [Flagyl] 500 mg PO BID #10 tab 06/04/19 [Rx] Follow up Appointment(s)/Referral(s): Faith Segovia MD [Primary Care Provider] - 1-2 days Activity/Diet/Wound Care/Special Instructions: bland diet activity as tolerated good hand washing, clean all surfaces (Counters and Toilets) with bleach containing product Return if worsening abdominal pain, fevers, or diarrhea.
[2019-06-04 16:31] LABS: Ferritin 10.4 ng/mL (10.0-291.0); Iron Saturation 4.26 (12.00-45.00)
== END 2019-06-04 16:12 | disposition home or self-care (01) ==
LOC: EC 13:17 → 4SSUR 18:25 → UNDOADMIN 18:25 → INTOOBSV 18:25 → 4SSUR 18:51 → UNDODISIN 06-04 16:12
PROVIDERS: ADMIT Internal Medicine; ATTEND Internal Medicine
DX: A41.9 Sepsis, unspecified organism (principal); K52.9 Noninfective gastroenteritis and colitis, unspecified; E87.2 Acidosis; E86.0 Dehydration; D64.9 Anemia, unspecified; E11.9 Type 2 diabetes mellitus without complications; E66.9 Obesity, unspecified; Z68.42 Body mass index [BMI] 45.0-49.9, adult; F17.210 Nicotine dependence, cigarettes, uncomplicated; F32.9 Major depressive disorder, single episode, unspecified; F41.9 Anxiety disorder, unspecified; G40.909 Epilepsy, unspecified, not intractable, without status epilepticus; G89.29 Other chronic pain; M54.5 Low back pain; I10 Essential (primary) hypertension; J45.909 Unspecified asthma, uncomplicated; K21.9 Gastro-esophageal reflux disease without esophagitis; R74.8 Abnormal levels of other serum enzymes; G43.909 Migraine, unspecified, not intractable, without status migrainosus; N85.2 Hypertrophy of uterus; N88.8 Other specified noninflammatory disorders of cervix uteri; I49.9 Cardiac arrhythmia, unspecified; N92.0 Excessive and frequent menstruation with regular cycle; Z79.84 Long term (current) use of oral hypoglycemic drugs; Z79.899 Other long term (current) drug therapy; Z90.49 Acquired absence of other specified parts of digestive tract; Z88.7 Allergy status to serum and vaccine; Z91.012 Allergy to eggs; Z91.010 Allergy to peanuts; Z87.440 Personal history of urinary (tract) infections; Z87.01 Personal history of pneumonia (recurrent); Z86.14 Personal history of Methicillin resistant Staphylococcus aureus infection; Z80.0 Family history of malignant neoplasm of digestive organs; Z82.5 Family history of asthma and other chronic lower respiratory diseases
CPT/HCPCS: 96376 ×3; 96365; 96361; 96375; 99285; 36415; 94640; 80053; 80048; 82728; 82150; 83540; 83550; 83605; 83690 ×2; 83735; 85025; 85027; 81001; 81025; 87808; 87491; 87591; 76830; 74177; G0378 ×2; J2270 ×2; J2405 ×2; J0696 ×2; J1885; Q9967; 96374

== ENCOUNTER 2019-07-14 09:58 | Emergency (ER) | payer OTHER ==
[2019-07-14 10:52] VITALS: BP 135/72; RESP 18; TEMP 98.4
[2019-07-14] MEDS ORDERED: SODIUM CHLORIDE 0.9% 500 ML 500 ML IV STA (11:02)
[2019-07-14] MEDS ORDERED: methylPREDNISolone SOD SUCCI 125 MG/2 ML VIAL IV STA (11:03)
[2019-07-14] MEDS ORDERED: IPRATROPIUM-ALBUTEROL 3 ML NEB INHALATION STA (11:03)
--- NOTE | 2019-07-14 11:08 | ED ---
General Adult HPI - General Chief complaint: Chest Pain Stated complaint: vomiting/diarrhea/SOB Time Seen by Provider: 07/14/19 10:54 Source: patient, RN notes reviewed Mode of arrival: wheelchair Limitations: no limitations - History of Present Illness Initial comments: Becky is a 39-year-old female with a past medical history of asthma, chest pain, diabetes, GERD, hypertension who presents to the emergency department for multiple complaints. Patient states she has had nausea vomiting diarrhea for the past 3 days. States she is drinking a home but it is difficult to keep fluids down has of her nausea. Denies any abdominal pain or fevers. Denies any recent travel or hospitalizations. Patient also complaining of cough with shortness of breath. States she has a history of asthma and smokes. States she feels that she is having an asthma exacerbation. States cough is productive. No fevers or chills.admits to tightness of the chest but denies any significant pain. Denies any radiating pain. Patient has no other complaints at this time including chest pain, abdominal pain, headache, or visual changes. - Related Data Home Medications Medication Instructions Recorded Confirmed lamoTRIgine [LaMICtal] 75 mg PO BID 09/12/17 07/14/19 metFORMIN HCL [Glucophage] 1,000 mg PO BID 12/18/18 07/14/19 Albuterol Inhaler [Ventolin Hfa 1 - 2 puff INHALATION RT-Q6H PRN 03/02/19 07/14/19 Inhaler] Ferrous Sulfate [Iron (65 MG 325 mg PO DAILY 06/03/19 07/14/19 Elemental)] Albuterol Nebulized [Ventolin 2.5 mg INHALATION RT-Q4H PRN 07/14/19 07/14/19 Nebulized] Desvenlafaxine Succinate [Pristiq] 50 mg PO DAILY 07/14/19 07/14/19 traZODone HCL 50 mg PO HS 07/14/19 07/14/19 Previous Rx's Medication Instructions Recorded Ondansetron [Zofran ODT] 4 mg PO Q8HR PRN #15 tab 07/14/19 predniSONE 50 mg PO DAILY #5 tablet 07/14/19 Allergies Allergy/AdvReac Type Severity Reaction Status Date / Time egg yolk Allergy Anaphylaxis Verified 07/14/19 11:23 peanut Allergy Anaphylaxis Verified 07/14/19 11:23 influenza virus vaccine, AdvReac Unknown Verified 07/14/19 11:23 specific [Influenza Virus Vacc,Specific] Review of Systems ROS Statement: Those systems with pertinent positive or pertinent negative responses have been documented in the HPI. ROS Other: All systems not noted in ROS Statement are negative. Past Medical History Past Medical History: Asthma, Chest Pain / Angina, Diabetes Mellitus, GERD/Reflux, Hypertension, Musculoskeletal Disorder, Pneumonia, Seizure Disorder Additional Past Medical History / Comment(s): Bronchitis, NIDDM type II, seizure as a child with fever and possibly in 2014, migraines, chronic low back pain L4- L5, arrhythmia-pt does not know what type, sinus problems, seasonal allergies, UTI. History of Any Multi-Drug Resistant Organisms: MRSA Date of last positivie culture/infection: 05/11/18 MDRO Source:: BACK Past Surgical History: Cholecystectomy, Hernia Repair Additional Past Surgical History / Comment(s): 3 ABDOMINAL HERNIAS REPAIRED, colonoscopy. Past Anesthesia/Blood Transfusion Reactions: No Reported Reaction Past Psychological History: Anxiety, Depression Smoking Status: Current some day smoker Past Alcohol Use History: None Reported Past Drug Use History: None Reported - Past Family History Father Family Medical History: Cancer Additional Family Medical History / Comment(s): FATHER OF THROAT [employer] Mother Family Medical History: Asthma, COPD Additional Family Medical History / Comment(s): MOTHER IS STILL LIVING. General Exam Limitations: no limitations General appearance: alert, in no apparent distress Head exam: Present: atraumatic, normocephalic, normal inspection Eye exam: Present: normal appearance, PERRL, EOMI. Absent: scleral icterus, conjunctival injection, periorbital swelling ENT exam: Present: normal exam, normal oropharynx, mucous membranes moist, TM's normal bilaterally, normal external ear exam Neck exam: Present: normal inspection, full ROM. Absent: tenderness, meningismus, lymphadenopathy Respiratory exam: Present: normal lung sounds bilaterally, wheezes (Wheezing noted in bilateral lung bright). Absent: respiratory distress, rales, rhonchi, stridor Cardiovascular Exam: Present: regular rate, normal rhythm, normal heart sounds. Absent: systolic murmur, diastolic murmur, rubs, gallop, clicks GI/Abdominal exam: Present: soft, normal bowel sounds. Absent: distended, tenderness (Soft nontender abdomen), guarding, rebound, rigid Neurological exam: Present: alert Psychiatric exam: Present: normal affect, normal mood Course Vital Signs 07/14/19 07/14/19 07/14/19 10:50 11:55 12:04 Temperature 98.4 F Pulse Rate 102 H 96 92 Respiratory 18 Rate Blood Pressure 135/72 O2 Sat by Pulse 99 Oximetry EKG Findings - EKG Comments: EKG Findings:: Normal sinus rhythm, ventricular rate 94, TX interval 130, QTC 457 Medical Decision Making - Medical Decision Making Becky is a 39-year-old female with a past medical history of asthma, chest pain, diabetes, GERD, hypertension who presents for multiple complaints. Patient has had nausea vomiting diarrhea for the past 3 days. States she is drinking fluids at home but it is difficult to keep these down due to her nausea. Denies any abdominal pain. Patient also has a cough, history of asthma. It is a stable. Patient is 99% on room air. No respiratory distress. Examination reveals a soft and nontender abdomen. Mucous members are moist. Lungs do sound wheezy bilaterally. Patient was given breathing treatment and steroids. CBC unremarkable. Mild leukocytosis which is likely secondary to vomiting. CMP unremarkable. Patient likely has asthma exacerbation as well as possible gastroenteritis. She does not have any pain imaging was done, no concern for obstruction. Patient will be given steroid prescription for asthma exacerbation as well as Zofran procedure for nausea. She will return if she is any worsening symptoms or otherwise follow-up with primary care. Patient has breathing treatments and inhalers at home. - Lab Data Result diagrams: 07/14/19 11:11 07/14/19 11:11 Lab Results 07/14/19 07/14/19 07/14/19 Range/Units 11:11 11:11 11:11 WBC 12.1 H (3.8-10.6) k/uL RBC 5.59 H (3.80-5.40) m/uL Hgb 13.0 D (11.4-16.0) gm/dL Hct 41.9 (34.0-46.0) % MCV 74.9 L D (80.0-100.0) fL MCH 23.2 L (25.0-35.0) pg MCHC 30.9 L (31.0-37.0) g/dL RDW 20.5 H (11.5-15.5) % Plt Count 428 (150-450) k/uL Neutrophils % 75 % Lymphocytes % 13 % Monocytes % 6 % Eosinophils % 4 % Basophils % 1 % Neutrophils # 9.1 H (1.3-7.7) k/uL Lymphocytes # 1.5 (1.0-4.8) k/uL Monocytes # 0.7 (0-1.0) k/uL Eosinophils # 0.5 (0-0.7) k/uL Basophils # 0.1 (0-0.2) k/uL Hypochromasia Marked Anisocytosis Moderate Microcytosis Moderate PT 10.1 (9.0-12.0) sec INR 0.9 (<1.2) APTT 22.5 (22.0-30.0) sec Sodium 139 (137-145) mmol/L Potassium 4.9 (3.5-5.1) mmol/L Chloride 107 (98-107) mmol/L Carbon Dioxide 19 L (22-30) mmol/L Anion Gap 13 mmol/L BUN 15 (7-17) mg/dL Creatinine 0.50 L (0.52-1.04) mg/dL Est GFR (CKD-EPI)AfAm >90 (>60 ml/min/1.73 sqM) Est GFR (CKD-EPI)NonAf >90 (>60 ml/min/1.73 sqM) Glucose 141 H (74-99) mg/dL Calcium 9.7 (8.4-10.2) mg/dL Magnesium 2.1 (1.6-2.3) mg/dL Total Bilirubin 0.4 (0.2-1.3) mg/dL AST 30 (14-36) U/L ALT 29 (9-52) U/L Alkaline Phosphatase 77 (38-126) U/L Troponin I (0.000-0.034) ng/mL Total Protein 7.2 (6.3-8.2) g/dL Albumin 4.4 (3.5-5.0) g/dL Amylase (30-110) U/L Lipase (23-300) U/L Urine Color Urine Appearance (Clear) Urine pH (5.0-8.0) Ur Specific Buckley (1.001-1.035) Urine Protein (Negative) Urine Glucose (UA) (Negative) Urine Ketones (Negative) Urine Blood (Negative) Urine Nitrite (Negative) Urine Bilirubin (Negative) Urine Urobilinogen (<2.0) mg/dL Ur Leukocyte Esterase (Negative) Urine RBC (0-5) /hpf Urine WBC (0-5) /hpf Ur Squamous Epith Cells (0-4) /hpf Hyaline Casts (0-2) /lpf Urine Mucus (None) /hpf Urine HCG, Qual (Not Detectd) 07/14/19 07/14/19 07/14/19 Range/Units 11:11 11:11 13:10 WBC (3.8-10.6) k/uL RBC (3.80-5.40) m/uL Hgb (11.4-16.0) gm/dL Hct (34.0-46.0) % MCV (80.0-100.0) fL MCH (25.0-35.0) pg MCHC (31.0-37.0) g/dL RDW (11.5-15.5) % Plt Count (150-450) k/uL Neutrophils % % Lymphocytes % % Monocytes % % Eosinophils % % Basophils % % Neutrophils # (1.3-7.7) k/uL Lymphocytes # (1.0-4.8) k/uL Monocytes # (0-1.0) k/uL Eosinophils # (0-0.7) k/uL Basophils # (0-0.2) k/uL Hypochromasia Anisocytosis Microcytosis PT (9.0-12.0) sec INR (<1.2) APTT (22.0-30.0) sec Sodium (137-145) mmol/L Potassium (3.5-5.1) mmol/L Chloride (98-107) mmol/L Carbon Dioxide (22-30) mmol/L Anion Gap mmol/L BUN (7-17) mg/dL Creatinine (0.52-1.04) mg/dL Est GFR (CKD-EPI)AfAm (>60 ml/min/1.73 sqM) Est GFR (CKD-EPI)NonAf (>60 ml/min/1.73 sqM) Glucose (74-99) mg/dL Calcium (8.4-10.2) mg/dL Magnesium (1.6-2.3) mg/dL Total Bilirubin (0.2-1.3) mg/dL AST (14-36) U/L ALT (9-52) U/L Alkaline Phosphatase (38-126) U/L Troponin I <0.012 (0.000-0.034) ng/mL Total Protein (6.3-8.2) g/dL Albumin (3.5-5.0) g/dL Amylase 52 (30-110) U/L Lipase 50 (23-300) U/L Urine Color Urine Appearance (Clear) Urine pH (5.0-8.0) Ur Specific Buckley (1.001-1.035) Urine Protein (Negative) Urine Glucose (UA) (Negative) Urine Ketones (Negative) Urine Blood (Negative) Urine Nitrite (Negative) Urine Bilirubin (Negative) Urine Urobilinogen (<2.0) mg/dL Ur Leukocyte Esterase (Negative) Urine RBC (0-5) /hpf Urine WBC (0-5) /hpf Ur Squamous Epith Cells (0-4) /hpf Hyaline Casts (0-2) /lpf Urine Mucus (None) /hpf Urine HCG, Qual Not Detected (Not Detectd) 07/14/19 Range/Units 13:10 WBC (3.8-10.6) k/uL RBC (3.80-5.40) m/uL Hgb (11.4-16.0) gm/dL Hct (34.0-46.0) % MCV (80.0-100.0) fL MCH (25.0-35.0) pg MCHC (31.0-37.0) g/dL RDW (11.5-15.5) % Plt Count (150-450) k/uL Neutrophils % % Lymphocytes % % Monocytes % % Eosinophils % % Basophils % % Neutrophils # (1.3-7.7) k/uL Lymphocytes # (1.0-4.8) k/uL Monocytes # (0-1.0) k/uL Eosinophils # (0-0.7) k/uL Basophils # (0-0.2) k/uL Hypochromasia Anisocytosis Microcytosis PT (9.0-12.0) sec INR (<1.2) APTT (22.0-30.0) sec Sodium (137-145) mmol/L Potassium (3.5-5.1) mmol/L Chloride (98-107) mmol/L Carbon Dioxide (22-30) mmol/L Anion Gap mmol/L BUN (7-17) mg/dL Creatinine (0.52-1.04) mg/dL Est GFR (CKD-EPI)AfAm (>60 ml/min/1.73 sqM) Est GFR (CKD-EPI)NonAf (>60 ml/min/1.73 sqM) Glucose (74-99) mg/dL Calcium (8.4-10.2) mg/dL Magnesium (1.6-2.3) mg/dL Total Bilirubin (0.2-1.3) mg/dL AST (14-36) U/L ALT (9-52) U/L Alkaline Phosphatase (38-126) U/L Troponin I (0.000-0.034) ng/mL Total Protein (6.3-8.2) g/dL Albumin (3.5-5.0) g/dL Amylase (30-110) U/L Lipase (23-300) U/L Urine Color Yellow Urine Appearance Clear (Clear) Urine pH 5.0 (5.0-8.0) Ur Specific Buckley 1.033 (1.001-1.035) Urine Protein Trace H (Negative) Urine Glucose (UA) Trace H (Negative) Urine Ketones Trace H (Negative) Urine Blood Negative (Negative) Urine Nitrite Negative (Negative) Urine Bilirubin Negative (Negative) Urine Urobilinogen <2.0 (<2.0) mg/dL Ur Leukocyte Esterase Small H (Negative) Urine RBC 1 (0-5) /hpf Urine WBC 5 (0-5) /hpf Ur Squamous Epith Cells 3 (0-4) /hpf Hyaline Casts 3 H (0-2) /lpf Urine Mucus Occasional H (None) /hpf Urine HCG, Qual (Not Detectd) Disposition Clinical Impression: Nausea vomiting and diarrhea, Cough, Asthma Disposition: HOME SELF-CARE Condition: Good Instructions (If sedation given, give patient instructions): Asthma (ED), Acute Nausea and Vomiting (ED), Acute Diarrhea (ED) Additional Instructions: Please take Zofran as needed for nausea. Take steroid for cough and use breathing treatment at home. If you have worsening symptoms return to the emergency department. Prescriptions: predniSONE 50 mg PO DAILY #5 tablet Ondansetron [Zofran ODT] 4 mg PO Q8HR PRN #15 tab PRN Reason: Nausea Is patient prescribed a controlled substance at d/c from ED?: No Referrals: Faith Segovia MD [Primary Care Provider] - 1-2 days Time of Disposition: 13:14
--- NOTE | 2019-07-14 11:41 | XR ---
EXAMINATION TYPE: XR chest 2V DATE OF EXAM: 07/14/2019 COMPARISON: 03/02/2019 HISTORY: Rest pain TECHNIQUE: Frontal and lateral views of the chest are obtained. FINDINGS: There is no focal air space opacity, pleural effusion, or pneumothorax seen. The cardiac silhouette size is within normal limits. The osseous structures are intact. Minimal degenerative ch anges of the thoracic spine. IMPRESSION: No acute cardiopulmonary process.
[2019-07-14 11:58] LABS: ALT 29 U/L (9-52); AST 30 U/L (14-36); African American GFR (CKD) >90 (>60 ml/min/1.73 sqM); Albumin 4.4 g/dL (3.5-5.0); Alkaline Phosphatase 77 U/L (38-126); Anion Gap 13 mmol/L; Blood Urea Nitrogen 15 mg/dL (7-17); Calcium 9.7 mg/dL (8.4-10.2); Carbon Dioxide 19 mmol/L (22-30); Chloride 107 mmol/L (98-107); Glucose 141 mg/dL (74-99); Magnesium 2.1 mg/dL (1.6-2.3); Potassium 4.9 mmol/L (3.5-5.1); Sodium 139 mmol/L (137-145); Total Bilirubin 0.4 mg/dL (0.2-1.3); Total Protein 7.2 g/dL (6.3-8.2)
[2019-07-14 12:05] VITALS: PULSE 92
[2019-07-14 12:15] LABS: INR 0.9 (<1.2); Partial Thromboplastin Time 22.5 sec (22.0-30.0); Prothrombin Time 10.1 sec (9.0-12.0)
[2019-07-14 12:37] LABS: Anisocytosis Moderate; Basophils # (A) 0.1 k/uL (0-0.2); Basophils % (A) 1 %; Eosinophils # (A) 0.5 k/uL (0-0.7); Eosinophils % (A) 4 %; HCT 41.9 % (34.0-46.0); Hypochromasia Marked; Lymphocytes # (A) 1.5 k/uL (1.0-4.8); Lymphocytes % (A) 13 %; MCH 23.2 pg (25.0-35.0); MCHC 30.9 g/dL (31.0-37.0); Mean Platelet Volume 6.9; Microcytosis Moderate; Monocytes # (A) 0.7 k/uL (0-1.0); Monocytes % (A) 6 %; Neutrophils # (A) 9.1 k/uL (1.3-7.7); Neutrophils % (A) 75 %; Platelet Count 428 k/uL (150-450); RBC 5.59 m/uL (3.80-5.40); RDW 20.5 % (11.5-15.5); WBC 12.1 k/uL (3.8-10.6)
[2019-07-14 12:44] LABS: MCV 74.9 fL (80.0-100.0)
[2019-07-14 13:17] LABS: Amylase 52 U/L (30-110)
[2019-07-14 13:26] LABS: Appearance,Urine Clear (Clear); Bilirubin,Urine Negative (Negative); Blood,Urine Negative (Negative); Color,Urine Yellow; Glucose,Urine (UA) Trace (Negative); Hyaline Casts,Urine 3 /lpf (0-2); Ketones,Urine Trace (Negative); Leukocyte Esterase,Urine Small (Negative); Mucus,Urine Occasional /hpf; Nitrite,Urine Negative (Negative); Protein,Urine Trace (Negative); RBC,Urine 1 /hpf (0-5); Specific Gravity,Urine 1.033 (1.001-1.035); Squamous Epithelial Cell,Urine 3 /hpf (0-4); Urobilinogen,Urine <2.0 mg/dL (<2.0); WBC,Urine 5 /hpf (0-5)
== END 2019-07-14 14:06 | disposition home or self-care (01) ==
LOC: EC 09:58
DX: J45.909 Unspecified asthma, uncomplicated (principal); R11.2 Nausea with vomiting, unspecified; R19.7 Diarrhea, unspecified; D72.829 Elevated white blood cell count, unspecified; E11.9 Type 2 diabetes mellitus without complications; F41.9 Anxiety disorder, unspecified; F32.9 Major depressive disorder, single episode, unspecified; G40.909 Epilepsy, unspecified, not intractable, without status epilepticus; F17.200 Nicotine dependence, unspecified, uncomplicated; Z79.84 Long term (current) use of oral hypoglycemic drugs; Z79.899 Other long term (current) drug therapy; Z91.010 Allergy to peanuts; Z91.012 Allergy to eggs; Z88.7 Allergy status to serum and vaccine
CPT/HCPCS: 36415; 94640; 93005; 80053; 82150; 83690; 83735; 84484; 85025; 85610; 85730; 81001; 81025; 71046; 99285; 96374; J2930

== ENCOUNTER 2019-09-01 11:16 | Observation (INO) | payer OTHER ==
[2019-09-01] MEDS ORDERED: ALBUTEROL NEBULIZED 2.5 MG/3 ML INHALATION STA (11:56)
[2019-09-01] MEDS ORDERED: methylPREDNISolone SOD SUCCI 125 MG/2 ML VIAL IV STA (11:56)
[2019-09-01] MEDS ORDERED: IPRATROPIUM 0.5 MG/2.5 ML NEBU INHALATION STA (11:56)
[2019-09-01] MEDS ORDERED: MAGNESIUM SULFATE-D5W PMX 1 GM in DEXTROSE/WATER 1 100ML.BAG IVPB STA (11:56)
[2019-09-01] MEDS ORDERED: SODIUM CHLORIDE 0.9% 500 ML 500 ML IV STA (11:56)
--- NOTE | 2019-09-01 12:00 | ED ---
General Adult HPI - General Chief complaint: Shortness of Breath Stated complaint: Sob Time Seen by Provider: 09/01/19 11:30 Source: patient, RN notes reviewed, old records reviewed Mode of arrival: ambulatory Limitations: no limitations - History of Present Illness Initial comments: This is a 39-year-old female presents emergency Department complaining that she is having shortness of breath since yesterday. Patient states she has a history of asthma. Patient states she also has been having quite a bit of a dry cough but no sputum production. Patient denies any fever or chill. Patient denies any abdominal pain. Patient denies nausea vomiting. Patient's headache patient denies lightheadedness or dizziness. Patient denies any numbness or weakness. Patient denies any chest pain. Patient states this feels typical of her asthma. Patient denies any leg swelling or calf tenderness. - Related Data Home Medications Medication Instructions Recorded Confirmed metFORMIN HCL [Glucophage] 1,000 mg PO BID 12/18/18 09/01/19 Albuterol Inhaler [Ventolin Hfa 1 - 2 puff INHALATION RT-Q6H PRN 03/02/19 09/01/19 Inhaler] Ferrous Sulfate [Iron (65 MG 325 mg PO DAILY 06/03/19 09/01/19 Elemental)] Albuterol Nebulized [Ventolin 2.5 mg INHALATION RT-Q4H PRN 07/14/19 09/01/19 Nebulized] Fluticasone Nasal [place] [Flonase 1 - 2 spr EA NOSTRIL DAILY PRN 09/01/19 09/01/19 Nasal [place]] Gabapentin [Neurontin] 300 mg PO AC-BID 09/01/19 09/01/19 Gabapentin [Neurontin] 600 mg PO HS 09/01/19 09/01/19 Lacosamide [Vimpat] 100 mg PO BID 09/01/19 09/01/19 Lisinopril 40 mg PO DAILY 09/01/19 09/01/19 Methocarbamol [Robaxin] 750 mg PO BID 09/01/19 09/01/19 traZODone HCL [Desyrel] 100 mg PO HS 09/01/19 09/01/19 Allergies Allergy/AdvReac Type Severity Reaction Status Date / Time egg yolk Allergy Anaphylaxis Verified 09/01/19 13:12 peanut Allergy Anaphylaxis Verified 09/01/19 13:12 influenza virus vaccine, AdvReac Unknown Verified 09/01/19 13:12 specific [Influenza Virus Vacc,Specific] Review of Systems ROS Statement: Those systems with pertinent positive or pertinent negative responses have been documented in the HPI. ROS Other: All systems not noted in ROS Statement are negative. Past Medical History Past Medical History: Asthma, Chest Pain / Angina, Diabetes Mellitus, GERD/Reflux, Hypertension, Musculoskeletal Disorder, Pneumonia, Seizure Disorder Additional Past Medical History / Comment(s): Bronchitis, NIDDM type II, seizure as a child with fever and possibly in 2013, migraines, chronic low back pain L4- L5, arrhythmia-pt does not know what type, sinus problems, seasonal allergies, UTI. History of Any Multi-Drug Resistant Organisms: MRSA Date of last positivie culture/infection: 05/11/18 MDRO Source:: BACK Past Surgical History: Cholecystectomy, Hernia Repair Additional Past Surgical History / Comment(s): 3 ABDOMINAL HERNIAS REPAIRED, colonoscopy. Past Anesthesia/Blood Transfusion Reactions: No Reported Reaction Past Psychological History: Anxiety, Depression Smoking Status: Current some day smoker Past Alcohol Use History: None Reported Past Drug Use History: None Reported - Past Family History Father Family Medical History: Cancer Additional Family Medical History / Comment(s): FATHER OF THROAT CA Mother Family Medical History: Asthma, COPD Additional Family Medical History / Comment(s): MOTHER IS STILL LIVING. General Exam - General Exam Comments Initial Comments: GENERAL: Patient is well-developed and well-nourished. Patient is nontoxic and well- hydrated and is in mild distress. ENT: Neck is soft and supple. No significant lymphadenopathy is noted. Oropharynx is clear. Moist mucous membranes. Neck has full range of motion without eliciting any pain. EYES: The sclera were anicteric and conjunctiva were pink and moist. Extraocular movements were intact and pupils were equal round and reactive to light. Eyelids were unremarkable. PULMONARY: Patient has diffuse expiratory wheezing CARDIOVASCULAR: There is a regular rate and rhythm without any murmurs gallops or rubs. ABDOMEN: Soft and nontender with normal bowel sounds. SKIN: Skin is clear with no lesions or rashes and otherwise unremarkable. NEUROLOGIC: Patient is alert and oriented x3. Cranial nerves II through XII are grossly intact. Motor and sensory are also intact. Normal speech, volume and content. Symmetrical smile. MUSCULOSKELETAL: Normal extremities with adequate strength and full range of motion. LYMPHATICS: No significant lymphadenopathy is noted PSYCHIATRIC: Normal psychiatric evaluation. Limitations: no limitations Course Vital Signs 09/01/19 09/01/19 09/01/19 11:29 11:30 12:26 Temperature 98.3 F Pulse Rate 97 Respiratory 18 20 20 Rate Blood Pressure 102/66 O2 Sat by Pulse 96 96 Oximetry 09/01/19 09/01/19 09/01/19 12:30 12:39 12:40 Temperature Pulse Rate 94 102 H 102 H Respiratory Rate Blood Pressure O2 Sat by Pulse Oximetry 09/01/19 13:03 Temperature Pulse Rate 98 Respiratory Rate Blood Pressure O2 Sat by Pulse Oximetry Medical Decision Making - Medical Decision Making EKG shows normal sinus rhythm at 93 bpm NH interval 136 QRS is 82 QT interval 368 QTC is 457. Patient's EKG shows no ST segment elevation or depression. I went back in and reevaluate the patient and she continued to wheeze diffusely though she felt somewhat better. Patient received 3 breathing treatments while in the emergency department and some steroids and she still continued to wheeze. Chest x-ray shows no acute abnormalities. Patient didn't feel comfortable going home and since she was continuing to wheeze I spoke with some physicians he agreed to admit the patient admitted the patient I wrote admitting orders. - Lab Data Result diagrams: 09/01/19 12:14 09/01/19 12:14 Lab Results 09/01/19 09/01/19 09/01/19 Range/Units 12:14 12:14 12:14 WBC 10.8 H (3.8-10.6) k/uL RBC 5.42 H (3.80-5.40) m/uL Hgb 13.4 (11.4-16.0) gm/dL Hct 43.1 (34.0-46.0) % MCV 79.6 L (80.0-100.0) fL MCH 24.7 L (25.0-35.0) pg MCHC 31.0 (31.0-37.0) g/dL RDW 17.1 H (11.5-15.5) % Plt Count 334 (150-450) k/uL Neutrophils % 67 % Lymphocytes % 13 % Monocytes % 6 % Eosinophils % 8 % Basophils % 3 % Neutrophils # 7.2 (1.3-7.7) k/uL Lymphocytes # 1.4 (1.0-4.8) k/uL Monocytes # 0.7 (0-1.0) k/uL Eosinophils # 0.9 H (0-0.7) k/uL Basophils # 0.4 H (0-0.2) k/uL Hypochromasia Slight Anisocytosis Slight Microcytosis Slight Sodium 138 (137-145) mmol/L Potassium 4.4 (3.5-5.1) mmol/L Chloride 106 (98-107) mmol/L Carbon Dioxide 22 (22-30) mmol/L Anion Gap 10 mmol/L BUN 9 (7-17) mg/dL Creatinine 0.53 (0.52-1.04) mg/dL Est GFR (CKD-EPI)AfAm >90 (>60 ml/min/1.73 sqM) Est GFR (CKD-EPI)NonAf >90 (>60 ml/min/1.73 sqM) Glucose 148 H (74-99) mg/dL Calcium 9.6 (8.4-10.2) mg/dL Magnesium 2.1 (1.6-2.3) mg/dL Total Bilirubin 0.4 (0.2-1.3) mg/dL AST 17 (14-36) U/L ALT 27 (9-52) U/L Alkaline Phosphatase 90 (38-126) U/L Troponin I <0.012 (0.000-0.034) ng/mL Total Protein 7.0 (6.3-8.2) g/dL Albumin 4.2 (3.5-5.0) g/dL Critical Care Time Critical Care Time: Yes Total Critical Care Time: 35 Disposition Clinical Impression: Acute severe exacerbation of asthma Disposition: ADMITTED IP TO THIS HOSP Referrals: Damion Dhaliwal [Primary Care Provider] - 1-2 days Time of Disposition: 13:42
--- NOTE | 2019-09-01 12:21 | XR ---
EXAMINATION TYPE: XR chest 2V DATE OF EXAM: 09/01/2019 COMPARISON: NONE TECHNIQUE: PA and lateral views submitted. HISTORY: Difficulty breathing FINDINGS: The lungs are clear and there is no pneumothorax, pleural effusion, or focal pneumonia. No overt fa ilure. Heart size normal. Hypertrophic change of the spine. Mild hyperinflation. IMPRESSION: 1. No acute process.
[2019-09-01 12:31] LABS: Anisocytosis Slight; Basophils # (A) 0.4 k/uL (0-0.2); Basophils % (A) 3 %; Eosinophils # (A) 0.9 k/uL (0-0.7); Eosinophils % (A) 8 %; HCT 43.1 % (34.0-46.0); HGB 13.4 gm/dL (11.4-16.0); Hypochromasia Slight; Lymphocytes # (A) 1.4 k/uL (1.0-4.8); Lymphocytes % (A) 13 %; MCH 24.7 pg (25.0-35.0); MCV 79.6 fL (80.0-100.0); Mean Platelet Volume 6.2; Microcytosis Slight; Monocytes # (A) 0.7 k/uL (0-1.0); Monocytes % (A) 6 %; Neutrophils # (A) 7.2 k/uL (1.3-7.7); Neutrophils % (A) 67 %; Platelet Count 334 k/uL (150-450); RBC 5.42 m/uL (3.80-5.40); RDW 17.1 % (11.5-15.5); WBC 10.8 k/uL (3.8-10.6)
[2019-09-01 12:40] LABS: ALT 27 U/L (9-52); AST 17 U/L (14-36); African American GFR (CKD) >90 (>60 ml/min/1.73 sqM); Albumin 4.2 g/dL (3.5-5.0); Alkaline Phosphatase 90 U/L (38-126); Anion Gap 10 mmol/L; Blood Urea Nitrogen 9 mg/dL (7-17); Calcium 9.6 mg/dL (8.4-10.2); Carbon Dioxide 22 mmol/L (22-30); Chloride 106 mmol/L (98-107); Glucose 148 mg/dL (74-99); Magnesium 2.1 mg/dL (1.6-2.3); Non-African American GFR(CKD) >90 (>60 ml/min/1.73 sqM); Potassium 4.4 mmol/L (3.5-5.1); Sodium 138 mmol/L (137-145); Total Bilirubin 0.4 mg/dL (0.2-1.3)
[2019-09-01] MEDS ORDERED: IPRATROPIUM-ALBUTEROL 3 ML NEB INHALATION PRN (13:44)
[2019-09-01] MEDS ORDERED: ACETAMINOPHEN TAB 325 MG TAB PO PRN (16:16)
[2019-09-01] MEDS ORDERED: ONDANSETRON 4 MG/2 ML VIAL IVP PRN (16:16)
[2019-09-01] MEDS ORDERED: DOCUSATE 100 MG CAP PO PRN (16:16)
[2019-09-01] MEDS ORDERED: NALOXONE 0.4 MG/ML 1 ML VIAL IV PRN (16:16)
--- NOTE | 2019-09-01 16:16 | P.HPIM ---
History of Present Illness H&P Date: 09/01/19 Chief Complaint: Shortness of breath 39-year-old female with PMH of COPD, seizure disorder, hypertension, diabetes mellitus presents the ED for shortness of breath and wheezing. Patient reports upper respiratory infection characterized by cough productive of yellow sputum, rhinorrhea and itchy eyes that has been ongoing for the past 3-4 days. Patient reports attempting nebulized breathing treatments at home but states that the effects of the treatment only lasted for 30-45 minutes. When patient realized that she wasn't getting better, this prompted her to come to the ED. Patient reports hospitalization for asthma at least twice a year, usually during changes in temperature. Patient reports a history of seizure disorder, last seizure was 3-1/2 years ago. She denies any headache, lower extremity edema, nausea or vomiting, fever or chills, chest pain, palpitations, changes in urination or bowel habits. No changes in appetite or weight. Patient denies any dizziness, numbness/weakness/tingling of the extremities. Patient reports quitting smoking 2 months ago. She denies any alcohol or illicit drug use. In the ED, patient was tachycardic to 106. Vital signs were otherwise stable. CBC showed leukocytosis of 10.8. RBC cell masses increased to 5.42 along with microcytosis of 79.6. CMP was unremarkable. Troponin was less than 0.012, EKG showing no rmal sinus rhythm. Chest x-ray is unremarkable. Patient is admitted for COPD exacerbation. Review of Systems Pertinent positives and negatives as discussed in HPI, a complete review of systems was performed and all other systems are negative. Past Medical History Past Medical History: Asthma, Chest Pain / Angina, Diabetes Mellitus, GERD/Reflux, Hypertension, Musculoskeletal Disorder, Pneumonia, Seizure Disorder Additional Past Medical History / Comment(s): Bronchitis, NIDDM type II, seizure as a child with fever and possibly in 2013, migraines, chronic low back pain L4- L5, murmur, sinus problems, seasonal allergies, UTI, last admission pt had enlarged uterus/fibroids. History of Any Multi-Drug Resistant Organisms: MRSA Date of last positivie culture/infection: 05/11/18 MDRO Source:: BACK Past Surgical History: Cholecystectomy, Hernia Repair Additional Past Surgical History / Comment(s): 3 ABDOMINAL HERNIAS REPAIRED, colonoscopy, pain injections. Past Anesthesia/Blood Transfusion Reactions: No Reported Reaction Smoking Status: Former smoker - Past Family History Father Family Medical History: Cancer Additional Family Medical History / Comment(s): FATHER OF THROAT [place] Mother Family Medical History: Asthma, COPD Additional Family Medical History / Comment(s): MOTHER IS STILL LIVING. Medications and Allergies Home Medications Medication Instructions Recorded Confirmed Type RX: metFORMIN HCL [Glucophage] 1,000 mg PO BID 12/18/18 09/01/19 History RX: Albuterol Inhaler [Ventolin 1 - 2 puff INHALATION RT-Q6H PRN 03/02/19 09/01/19 History Hfa Inhaler] RX: Ferrous Sulfate [Iron (65 MG 325 mg PO DAILY 06/03/19 09/01/19 History Elemental)] Albuterol Nebulized [Ventolin 2.5 mg INHALATION RT-Q4H PRN 07/14/19 09/01/19 History Nebulized] Fluticasone Nasal [place] [Flonase 1 - 2 spr EA NOSTRIL DAILY PRN 09/01/19 09/01/19 History Nasal [place]] Gabapentin [Neurontin] 300 mg PO AC-BID 09/01/19 09/01/19 History Gabapentin [Neurontin] 600 mg PO HS 09/01/19 09/01/19 History Lacosamide [Vimpat] 100 mg PO BID 09/01/19 09/01/19 History Methocarbamol [Robaxin] 750 mg PO BID 09/01/19 09/01/19 History RX: Lisinopril 40 mg PO DAILY 09/01/19 09/01/19 History traZODone HCL [Desyrel] 100 mg PO HS 09/01/19 09/01/19 History Allergies Allergy/AdvReac Type Severity Reaction Status Date / Time egg yolk Allergy Anaphylaxis Verified 09/01/19 13:12 peanut Allergy Anaphylaxis Verified 09/01/19 13:12 influenza virus vaccine, AdvReac Unknown Verified 09/01/19 13:12 specific [Influenza Virus Vacc,Specific] Physical Exam Vitals: Vital Signs Temp Pulse Pulse Resp BP BP Pulse Ox 09/01/19 15:53 16 09/01/19 15:30 98.3 F 99 16 120/81 96 09/01/19 15:00 101 H 20 123/69 97 09/01/19 14:00 96 20 112/76 96 09/01/19 13:03 98 09/01/19 13:00 98 16 130/72 96 09/01/19 12:40 102 H 09/01/19 12:39 102 H 09/01/19 12:30 94 09/01/19 12:26 20 96 09/01/19 12:24 106 H 19 95 09/01/19 11:30 20 09/01/19 11:29 98.3 F 97 18 102/66 96 Intake and Output 09/01/19 09/01/19 09/01/19 06:59 14:59 22:59 Other: Weight 120.202 kg General: [non toxic], [no distress], [appears at stated age] Derm: [warm], [dry] Head: [atraumatic], [normocephalic], [symmetric] Eyes: [EOMI], [no lid lag], [anicteric sclera] Mouth: [no lip lesion], [mucus membranes moist] Cardiovascular: [S1S2 reg], [tachycardia], [positive DP pulse bilateral], Lungs: [Diffuse wheezing bilateral], [no rhonchi, no rales] , [no accessory muscle use] Abdominal: [soft], [ nontender to palpation], [no guarding], [no appreciable organomegaly] Ext: [no gross muscle atrophy], [no edema], [no contractures] Neuro: [ CN II-XI grossly intact], [no focal neuro deficits] Psych: [Alert], [oriented], [appropriate affect] Results CBC & Chem 7: 09/01/19 12:14 09/01/19 12:14 Labs: Abnormal Lab Results - Last 24 Hours (Table) 09/01/19 09/01/19 Range/Units 12:14 12:14 WBC 10.8 H (3.8-10.6) k/uL RBC 5.42 H (3.80-5.40) m/uL MCV 79.6 L (80.0-100.0) fL MCH 24.7 L (25.0-35.0) pg RDW 17.1 H (11.5-15.5) % Eosinophils # 0.9 H (0-0.7) k/uL Basophils # 0.4 H (0-0.2) k/uL Glucose 148 H (74-99) mg/dL Thrombosis Risk Factor Assmnt - Choose All That Apply Any of the Below Risk Factors Present?: Yes Each Factor Represents 1 point: Obesity (BMI >25) Other Risk Factors: No Other congenital or acquired thrombophilia - If yes, enter type in comment: No Thrombosis Risk Factor Assessment Total Risk Factor Score: 1 Thrombosis Risk Factor Assessment Level: Low Risk Assessment and Plan Assessment: Acute COPD exacerbation likely due to viral URI Chest pain likely from above process Leukocytosis Microcytosis Chronic conditions: Seizure disorder, hypertension, diabetes mellitus Chest x-ray negative. Plans: Start Solu-Medrol. DuoNeb scheduled and as needed for shortness of breath and wheezing. O2 per NC to maintain O2 saturation greater than 92%. Troponin less than 0.012 with EKG showing normal sinus rhythm. Described as chest tightness likely related to above process. Unlikely ACS. Plans: Trend troponin/EKG to rule out ACS. Leukocytosis of 10.8. Patient is afebrile. Possibly related to viral URI. Plans: Repeat CBC in the morning. Continue to monitor. RBC mass 5.42. Microcytosis of 79.6. Possibly related to thalassemia? Plans: Repeat CBC in the morning. Continue to monitor. We will resume home medication for seizure disorder. Blood pressure is currently under control, resume antihypertensive medication. Will start sliding scale for diabetes along with regular Accu-Cheks and hypoglycemic precautions. DVT prophylaxis: [SCD] Discussed with: [Patient] Anticipated discharge: [1-2 days] Anticipated discharge place: [Home] A total of [35] minutes was spent on the care of this complex patient more than 50% of the time was spent in counseling and care coordination. Patient names her abhijeet Dai decision-maker in the case that she can't make decisions for herself. Patient reiterates wanting to remain full code at this time.
[2019-09-01] MEDS: HYDROcodone/APAP 5-325MG 1 EACH TAB PO PRN ×2 (17:19→21:47)
[2019-09-01] MEDS: GABAPENTIN 300 MG CAP PO SCH ×2 (17:20→21:47)
[2019-09-01 17:38] LABS: Glucose,Whole Blood 252 mg/dL (75-99)
[2019-09-01] MEDS: INSULIN ASPART (NovoLOG) 100 UNIT/ML VIAL SQ SCH ×2 (18:09→21:46)
[2019-09-01] MEDS: methylPREDNISolone SOD SUCCI 125 MG/2 ML VIAL IV SCH (18:12)
[2019-09-01] MEDS: MORPHINE SULFATE 2 MG/ML SYRINGE IV PRN (18:16)
[2019-09-01] MEDS: IPRATROPIUM-ALBUTEROL 3 ML NEB INHALATION SCH ×2 (19:28→23:08)
[2019-09-01 21:32] LABS: Glucose,Whole Blood 296 mg/dL (75-99)
[2019-09-01] MEDS: METHOCARBAMOL 750 MG TAB PO SCH (21:47)
[2019-09-01] MEDS: traZODone HCL 100 MG TAB PO SCH (21:47)
[2019-09-01] MEDS: LACOSAMIDE 50 MG TABLET PO SCH (21:54)
[2019-09-02] MEDS: methylPREDNISolone SOD SUCCI 125 MG/2 ML VIAL IV SCH ×4 (00:17→18:01)
[2019-09-02] MEDS: MORPHINE SULFATE 2 MG/ML SYRINGE IV PRN ×4 (00:18→21:57)
[2019-09-02] MEDS: IPRATROPIUM-ALBUTEROL 3 ML NEB INHALATION SCH ×6 (03:19→20:58)
[2019-09-02 06:27] LABS: Glucose,Whole Blood 311 mg/dL (75-99)
[2019-09-02] MEDS: GABAPENTIN 300 MG CAP PO SCH ×3 (06:34→20:51)
[2019-09-02] MEDS: INSULIN ASPART (NovoLOG) 100 UNIT/ML VIAL SQ SCH ×4 (06:35→20:57)
[2019-09-02] MEDS ORDERED: guaiFENesin SYRUP 100MG/5ML 200 MG/10 ML CUP PO PRN (06:42)
[2019-09-02 08:59] LABS: Anisocytosis Slight; Basophils # (A) 0.1 k/uL (0-0.2); Basophils % (A) 0 %; Eosinophils # (A) 0.1 k/uL (0-0.7); Eosinophils % (A) 1 %; HGB 12.9 gm/dL (11.4-16.0); Hypochromasia Slight; Lymphocytes # (A) 0.8 k/uL (1.0-4.8); Lymphocytes % (A) 5 %; MCH 25.2 pg (25.0-35.0); MCHC 31.4 g/dL (31.0-37.0); MCV 80.3 fL (80.0-100.0); Mean Platelet Volume 6.2; Microcytosis Slight; Monocytes # (A) 0.4 k/uL (0-1.0); Monocytes % (A) 2 %; Neutrophils # (A) 13.4 k/uL (1.3-7.7); Neutrophils % (A) 91 %; Platelet Count 337 k/uL (150-450); RBC 5.11 m/uL (3.80-5.40); RDW 17.4 % (11.5-15.5); WBC 14.8 k/uL (3.8-10.6)
[2019-09-02] MEDS: LISINOPRIL 20 MG TAB PO SCH (09:02)
[2019-09-02] MEDS: FERROUS SULFATE 325 MG TAB PO SCH (09:03)
[2019-09-02] MEDS: METHOCARBAMOL 750 MG TAB PO SCH ×2 (09:03→20:51)
[2019-09-02] MEDS: LACOSAMIDE 50 MG TABLET PO SCH ×2 (09:03→20:50)
[2019-09-02] MEDS: HYDROcodone/APAP 5-325MG 1 EACH TAB PO PRN ×3 (09:09→20:58)
[2019-09-02] MEDS: AZITHROMYCIN 500 MG TAB PO SCH (10:54)
[2019-09-02] MEDS: guaiFENesin 600 MG TABLET.ER PO SCH (10:54)
--- NOTE | 2019-09-02 10:59 | P.PN ---
Subjective Progress Note Date: 09/02/19 Principal diagnosis: COPD COPD Patient was seen and examined. No acute events overnight. Patient reports slight improvement in her breathing but continues to complain shortness of breath and wheezing. She does complain of chest tightness. Also complains of cough productive of yellow sputum. She denies any nausea or vomiting. No fever or chills. Objective - Vital Signs Vital signs: Vital Signs Temp 98.1 F 09/02/19 05:00 Pulse 100 09/02/19 09:19 Resp 18 09/02/19 09:09 BP 105/66 09/02/19 09:09 Pulse Ox 97 09/02/19 09:09 Intake & Output 09/01/19 09/02/19 09/02/19 18:59 06:59 18:59 Intake Total 500 240 Balance 500 240 Weight 120.202 kg Intake: Oral 500 240 Other: Voiding Method Toilet # Voids 2 1 # Bowel Movements 1 - Exam General: [non toxic], [no distress], [appears at stated age] Derm: [warm], [dry] Head: [atraumatic], [normocephalic], [symmetric] Eyes: [EOMI], [no lid lag], [anicteric sclera] Mouth: [no lip lesion], [mucus membranes moist] Cardiovascular: [S1S2 reg], [tachycardia], [positive DP pulse bilateral], Lungs: [Diffuse wheezing bilateral], [no rhonchi, no rales] , [no accessory muscle use] Abdominal: [soft], [ nontender to palpation], [no guarding], [no appreciable organomegaly] Ext: [no gross muscle atrophy], [no edema], [no contractures] Neuro: [no focal neuro deficits] Psych: [Alert], [oriented], [appropriate affect] - Labs CBC & Chem 7: 09/02/19 08:47 09/01/19 12:14 Labs: Abnormal Lab Results - Last 24 Hours (Table) 09/01/19 09/01/19 09/01/19 Range/Units 12:14 12:14 17:35 WBC 10.8 H (3.8-10.6) k/uL RBC 5.42 H (3.80-5.40) m/uL MCV 79.6 L (80.0-100.0) fL MCH 24.7 L (25.0-35.0) pg RDW 17.1 H (11.5-15.5) % Neutrophils # (1.3-7.7) k/uL Lymphocytes # (1.0-4.8) k/uL Eosinophils # 0.9 H (0-0.7) k/uL Basophils # 0.4 H (0-0.2) k/uL Glucose 148 H (74-99) mg/dL POC Glucose (mg/dL) 252 H (75-99) mg/dL 09/01/19 09/02/19 09/02/19 Range/Units 21:29 06:26 08:47 WBC 14.8 H (3.8-10.6) k/uL RBC (3.80-5.40) m/uL MCV (80.0-100.0) fL MCH (25.0-35.0) pg RDW 17.4 H (11.5-15.5) % Neutrophils # 13.4 H (1.3-7.7) k/uL Lymphocytes # 0.8 L (1.0-4.8) k/uL Eosinophils # (0-0.7) k/uL Basophils # (0-0.2) k/uL Glucose (74-99) mg/dL POC Glucose (mg/dL) 296 H 311 H (75-99) mg/dL Assessment and Plan Assessment: Acute COPD exacerbation likely due to viral URI Chest pain likely from above process Leukocytosis Resolved: Microcytosis Chronic conditions: Seizure disorder, hypertension, diabetes mellitus Chest x-ray negative. Plans: Start Solu-Medrol. DuoNeb scheduled and as needed for shortness of breath and wheezing. Add formoterol nebulized treatments twice a day. Add Mucinex. 3 day course of azithromycin. O2 per NC to maintain O2 saturation greater than 92%. Troponin less than 0.012 2 with EKG showing normal sinus rhythm. Described as chest tightness likely related to above process. Unlikely ACS. Plans: ACS ruled out. Leukocytosis of 10.8-14.8. Patient is afebrile. Possibly related to viral URI or steroid use. Plans: Continue to monitor. We will resume home medication for seizure disorder. Blood pressure is currently under control, resume antihypertensive medication. Will start sliding scale for diabetes along with regular Accu-Cheks and hypoglycemic precautions. [Patient continues to have chest tightness with shortness of breath and wheezing. She is pending clinical improvement. Likely DC in 1-2 days.]
[2019-09-02 12:15] LABS: Glucose,Whole Blood 277 mg/dL (75-99)
[2019-09-02] MEDS: FORMOTEROL FUMARATE 20 MCG/2 ML NEBU INHALATION SCH ×2 (13:10→20:58)
[2019-09-02 14:33] VITALS: BMI 46.9
[2019-09-02 17:21] LABS: Glucose,Whole Blood 300 mg/dL (75-99)
[2019-09-02 20:50] LABS: Glucose,Whole Blood 291 mg/dL (75-99)
[2019-09-02] MEDS: traZODone HCL 100 MG TAB PO SCH (20:51)
[2019-09-03] MEDS: methylPREDNISolone SOD SUCCI 125 MG/2 ML VIAL IV SCH ×3 (00:05→12:59)
[2019-09-03] MEDS: IPRATROPIUM-ALBUTEROL 3 ML NEB INHALATION SCH ×4 (01:03→12:54)
[2019-09-03] MEDS: MORPHINE SULFATE 2 MG/ML SYRINGE IV PRN (06:18)
[2019-09-03 06:31] LABS: Glucose,Whole Blood 292 mg/dL (75-99)
[2019-09-03] MEDS: INSULIN ASPART (NovoLOG) 100 UNIT/ML VIAL SQ SCH ×4 (06:46→12:24)
[2019-09-03] MEDS: GABAPENTIN 300 MG CAP PO SCH (06:47)
[2019-09-03] MEDS: LISINOPRIL 20 MG TAB PO SCH (08:39)
[2019-09-03] MEDS: AZITHROMYCIN 500 MG TAB PO SCH (08:39)
[2019-09-03] MEDS: LACOSAMIDE 50 MG TABLET PO SCH (08:39)
[2019-09-03] MEDS: FERROUS SULFATE 325 MG TAB PO SCH (08:40)
[2019-09-03] MEDS: guaiFENesin 600 MG TABLET.ER PO SCH (08:40)
[2019-09-03] MEDS: METHOCARBAMOL 750 MG TAB PO SCH (08:40)
[2019-09-03] MEDS: FORMOTEROL FUMARATE 20 MCG/2 ML NEBU INHALATION SCH (08:52)
[2019-09-03] MEDS: HYDROcodone/APAP 5-325MG 1 EACH TAB PO PRN (10:28)
[2019-09-03 12:20] LABS: Glucose,Whole Blood 388 mg/dL (75-99)
--- NOTE | 2019-09-03 12:23 | P.DS ---
Providers Date of admission: 09/01/19 14:10 Expected date of discharge: 09/03/19 Attending physician: Eligio Marrero MD Primary care physician: Damion Dhaliwal Hospital Course: Discharge diagnosis Acute COPD exacerbation Viral URI Steroid-induced leukocytosis Seizure disorder Type 2 diabetes Essential hypertension Hospital course The patient is a 39-year-old female is admitted with acute COPD exacerbation after presenting to the ER with shortness of breath and wheezing and complaining of productive cough runny nose. The patient identify triggers and seasonal changes and reports to being hospitalized for COPD flares at least twice over the winter. She was started on systemic steroids as IV Solu-Medrol, bronchodilator DuoNeb breathing treatments scheduled and as needed. Chest x-ray was negative for any acute pathology, she was also started on empiric IV antibiotics with Rocephin and azithromycin. She was noted to have a leukocytosis of 10.8 but remained afebrile, was thought that her white count was elevated secondary to steroids. She also treated supportively with Mucinex and inhale Perforomist. With treatment the patient's condition improved she had normal saturations on room air and reported that her skin chest tightness and wheezing was much improved and requested to go home. Patient was subsequent discharged home in stable condition with the prednisone taper, a three-day course of antibiotics with azithromycin Focused exam Respiratory: Markedly Wheezes with good aeration, unlabored breathing on room air Patient Condition at Discharge: Good Plan - Discharge Summary Discharge Rx Participant: No New Discharge Prescriptions: New guaiFENesin [Mucinex] 1,200 mg PO Q12HR #10 tablet.er Azithromycin [Zithromax] 500 mg PO Q24H #3 tab Continue metFORMIN HCL [Glucophage] 1,000 mg PO BID Ferrous Sulfate [Iron (65 MG Elemental)] 325 mg PO DAILY traZODone HCL [Desyrel] 100 mg PO HS Methocarbamol [Robaxin] 750 mg PO BID Lisinopril 40 mg PO DAILY Fluticasone Nasal [place] [Flonase Nasal [place]] 1 - 2 spr EA NOSTRIL DAILY PRN PRN Reason: Congestion Lacosamide [Vimpat] 100 mg PO BID Gabapentin [Neurontin] 300 mg PO AC-BID Gabapentin [Neurontin] 600 mg PO HS Albuterol Nebulized [Ventolin Nebulized] 2.5 mg INHALATION RT-Q4H PRN #30 neb PRN Reason: Shortness Of Breath Changed Albuterol Inhaler [Ventolin Hfa Inhaler] 2 - 4 puff INHALATION RT-Q6H PRN #1 puff PRN Reason: SOA/wheezes/cough Discharge Medication List metFORMIN HCL [Glucophage] 1,000 mg PO BID 12/18/18 [History] Ferrous Sulfate [Iron (65 MG Elemental)] 325 mg PO DAILY 06/03/19 [History] Fluticasone Nasal [place] [Flonase Nasal [place]] 1 - 2 spr EA NOSTRIL DAILY PRN 09/01/19 [History] Gabapentin [Neurontin] 300 mg PO AC-BID 09/01/19 [History] Gabapentin [Neurontin] 600 mg PO HS 09/01/19 [History] Lacosamide [Vimpat] 100 mg PO BID 09/01/19 [History] Lisinopril 40 mg PO DAILY 09/01/19 [History] Methocarbamol [Robaxin] 750 mg PO BID 09/01/19 [History] traZODone HCL [Desyrel] 100 mg PO HS 09/01/19 [History] Albuterol Inhaler [Ventolin Hfa Inhaler] 2 - 4 puff INHALATION RT-Q6H PRN #1 puff 09/03/19 [Rx] Albuterol Nebulized [Ventolin Nebulized] 2.5 mg INHALATION RT-Q4H PRN #30 neb 09/03/19 [Rx] Azithromycin [Zithromax] 500 mg PO Q24H #3 tab 09/03/19 [Rx] guaiFENesin [Mucinex] 1,200 mg PO Q12HR #10 tablet.er 09/03/19 [Rx] Follow up Appointment(s)/Referral(s): Damion Dhaliwal [Primary Care Provider] - 1-2 days
[2019-09-03 12:53] VITALS: BP 125/81; RESP 20; TEMP 98.7
[2019-09-03 12:56] VITALS: PULSE 88
== END 2019-09-03 13:34 | disposition home or self-care (01) ==
LOC: EC 11:16 → 6PED 14:10
PROVIDERS: ADMIT Family Medicine; ATTEND Family Medicine
DX: J44.1 Chronic obstructive pulmonary disease with (acute) exacerbation (principal); J06.9 Acute upper respiratory infection, unspecified; D72.829 Elevated white blood cell count, unspecified; T38.0X5A Adverse effect of glucocorticoids and synthetic analogues, initial encounter; G40.909 Epilepsy, unspecified, not intractable, without status epilepticus; E11.9 Type 2 diabetes mellitus without complications; I10 Essential (primary) hypertension; G43.909 Migraine, unspecified, not intractable, without status migrainosus; G89.29 Other chronic pain; M54.5 Low back pain; J30.2 Other seasonal allergic rhinitis; F41.9 Anxiety disorder, unspecified; F32.9 Major depressive disorder, single episode, unspecified; R00.0 Tachycardia, unspecified; R71.8 Other abnormality of red blood cells; E66.9 Obesity, unspecified; Z68.42 Body mass index [BMI] 45.0-49.9, adult; R07.89 Other chest pain; K21.9 Gastro-esophageal reflux disease without esophagitis; I49.9 Cardiac arrhythmia, unspecified; Z79.84 Long term (current) use of oral hypoglycemic drugs; Z79.899 Other long term (current) drug therapy; Z88.7 Allergy status to serum and vaccine; Z91.012 Allergy to eggs; Z91.010 Allergy to peanuts; Z87.01 Personal history of pneumonia (recurrent); Z86.14 Personal history of Methicillin resistant Staphylococcus aureus infection; Z87.440 Personal history of urinary (tract) infections; Z87.891 Personal history of nicotine dependence; Z90.49 Acquired absence of other specified parts of digestive tract; Z80.0 Family history of malignant neoplasm of digestive organs; Z82.5 Family history of asthma and other chronic lower respiratory diseases
CPT/HCPCS: 96375 ×2; 96376 ×3; 96365; 96366; 99291; 36415; 94640 ×6; 94760; 93005; 80053; 83735; 84484; 85025 ×2; 71046; G0378 ×3; J2930 ×3; J2270 ×3; J3475

== ENCOUNTER → 2019-11-04 | Outpatient (CLI) | payer OTHER ==
[2019-11-04 12:19] VITALS: BP 123/82; PULSE 96; RESP 18
--- NOTE | 2019-11-04 14:42 | P.CON ---
Consult Note - . Consult date: 11/04/19 Assessment/Plan:: Pain mManagement Consultation 39-year-old female who presents as a new patient to the [facility] pain clinic. She has a chief complaint of low back pain, and left hip pain. She was a patient of the pain clinic and there he performed 2 series of epidural steroid injections targeting right L4-L5 interspace. She does have an MRI that shows right lateral recess disc bulge with impingement. She's had resolution of her radicular pain in the right lower extremity however she has complaints of residual axial low back pain on the right greater than left. She also has complaints of left upper buttock pain radiating to her groin and anterior thigh up to the knee. She's been noticing difficulty with ambulation walking with antalgic gait favoring her right side. Her VAS today ranges between a 3-7 out of 10 in severity depending on activity level. She describes pain in the left hip as an aching, throbbing, sharp pain worse with ambulation and activity and improved with rest. Regarding her low back pain mostly on the right she states is worse with activity, standing, and laying flat. She's been having extreme difficulty with sleep as of late secondary to her low back pain. Patient has tried [id number] anti- inflammatories, naproxen 500 mg, meloxicam without any benefit. She has been tried on Medrol Dosepaks for severe flareups that have provided her benefit. She has also participated in physical therapy for her low back and her left hip which provided her with minimal relief ROS: In addition to above, 13-point review of systems is also negative for chest pain, shortness of breath, changes in vision, changes in hearing, new onset weakness, abdominal pain, diarrhea, extreme fatigue, malaise, fever, skin changes, homicidal or suicidal ideation, or bowel or bladder incontinence. Phyiscal Exam: Vital Signs: Reviewed in EMR Gen: WDWN, AAOx3, NAD, obese HEENT: NCAT, EOMI, hearing grossly normal Pulm: resp unlabored CVS: Regular rate and rhythm no edema noted Neck: supple, trachea midline ROM in flexion lumbar spine: Pain with forward flexion greater than 45 ROM in extension lumbar spine: Pain with extension and greater than -10 Lumbar paravertebral tenderness: + + Right L4-L5 Facet loading: + + Bilateral right greater than left SI joint tenderness: mildly tender to palpation Straight leg raise: Negative Left hip: Joint stability appreciated. Pain with flexion and external rotation. Hip flexion limited secondary to pain when compared to the right. Neuro: 5 out of 5 muscle strength upper extremities bilateral. 5 out of 5 muscle strength in bilateral lower extremities with the exception of quadriceps extension which is 4+ on the right. Reflexes equal and symmetrical upper and lower extremities in the biceps, brachioradialis, and patella. Imaging: MRI lumbar spine: Degenerative disc disease at L4 5 and L5-S1 with disc bulging. At L4 5 there is right lateral recess stenosis. There is degenerative facet joint arthropathy at L5-S1. Assessment: 1. Lumbar radiculopathy 2. Lumbar degenerative disc disease 3. Lumbar spondylosis without myelopathy Plan: 1. Explanation: Diagnoses, prognoses, and multiple treatment options including but not limited to physical therapy, interventional therapies, adjuvant medical therapies, narcotic medication therapies, and surgery were discussed with the patient and all questions were answered to the patient's satisfaction. 2. Opioid agreement: Not signed 3. Counseling: The patient was counseled extensively on BODY MASS INDEX, EXERCISE. Specifically, the patient was instructed regarding the importance of smoking cessation, obesity, and exercise in the context of both chronic pain and overall health. 4. Procedures: Therapeutic Bilateral lumbar facet joint injections at L4-L5 and L5-S1 5. Consultations: None 6. Investigations: Maps reviewed and appropriate, we'll order an x-ray of left hip to assess for any gross anatomical pathology 7. Medications: Medrol Dosepak 8. Disposition: Considering patient's age, I don't believe she is a candidate for radiofrequency ablation. I believe that direct facet joint injections could provide her with adequate relief and also be used as a diagnostic tool. We discussed the risks and benefits of proceeding with facet joint injections versus radio frequency ablation. Patient wishes to proceed with the direct fac et joint injection. I also believe the patient has some degree of left hip pathology. We'll start with basic films to evaluate, she may require an MRI to assess for potential labral tear which could be challenging given her current insurance. f/u for procedure as scheduled, and review left hip x-ray. PQRS measures: 1-Patient's medications are documented in the chart. 2-Tobacco use is negative 3-Patient has not had a pneumococcal vaccine. 4-Advanced care planning discussed, patient unable to give. 5-Opioid contract notsigned with the patient. 6-Pain positive, follow-up visit or procedure scheduled 7-Patient's blood pressure measured and documented, and WNL. 8-Patient's weight was measured, and body mass index ABOVE the normal limits, and counseling was done. Patient instructed to follow up with PCP. 9-Patient WAS NOT identified as an unhealthy alcohol user.
== END | disposition home or self-care (01) ==
LOC: PNWHC3 11:38
PROVIDERS: ATTEND Anesthesiology
DX: M51.16 Intervertebral disc disorders with radiculopathy, lumbar region (principal); M47.26 Other spondylosis with radiculopathy, lumbar region; Z79.891 Long term (current) use of opiate analgesic; Z79.899 Other long term (current) drug therapy
CPT/HCPCS: 99211

== ENCOUNTER 2019-11-12 09:45 | Day surgery (SDC) | payer OTHER ==
[2019-11-10 12:41] VITALS: BMI 40.7
[2019-11-12 10:36] VITALS: RESP 18; TEMP 96.7
[2019-11-12] MEDS ORDERED: LIDOCAINE 1% 20 ML VIAL (10MG/ML) FOR IV START INTRADERMA ONE (10:38)
[2019-11-12 10:40] LABS: Glucose,Whole Blood 129 mg/dL (75-99)
[2019-11-12] MEDS ORDERED: methylPREDNISolone ACETATE 40 MG/ML 1 ML VIAL ONE (11:11)
[2019-11-12] MEDS ORDERED: MIDAZOLAM 2 MG/2 ML VIAL ONE (11:11)
[2019-11-12] MEDS ORDERED: fentaNYL (PF) 50 MCG/ML 2 ML AMP ONE (11:11)
[2019-11-12] MEDS ORDERED: IOPAMIDOL M200 10 ML VIAL ONE (11:11)
[2019-11-12] MEDS ORDERED: ROPIVACAINE 5MG/ML 20ML VIAL ONE (11:11)
[2019-11-12] MEDS ORDERED: TRIAMCINOLONE ACETONIDE 40 MG/ML 1 ML VIAL ONE (11:11)
[2019-11-12] MEDS ORDERED: IV FLUID CONTINUATION 1,000 ML IV ONE ×2 (11:33)
--- NOTE | 2019-11-12 11:37 | P.PCN ---
Date of Procedure: 11/12/19 Procedure(s) Performed: PREOPERATIVE DIAGNOSIS: Lumbar Spondylosis with Facet Arthropathy.without myel opathy POSTOPERATIVE DIAGNOSIS: Lumbar Spondylosis, Facet Arthropathy. Without myelopathy PROCEDURES: Bilateral facet joint injections at L4-5 and L5-S1 with fluoroscopic guidance ANESTHESIA: Local with 1% lidocaine; IV sedation with Versed, sedation time 13 minutes Fluoroscopy was used for the procedure and images were saved in the radiology portion of the chart. EBL: Minimal PROCEDURE INDICATION: The patient with low back pain secondary to lumbar facet arthropathy unresponsive to more conservative treatments. PROCEDURE DESCRIPTION / TECHNIQUE: The patient was seen and identified in the preoperative area. Risks, benefits, complications, and alternatives were discussed with the patient, the patient agreed to proceed with the procedure and signed the consent. IV was started. Vital signs remained stable throughout the procedure. Patient was taken to the OR and time out was completed. The patient was placed in the prone position on the procedure table. A pillow was placed under the patients abdomen to increase the lumbar interlaminar space. The lumbar area was prepped and draped in the usual sterile fashion. A timeout was performed. Vital signs were closely monitored during the procedure. Conscious sedation was used during the procedure to decrease patients anxiety. Using AP fluoroscopy, the middle of the pedicles at above-mentioned levels was identified, marked, and localized with 1% lidocaine 0.2 ml at each level for skin and subcutaneous infiltration . Subsequently, a 22 G 3.5" Quinke spinal needle was advanced guided by AP and oblique fluoroscopy into the above- mentioned facet joints. 0.2 mL of Isovue-200 was injected at each level, revealing intra-articular facet spread. Subsequently, 0.75 mL of treatment solution was injected into each joint. Treatment solution consisted of Kenalog 40 mg and 2 mL of ropivacaine 0.5%. COMPLICATIONS: No acute complications. DISPOSITION / PLANS: The patient was placed in a supine position and transferred to the recovery area in a stable condition for observation and was discharged from the recovery room after meeting discharge criteria. Home discharge instructions given to the patient by the staff. The patient will follow up for repeat procedure in 4 weeks
[2019-11-12 11:49] LABS: Glucose,Whole Blood 126 mg/dL (75-99)
[2019-11-12 11:52] VITALS: BP 128/74; PULSE 86
--- NOTE | 2019-11-12 11:54 | FL ---
Fluoroscopy HISTORY: Pain 9 seconds fluoroscopy time supplied to the referring clinician. 3 intraoperative C-arm images docume nt the procedure. See dictated report from anesthesia.
== END 2019-11-12 12:04 | disposition home or self-care (01) ==
LOC: ORPAIN 09:45
PROVIDERS: ATTEND Anesthesiology
DX: M47.26 Other spondylosis with radiculopathy, lumbar region (principal); M51.16 Intervertebral disc disorders with radiculopathy, lumbar region; E11.9 Type 2 diabetes mellitus without complications; Z79.52 Long term (current) use of systemic steroids
CPT/HCPCS: 84703; 64493; 64494 ×2; J2250; J3301; J3010; Q9966; J2795; 99152

== ENCOUNTER → 2019-12-08 | Outpatient (CLI) | payer OTHER ==
[2019-12-08 12:26] VITALS: BP 106/75; PULSE 109; RESP 20
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
== END | disposition home or self-care (01) ==
LOC: PNWHC3 12:06
PROVIDERS: ATTEND Hospitalist
DX: M48.061 Spinal stenosis, lumbar region without neurogenic claudication (principal); M51.16 Intervertebral disc disorders with radiculopathy, lumbar region; Z87.891 Personal history of nicotine dependence; Z79.84 Long term (current) use of oral hypoglycemic drugs; Z79.899 Other long term (current) drug therapy
CPT/HCPCS: 99211

== ENCOUNTER 2020-06-15 23:02 | Emergency (ER) | payer OTHER ==
[2020-06-15] MEDS ORDERED: SODIUM CHLORIDE 0.9% 1,000 ML IV STA ×2 (23:19)
--- NOTE | 2020-06-15 23:19 | ED ---
Seizure HPI - General Chief Complaint: Seizure Stated Complaint: Seizure Time Seen by Provider: 06/15/20 23:08 Source: patient, family, RN notes reviewed, old records reviewed Mode of arrival: wheelchair Limitations: no limitations - History of Present Illness Initial Comments: This is a 3-year-old female DF with episode of seizure. Patient had illness seizure activity after episode of nausea vomiting prior to arrival. History of seizures no longer medication she's been 3 years of seizure free. Patient complaining of current headache abdominal pain. MD Complaint: seizure -: hour(s) Description of Episode: tonic-clonic movement, post-event confusion, other (Nausea and vomiting) -: second(s) Witnessed: yes - by bystander Trauma: No Seizure History: known seizure disorder Place: home Possible Precipitating Event: none Associated Symptoms: weakness - Related Data Home Medications Medication Instructions Recorded Confirmed metFORMIN HCL [Glucophage] 500 mg PO BID 12/18/18 12/08/19 Ferrous Sulfate [Iron (65 MG 325 mg PO DAILY 06/03/19 12/08/19 Elemental)] traZODone HCL [Desyrel] 100 mg PO HS 09/01/19 12/08/19 Desvenlafaxine Succinate [Pristiq] 100 mg PO DAILY 10/30/19 12/08/19 Gabapentin [Neurontin] 200 mg PO TID 10/30/19 12/08/19 Pain Patches 1 patch TOPICAL DIRECTED PRN 10/30/19 12/08/19 lisinopriL [Zestril] 30 mg PO DAILY 10/30/19 12/08/19 Previous Rx's Medication Instructions Recorded Albuterol Inhaler (Mhu) [Ventolin 2 - 4 puff INHALATION RT-Q6H PRN 09/03/19 Hfa Inhaler (Mhu)] #1 puff Allergies Allergy/AdvReac Type Severity Reaction Status Date / Time peanut Allergy Anaphylaxis Verified 06/15/20 23:08 egg yolk AdvReac Mild Itching- Verified 06/15/20 23:08 FROM RAW EGG YOLK influenza virus vaccine, AdvReac Unknown-ALLERGIC Verified 06/15/20 23:08 specific TO EGGS [Influenza Virus Vacc,Specific] Review of Systems ROS Statement: Those systems with pertinent positive or pertinent negative responses have been documented in the HPI. ROS Other: All systems not noted in ROS Statement are negative. Past Medical History Past Medical History: Asthma, Chest Pain / Angina, Diabetes Mellitus, GERD/Reflux, Hypertension, Musculoskeletal Disorder, Pneumonia, Seizure Disorder Additional Past Medical History / Comment(s): Hx Bronchitis, Seasonal Allergies., NIDDM type II, seizure as a child with fever and last seizure over 3 yrs ago., migraines, chronic low back pain , heart murmur, Hx UTI's. History of Any Multi-Drug Resistant Organisms: MRSA Date of last positivie culture/infection: 05/11/18 MDRO Source:: BACK Past Surgical History: Cholecystectomy, Hernia Repair Additional Past Surgical History / Comment(s): 3 ABDOMINAL HERNIAS REPAIRED, colonoscopy, pain injections. Past Anesthesia/Blood Transfusion Reactions: Motion Sickness Past Psychological History: Anxiety, Depression Smoking Status: Current every day smoker Past Alcohol Use History: None Reported Past Drug Use History: None Reported - Past Family History Father Family Medical History: Cancer Additional Family Medical History / Comment(s): FATHER OF THROAT CA Mother Family Medical History: Asthma, COPD Additional Family Medical History / Comment(s): . General Exam Limitations: no limitations General appearance: alert, in no apparent distress Head exam: Present: atraumatic, normocephalic, normal inspection Eye exam: Present: normal appearance, PERRL, EOMI. Absent: scleral icterus, conjunctival injection, periorbital swelling ENT exam: Present: normal exam, mucous membranes moist Neck exam: Present: normal inspection. Absent: tenderness, meningismus, lymphadenopathy Respiratory exam: Present: normal lung sounds bilaterally. Absent: respiratory distress, wheezes, rales, rhonchi, stridor Cardiovascular Exam: Present: regular rate, normal rhythm, normal heart sounds. Absent: systolic murmur, diastolic murmur, rubs, gallop, clicks GI/Abdominal exam: Present: soft, normal bowel sounds. Absent: distended, tenderness, guarding, rebound, rigid Extremities exam: Present: normal inspection, full ROM, normal capillary refill. Absent: tenderness, pedal edema, joint swelling, calf tenderness Back exam: Present: normal inspection Neurological exam: Present: alert, oriented X3, CN II-XII intact Psychiatric exam: Present: normal affect, normal mood Skin exam: Present: warm, dry, intact, normal color. Absent: rash Course Vital Signs 06/15/20 23:03 Temperature 99 F Pulse Rate 97 Respiratory 20 Rate Blood Pressure 95/67 O2 Sat by Pulse 99 Oximetry - Reevaluation(s) Reevaluation #1: 06/16/20 00:37 Medical records reviewed Reevaluation #2: 06/16/20 00:37 No recurrent seizure here in the ER Reevaluation #3: 06/16/20 00:37 Patient will start seizure medication follow-up with primary Medical Decision Making - Medical Decision Making 39 female recurrent seizure no acute prolonged factors found here in the ER, patient will be discharged home with her back on [facility] follow-up with neurology - Lab Data Result diagrams: 06/15/20 23:25 06/15/20 23:25 Lab Results 06/15/20 06/15/20 06/15/20 Range/Units 23:19 23:25 23:25 WBC 11.4 H (3.8-10.6) k/uL RBC 5.17 (3.80-5.40) m/uL Hgb 10.6 L (11.4-16.0) gm/dL Hct 35.4 (34.0-46.0) % MCV 68.4 L (80.0-100.0) fL MCH 20.5 L (25.0-35.0) pg MCHC 29.9 L (31.0-37.0) g/dL RDW 16.0 H (11.5-15.5) % Plt Count 442 (150-450) k/uL Neutrophils % 60 % Lymphocytes % 24 % Monocytes % 7 % Eosinophils % 6 % Basophils % 1 % Neutrophils # 6.9 (1.3-7.7) k/uL Lymphocytes # 2.7 (1.0-4.8) k/uL Monocytes # 0.8 (0-1.0) k/uL Eosinophils # 0.6 (0-0.7) k/uL Basophils # 0.1 (0-0.2) k/uL Hypochromasia Marked Microcytosis Marked Sodium (137-145) mmol/L Potassium (3.5-5.1) mmol/L Chloride (98-107) mmol/L Carbon Dioxide (22-30) mmol/L Anion Gap mmol/L BUN (7-17) mg/dL Creatinine (0.52-1.04) mg/dL Est GFR (CKD-EPI)AfAm (>60 ml/min/1.73 sqM) Est GFR (CKD-EPI)NonAf (>60 ml/min/1.73 sqM) Glucose (74-99) mg/dL POC Glucose (mg/dL) 140 H (75-99) mg/dL POC Glu Investment Fund Manager ID Arelis Robin Calcium (8.4-10.2) mg/dL Phosphorus (2.5-4.5) mg/dL Magnesium (1.6-2.3) mg/dL Total Bilirubin (0.2-1.3) mg/dL AST (14-36) U/L ALT (4-34) U/L Alkaline Phosphatase (38-126) U/L Total Protein (6.3-8.2) g/dL Albumin (3.5-5.0) g/dL Urine Color Yellow Urine Appearance Cloudy H (Clear) Urine pH 5.5 (5.0-8.0) Ur Specific [place] 1.029 (1.001-1.035) Urine Protein 1+ H (Negative) Urine Glucose (UA) Trace H (Negative) Urine Ketones Negative (Negative) Urine Blood Negative (Negative) Urine Nitrite Negative (Negative) Urine Bilirubin Negative (Negative) Urine Urobilinogen 2.0 (<2.0) mg/dL Ur Leukocyte Esterase Moderate H (Negative) Urine RBC 3 (0-5) /hpf Urine WBC 21 H (0-5) /hpf Ur Squamous Epith Cells 11 H (0-4) /hpf Urine Bacteria Occasional H (None) /hpf Hyaline Casts 10 H (0-2) /lpf Urine Mucus Moderate H (None) /hpf Urine HCG, Qual (Not Detectd) Salicylates mg/dL Urine Opiates Screen Not Detected (NotDetected) Ur Oxycodone Screen Not Detected (NotDetected) Urine Methadone Screen Not Detected (NotDetected) Ur Propoxyphene Screen Not Detected (NotDetected) Acetaminophen ug/mL Ur Barbiturates Screen Not Detected (NotDetected) U Tricyclic Antidepress Not Detected (NotDetected) Ur Phencyclidine Scrn Not Detected (NotDetected) Ur Amphetamines Screen Detected H (NotDetected) U Methamphetamines Scrn Not Detected (NotDetected) U Benzodiazepines Scrn Not Detected (NotDetected) Urine Cocaine Screen Not Detected (NotDetected) U Marijuana (THC) Screen Not Detected (NotDetected) Serum Alcohol mg/dL 06/15/20 06/15/20 Range/Units 23:25 23:25 WBC (3.8-10.6) k/uL RBC (3.80-5.40) m/uL Hgb (11.4-16.0) gm/dL Hct (34.0-46.0) % MCV (80.0-100.0) fL MCH (25.0-35.0) pg MCHC (31.0-37.0) g/dL RDW (11.5-15.5) % Plt Count (150-450) k/uL Neutrophils % % Lymphocytes % % Monocytes % % Eosinophils % % Basophils % % Neutrophils # (1.3-7.7) k/uL Lymphocytes # (1.0-4.8) k/uL Monocytes # (0-1.0) k/uL Eosinophils # (0-0.7) k/uL Basophils # (0-0.2) k/uL Hypochromasia Microcytosis Sodium 136 L (137-145) mmol/L Potassium 4.6 (3.5-5.1) mmol/L Chloride 104 (98-107) mmol/L Carbon Dioxide 24 (22-30) mmol/L Anion Gap 8 mmol/L BUN 16 (7-17) mg/dL Creatinine 0.52 (0.52-1.04) mg/dL Est GFR (CKD-EPI)AfAm >90 (>60 ml/min/1.73 sqM) Est GFR (CKD-EPI)NonAf >90 (>60 ml/min/1.73 sqM) Glucose 131 H (74-99) mg/dL POC Glucose (mg/dL) (75-99) mg/dL POC Glu Investment Fund Manager ID Calcium 9.1 (8.4-10.2) mg/dL Phosphorus 5.4 H (2.5-4.5) mg/dL Magnesium 1.9 (1.6-2.3) mg/dL Total Bilirubin 0.2 (0.2-1.3) mg/dL AST 19 (14-36) U/L ALT 17 (4-34) U/L Alkaline Phosphatase 71 (38-126) U/L Total Protein 6.3 (6.3-8.2) g/dL Albumin 4.0 (3.5-5.0) g/dL Urine Color Urine Appearance (Clear) Urine pH (5.0-8.0) Ur Specific [place] (1.001-1.035) Urine Protein (Negative) Urine Glucose (UA) (Negative) Urine Ketones (Negative) Urine Blood (Negative) Urine Nitrite (Negative) Urine Bilirubin (Negative) Urine Urobilinogen (<2.0) mg/dL Ur Leukocyte Esterase (Negative) Urine RBC (0-5) /hpf Urine WBC (0-5) /hpf Ur Squamous Epith Cells (0-4) /hpf Urine Bacteria (None) /hpf Hyaline Casts (0-2) /lpf Urine Mucus (None) /hpf Urine HCG, Qual Not Detected (Not Detectd) Salicylates <1.0 mg/dL Urine Opiates Screen (NotDetected) Ur Oxycodone Screen (NotDetected) Urine Methadone Screen (NotDetected) Ur Propoxyphene Screen (NotDetected) Acetaminophen <10.0 ug/mL Ur Barbiturates Screen (NotDetected) U Tricyclic Antidepress (NotDetected) Ur Phencyclidine Scrn (NotDetected) Ur Amphetamines Screen (NotDetected) U Methamphetamines Scrn (NotDetected) U Benzodiazepines Scrn (NotDetected) Urine Cocaine Screen (NotDetected) U Marijuana (THC) Screen (NotDetected) Serum Alcohol <10 mg/dL - EKG Data -: EKG Interpreted by Me (EKG is sinus rhythm 86 IL 142 QRS 88 QTc 466) - Radiology Data Radiology results: report reviewed (CT brain C-spine negative for traumatic injury x-ray left elbow negative for traumatic injury), image reviewed Disposition Clinical Impression: Generalized seizure, Epileptic seizure, generalized Disposition: HOME SELF-CARE Condition: Good Instructions (If sedation given, give patient instructions): Recurrent Seizures in Adults (ED) Is patient prescribed a controlled substance at d/c from ED?: No Referrals: Damion Dhaliwal [Primary Care Provider] - 1-2 days
[2020-06-15 23:23] LABS: Glucose,Whole Blood 140 mg/dL (75-99)
[2020-06-15] MEDS ORDERED: LORazepam 2 MG/ML INJ IV STA (23:30)
[2020-06-15] MEDS ORDERED: MORPHINE SULFATE 4 MG/ML SYRINGE IVP STA (23:30)
[2020-06-15 23:43] LABS: Basophils # (A) 0.1 k/uL (0-0.2); Basophils % (A) 1 %; Eosinophils # (A) 0.6 k/uL (0-0.7); Eosinophils % (A) 6 %; HCT 35.4 % (34.0-46.0); HGB 10.6 gm/dL (11.4-16.0); Hypochromasia Marked; Lymphocytes # (A) 2.7 k/uL (1.0-4.8); Lymphocytes % (A) 24 %; MCH 20.5 pg (25.0-35.0); MCHC 29.9 g/dL (31.0-37.0); MCV 68.4 fL (80.0-100.0); Mean Platelet Volume 6.4; Microcytosis Marked; Monocytes # (A) 0.8 k/uL (0-1.0); Monocytes % (A) 7 %; Neutrophils # (A) 6.9 k/uL (1.3-7.7); Neutrophils % (A) 60 %; Platelet Count 442 k/uL (150-450); RBC 5.17 m/uL (3.80-5.40); WBC 11.4 k/uL (3.8-10.6)
[2020-06-15 23:52] LABS: ALT 17 U/L (4-34); AST 19 U/L (14-36); Acetaminophen <10.0 ug/mL; African American GFR (CKD) >90 (>60 ml/min/1.73 sqM); Alcohol <10 mg/dL; Alkaline Phosphatase 71 U/L (38-126); Anion Gap 8 mmol/L; Blood Urea Nitrogen 16 mg/dL (7-17); Calcium 9.1 mg/dL (8.4-10.2); Carbon Dioxide 24 mmol/L (22-30); Chloride 104 mmol/L (98-107); Glucose 131 mg/dL (74-99); Magnesium 1.9 mg/dL (1.6-2.3); Non-African American GFR(CKD) >90 (>60 ml/min/1.73 sqM); Phosphorus 5.4 mg/dL (2.5-4.5); Potassium 4.6 mmol/L (3.5-5.1); Salicylate <1.0 mg/dL; Sodium 136 mmol/L (137-145); Total Bilirubin 0.2 mg/dL (0.2-1.3); Total Protein 6.3 g/dL (6.3-8.2)
[2020-06-15 23:57] LABS: Appearance,Urine Cloudy (Clear); Bacteria,Urine Occasional /hpf; Bilirubin,Urine Negative (Negative); Blood,Urine Negative (Negative); Color,Urine Yellow; Glucose,Urine (UA) Trace (Negative); Hyaline Casts,Urine 10 /lpf (0-2); Ketones,Urine Negative (Negative); Leukocyte Esterase,Urine Moderate (Negative); Mucus,Urine Moderate /hpf; Nitrite,Urine Negative (Negative); PH, Urine 5.5 (5.0-8.0); Protein,Urine 1+ (Negative); RBC,Urine 3 /hpf (0-5); Specific Gravity,Urine 1.029 (1.001-1.035); Squamous Epithelial Cell,Urine 11 /hpf (0-4); WBC,Urine 21 /hpf (0-5)
[2020-06-16 00:08] LABS: Amphetamine Screen,Urine Detected (NotDetected); Barbiturate Screen,Urine Not Detected (NotDetected); Benzodiazepines Screen,Urine Not Detected (NotDetected); Cocaine Screen,Urine Not Detected (NotDetected); Methadone Screen, Urine Not Detected (NotDetected); Opiate Screen,Urine Not Detected (NotDetected); Oxycodone Screen, Urine Not Detected (NotDetected); Phencyclidine Screen,Urine Not Detected (NotDetected); Tricyclic Antidepressant,Urine Not Detected (NotDetected); Urn Cannabinoid Scrn Not Detected (NotDetected)
--- NOTE | 2020-06-16 00:23 | XR ---
EXAMINATION TYPE: XR elbow complete LT DATE OF EXAM: 06/16/2020 COMPARISON: NONE HISTORY: Pain. Fall. TECHNIQUE: 3 views FINDINGS: I see no fracture nor dislocation. Joint spaces are normal. There is no sign of elbow joint effusion. IMPRESSION: Negative left elbow exam.
--- NOTE | 2020-06-16 00:26 | CT ---
EXAMINATION TYPE: CT brain milady giron DATE OF EXAM: 06/16/2020 COMPARISON: 07/08/2014 CT brain HISTORY: seizure then fell and hit her head CT DLP: 1673.9 mGycm Automated exposure control for dose reduction was used. The ventricles and sulci appear normal. There is no mass effect nor midline shift. There is no sign o f intracranial hemorrhage. There is no evidence of cerebral edema. Calvarium is intact. Skull base is intact. Sella turcica appears normal. Cervical vertebra show some straightening. Disc spaces are fairly normal. There is mild anterior spur ring at C3-4. Facet joints are intact. There is no evidence of cervical spine fracture. There is mild uncovertebral spurring in the lower cervical spine. IMPRESSION: Negative CT scan of the brain. No change. Minor degenerative changes in the cervical spine. No fracture.
[2020-06-16] MEDS ORDERED: levETIRAcetam 500 MG TAB PO STA ×2 (00:38→00:39)
[2020-06-16 01:29] VITALS: BP 102/62; PULSE 89; RESP 18; TEMP 97.9
== END 2020-06-16 01:10 | disposition home or self-care (01) ==
LOC: EC 23:02
DX: G40.409 Other generalized epilepsy and epileptic syndromes, not intractable, without status epilepticus (principal); R11.2 Nausea with vomiting, unspecified; F17.200 Nicotine dependence, unspecified, uncomplicated; I10 Essential (primary) hypertension; E11.9 Type 2 diabetes mellitus without complications; F41.9 Anxiety disorder, unspecified; F32.9 Major depressive disorder, single episode, unspecified; Z86.14 Personal history of Methicillin resistant Staphylococcus aureus infection; Z79.84 Long term (current) use of oral hypoglycemic drugs; Z86.69 Personal history of other diseases of the nervous system and sense organs; Z88.7 Allergy status to serum and vaccine; Z91.010 Allergy to peanuts; Z91.012 Allergy to eggs
CPT/HCPCS: 36415; 93005; 80053; 83735; 84100; 85025; 81001; 81025; 80306; 83520; 73080; 72125; 70450; 99285; 96374; 96375; 96361; G0480 ×2; J2060; J2270; 80320; 80329

== ENCOUNTER 2020-06-29 07:40 | Inpatient (IN) | payer OTHER ==
[2020-06-29] MEDS ORDERED: ONDANSETRON 4 MG/2 ML VIAL IVP STA (07:56)
[2020-06-29] MEDS ORDERED: HYDROmorphone 0.5 MG/0.5 ML SYRINGE IVP STA ×2 (07:56→10:23)
--- NOTE | 2020-06-29 08:00 | ED ---
General Adult HPI - General Chief complaint: Abdominal Pain Stated complaint: abd pain Time Seen by Provider: 06/29/20 07:45 Source: patient, RN notes reviewed, old records reviewed Mode of arrival: ambulatory Limitations: no limitations - History of Present Illness Initial comments: This is a 40-year-old female who presents emergency Department complaining of abdominal pain for 4 days. Patient states she's had diarrhea for 4 days ago. Patient states 2 days ago she started vomiting. Patient denies any fever chills per patient states the pain is left lower quadrant. Patient denies any dysuria hematuria urinary frequency. Patient denies any chest pain difficulty breathing or shortness of breath per patient states she's had no bloody or black stools. Patient states she is late for her period by about 28 days. Patient states she's had a umbilical hernia repair as well as a cholecystectomy. - Related Data Home Medications Medication Instructions Recorded Confirmed Ferrous Sulfate [Iron (65 MG 325 mg PO DAILY 06/03/19 06/29/20 Elemental)] Desvenlafaxine Succinate [Pristiq] 200 mg PO DAILY 10/30/19 06/29/20 Gabapentin [Neurontin] 200 mg PO TID 10/30/19 06/29/20 Albuterol Sulfate [Albuterol 2 puff PO RT-Q4H PRN 06/29/20 06/29/20 Sulfate Hfa] Metoprolol Tartrate [Lopressor] 25 mg PO BID 06/29/20 06/29/20 Montelukast [Singulair] 10 mg PO HS 06/29/20 06/29/20 glipiZIDE [Glucotrol] 5 mg PO BID 06/29/20 06/29/20 lisinopriL 40 mg PO DAILY 06/29/20 06/29/20 metFORMIN HCL 1,000 mg PO BID-W/MEALS 06/29/20 06/29/20 traZODone HCL 150 mg PO HS 06/29/20 06/29/20 Previous Rx's Medication Instructions Recorded levETIRAcetam [Keppra] 500 mg PO BID #60 tab 06/16/20 Allergies Allergy/AdvReac Type Severity Reaction Status Date / Time peanut Allergy Anaphylaxis Verified 06/29/20 12:45 egg yolk AdvReac Mild Itching- Verified 06/29/20 12:45 FROM RAW EGG YOLK influenza virus vaccine, AdvReac Unknown-ALLERGIC Verified 06/29/20 12:45 specific TO EGGS [Influenza Virus Vacc,Specific] Review of Systems ROS Statement: Those systems with pertinent positive or pertinent negative responses have been documented in the HPI. ROS Other: All systems not noted in ROS Statement are negative. Past Medical History Past Medical History: Asthma, Chest Pain / Angina, Diabetes Mellitus, GERD/Reflux, Hypertension, Musculoskeletal Disorder, Pneumonia, Seizure Disorder Additional Past Medical History / Comment(s): Hx Bronchitis, Seasonal Allergies., NIDDM type II, seizure as a child with fever and last seizure over 3 yrs ago., migraines, chronic low back pain , heart murmur, Hx UTI's. History of Any Multi-Drug Resistant Organisms: MRSA Date of last positivie culture/infection: 05/11/18 MDRO Source:: BACK Past Surgical History: Cholecystectomy, Hernia Repair Additional Past Surgical History / Comment(s): 3 ABDOMINAL HERNIAS REPAIRED, colonoscopy, pain injections. Past Anesthesia/Blood Transfusion Reactions: Motion Sickness Past Psychological History: Anxiety, Depression Smoking Status: Current every day smoker Past Alcohol Use History: None Reported Past Drug Use History: None Reported - Past Family History Father Family Medical History: Cancer Additional Family Medical History / Comment(s): FATHER OF THROAT CA Mother Family Medical History: Asthma, COPD Additional Family Medical History / Comment(s): . General Exam - General Exam Comments Initial Comments: GENERAL: Patient is well-developed and well-nourished. Patient is nontoxic and well- hydrated and is in mild distress. ENT: Neck is soft and supple. No significant lymphadenopathy is noted. Oropharynx is clear. Moist mucous membranes. Neck has full range of motion without eliciting any pain. EYES: The sclera were anicteric and conjunctiva were pink and moist. Extraocular movements were intact and pupils were equal round and reactive to light. Eyelids were unremarkable. PULMONARY: Unlabored respirations. Good breath sounds bilaterally. No audible rales rhonchi or wheezing was noted. CARDIOVASCULAR: There is a regular rate and rhythm without any murmurs gallops or rubs. ABDOMEN: Left lower quadrant tenderness no rebound or guarding SKIN: Skin is clear with no lesions or rashes and otherwise unremarkable. NEUROLOGIC: Patient is alert and oriented x3. Cranial nerves II through XII are grossly in tact. Motor and sensory are also intact. Normal speech, volume and content. Symmetrical smile. MUSCULOSKELETAL: Normal extremities with adequate strength and full range of motion. LYMPHATICS: No significant lymphadenopathy is noted PSYCHIATRIC: Normal psychiatric evaluation. Limitations: no limitations Course Vital Signs 06/29/20 06/29/20 06/29/20 07:44 08:46 09:00 Temperature 98.1 F Pulse Rate 103 H 97 Respiratory 18 20 20 Rate Blood Pressure 109/61 110/69 O2 Sat by Pulse 99 99 Oximetry 06/29/20 06/29/20 11:07 12:56 Temperature 98.4 F Pulse Rate 98 100 Respiratory 22 20 Rate Blood Pressure 101/68 115/87 O2 Sat by Pulse 99 99 Oximetry Medical Decision Making - Medical Decision Making CT of the abdomen and pelvis shows a enlarged uterus with fibroids and a possible degenerating fibroid. Ultrasound confirms these results. I spoke with Dr. Chatman she agreed to be on consult for this patient. I spoke with some physicians agreed to admit the patient admitted the patient wrote admitting orders. EKG shows normal sinus rhythm at 96 bpm WV interval 136 dresses 92 QT interval 364 QTC is 459. Patient's EKG shows no ST segment elevation or depression. - Lab Data Result diagrams: 06/29/20 09:38 06/29/20 08:30 Lab Results 06/29/20 06/29/20 06/29/20 Range/Units 08:30 08:30 08:30 WBC (3.8-10.6) k/uL RBC (3.80-5.40) m/uL Hgb (11.4-16.0) gm/dL Hct (34.0-46.0) % MCV (80.0-100.0) fL MCH (25.0-35.0) pg MCHC (31.0-37.0) g/dL RDW (11.5-15.5) % Plt Count (150-450) k/uL Neutrophils % Not Reportable Lymphocytes % Not Reportable Monocytes % Not Reportable Eosinophils % Not Reportable Basophils % Not Reportable Neutrophils # Not Reportable Lymphocytes # Not Reportable Monocytes # Not Reportable Eosinophils # Not Reportable Basophils # Not Reportable Hypochromasia Poikilocytosis Anisocytosis Microcytosis Sodium (137-145) mmol/L Potassium (3.5-5.1) mmol/L Chloride (98-107) mmol/L Carbon Dioxide (22-30) mmol/L Anion Gap mmol/L BUN (7-17) mg/dL Creatinine (0.52-1.04) mg/dL Est GFR (CKD-EPI)AfAm (>60 ml/min/1.73 sqM) Est GFR (CKD-EPI)NonAf (>60 ml/min/1.73 sqM) Glucose (74-99) mg/dL Calcium (8.4-10.2) mg/dL Total Bilirubin (0.2-1.3) mg/dL AST (14-36) U/L ALT (4-34) U/L Alkaline Phosphatase (38-126) U/L Total Protein (6.3-8.2) g/dL Albumin (3.5-5.0) g/dL Amylase (30-110) U/L Lipase (23-300) U/L Urine Color Yellow Urine Appearance Clear (Clear) Urine pH 5.0 (5.0-8.0) Ur Specific [place] 1.021 (1.001-1.035) Urine Protein Negative (Negative) Urine Glucose (UA) 4+ H (Negative) Urine Ketones 2+ H (Negative) Urine Blood Negative (Negative) Urine Nitrite Negative (Negative) Urine Bilirubin Negative (Negative) Urine Urobilinogen <2.0 (<2.0) mg/dL Ur Leukocyte Esterase Negative (Negative) Urine HCG, Qual Not Detected (Not Detectd) 06/29/20 06/29/20 Range/Units 08:30 09:38 WBC 15.8 H (3.8-10.6) k/uL RBC 4.63 (3.80-5.40) m/uL Hgb 9.4 L (11.4-16.0) gm/dL Hct 30.6 L (34.0-46.0) % MCV 66.0 L (80.0-100.0) fL MCH 20.2 L (25.0-35.0) pg MCHC 30.7 L (31.0-37.0) g/dL RDW 16.9 H (11.5-15.5) % Plt Count 273 (150-450) k/uL Neutrophils % 82 Lymphocytes % 9 Monocytes % 5 Eosinophils % 3 Basophils % 0 Neutrophils # 12.9 H Lymphocytes # 1.4 Monocytes # 0.9 Eosinophils # 0.4 Basophils # 0.1 Hypochromasia Marked Poikilocytosis Slight Anisocytosis Slight Microcytosis Marked Sodium 132 L (137-145) mmol/L Potassium 5.9 H (3.5-5.1) mmol/L Chloride 102 (98-107) mmol/L Carbon Dioxide 19 L (22-30) mmol/L Anion Gap 11 mmol/L BUN 13 (7-17) mg/dL Creatinine 0.46 L (0.52-1.04) mg/dL Est GFR (CKD-EPI)AfAm >90 (>60 ml/min/1.73 sqM) Est GFR (CKD-EPI)NonAf >90 (>60 ml/min/1.73 sqM) Glucose 218 H (74-99) mg/dL Calcium 9.3 (8.4-10.2) mg/dL Total Bilirubin 0.8 (0.2-1.3) mg/dL AST 57 H (14-36) U/L ALT 16 (4-34) U/L Alkaline Phosphatase 71 (38-126) U/L Total Protein 7.1 (6.3-8.2) g/dL Albumin 4.2 (3.5-5.0) g/dL Amylase 47 (30-110) U/L Lipase 35 (23-300) U/L Urine Color Urine Appearance (Clear) Urine pH (5.0-8.0) Ur Specific [place] (1.001-1.035) Urine Protein (Negative) Urine Glucose (UA) (Negative) Urine Ketones (Negative) Urine Blood (Negative) Urine Nitrite (Negative) Urine Bilirubin (Negative) Urine Urobilinogen (<2.0) mg/dL Ur Leukocyte Esterase (Negative) Urine HCG, Qual (Not Detectd) Disposition Clinical Impression: Lower abdominal pain Disposition: ADMITTED IP TO THIS [facility] Time of Disposition: 12:19
[2020-06-29 09:09] LABS: ALT 16 U/L (4-34); AST 57 U/L (14-36); African American GFR (CKD) >90 (>60 ml/min/1.73 sqM); Albumin 4.2 g/dL (3.5-5.0); Alkaline Phosphatase 71 U/L (38-126); Amylase 47 U/L (30-110); Anion Gap 11 mmol/L; Blood Urea Nitrogen 13 mg/dL (7-17); Calcium 9.3 mg/dL (8.4-10.2); Carbon Dioxide 19 mmol/L (22-30); Chloride 102 mmol/L (98-107); Glucose 218 mg/dL (74-99); Non-African American GFR(CKD) >90 (>60 ml/min/1.73 sqM); Sodium 132 mmol/L (137-145); Total Bilirubin 0.8 mg/dL (0.2-1.3); Total Protein 7.1 g/dL (6.3-8.2)
[2020-06-29 09:11] LABS: Potassium 5.9 mmol/L (3.5-5.1)
[2020-06-29 09:23] LABS: Appearance,Urine Clear (Clear); Bilirubin,Urine Negative (Negative); Blood,Urine Negative (Negative); Color,Urine Yellow; Glucose,Urine (UA) 4+ (Negative); Leukocyte Esterase,Urine Negative (Negative); Nitrite,Urine Negative (Negative); Protein,Urine Negative (Negative); Specific Gravity,Urine 1.021 (1.001-1.035); Urobilinogen,Urine <2.0 mg/dL (<2.0)
[2020-06-29 09:34] LABS: Ketones,Urine 2+ (Negative)
[2020-06-29 09:53] LABS: Anisocytosis Slight; Basophils # (A) 0.1 k/uL (0-0.2); Basophils % (A) 0 %; Eosinophils # (A) 0.4 k/uL (0-0.7); Eosinophils % (A) 3 %; HCT 30.6 % (34.0-46.0); HGB 9.4 gm/dL (11.4-16.0); Hypochromasia Marked; Lymphocytes # (A) 1.4 k/uL (1.0-4.8); Lymphocytes % (A) 9 %; MCH 20.2 pg (25.0-35.0); MCHC 30.7 g/dL (31.0-37.0); Mean Platelet Volume 8.3; Microcytosis Marked; Monocytes # (A) 0.9 k/uL (0-1.0); Monocytes % (A) 5 %; Neutrophils # (A) 12.9 k/uL (1.3-7.7); Neutrophils % (A) 82 %; Platelet Count 273 k/uL (150-450); Poikilocytosis Slight; RBC 4.63 m/uL (3.80-5.40); RDW 16.9 % (11.5-15.5); WBC 15.8 k/uL (3.8-10.6)
--- NOTE | 2020-06-29 10:16 | CT ---
EXAMINATION TYPE: CT abdomen pelvis w con DATE OF EXAM: 06/29/2020 COMPARISON: 06/03/2019 HISTORY: LLQ pain CT DLP: 2427.5 mGycm Automated exposure control for dose reduction was used. CONTRAST: CT scan of the abdomen pelvis is performed with IV Contrast, patient injected with 100 mL of Isovue 3 00. FINDINGS- LUNG BASES- No significant abnormality is appreciated. LIVER/GB-there is hepatic steatosis with an area of focal fatty sparing involving the left lobe the l iver which is similar to the prior exam. Postcholecystectomy changes are seen. Correlate for hepatome renee.. PANCREAS- No gross abnormality is seen. SPLEEN- No gross abnormality is seen. ADRENALS- No gross abnormality is seen. KIDNEYS/BLADDER-no hydronephrosis or nephrolithiasis. Hypodensity within the anterior lower pole enoch ex measuring subcentimeter too small to characterize. Stable from prior exam likely related to cyst.. BOWEL-bowel gas pattern nonspecific. There is a normal-appearing appendix. No evidence of obstruction .. LYMPH NODES- No greater than 1cm abdominal or pelvic lymph nodes areappreciated. OSSEOUS STRUCTURES-hypertrophic and degenerative change of the spine. OTHER- there is marked abnormal appearance of what appears to be the uterus with dilated endometrium fluid-filled sac measuring approximately 8 cm. This could be related to an obstructing endometrial l esion correlate with beta hCG. Exophytic nodular changes are likely related to fibroid. No free fluid . IMPRESSION- 1. Uterus is markedly enlarged and there is interval development of a large fluid collection centrall y measuring 8 cm. This could represent a dilated endometrium or degenerating uterine mass. Additional lobulation to the uterus is likely in the basis of fibroids. Obstructing endocervical lesion not exc luded. Hemorrhage or infectious etiology within the endometrium also in the differential diagnosis co rrelate clinically. 2. Post cholecystectomy with the changes of fatty infiltration of the liver with localized sparing in volving the left lobe of the liver unchanged from 2013.
[2020-06-29] MEDS ORDERED: SODIUM CHLORIDE 0.9% 1,000 ML IV ONE ×2 (10:20→12:23)
--- NOTE | 2020-06-29 11:55 | US ---
EXAMINATION TYPE: US pelvic complete DATE OF EXAM: 06/29/2020 COMPARISON: CT same day CLINICAL HISTORY: 40-year-old female Abdominal pain and large uterus, f/u to ct TECHNIQUE: Transabdominal sonographic images of the pelvis were acquired. Transvaginal sonographic images were attempted, however due to field of view were not diagnostic. Date of LMP: 05/17/20 FINDINGS: EXAM MEASUREMENTS: Uterus: 18.4 x 11.6 x 10.9 cm Endometrial Stripe: 2.6 cm Right Ovary: obscured by bowel gas/large uterine size/morbid obesity Left Ovary: obscured by bowel gas/large uterine size/morbid obesity Public Health Advisor notes: Morbidly obese patient, technically difficult study, limited views 1. Uterus: grossly enlarged fibroid uterus, it is difficult to tell where one fibroid ends and another begins, grossly heterogeneous, smaller exophytic left uterine fundal fibroid measuring 2.7 cm. 2. Endometrium: There may be some fluid within the uterine cavity along the lower uterine segment and cervix. A portion of the endometrial stripe is questionably visualized. This may measure up to 2.6 cm, which would be excessively thickened. 3. Right Ovary: obscured by bowel gas/large uterine size/morbid obesity 4. Left Ovary: obscured by bowel gas/large uterine size/morbid obesity 5. Bilateral Adnexa: very limited views 6. Posterior cul-de-sac: appears wnl IMPRESSION: 1. Bulky fibroid uterus. Unable to discern individual fibroids due to the degree of heterogeneity. Given the enlarging size of a centrally located fibroid measuring at least 10 cm on the patient's CT and hypodense appearance, if pain localizes to the pelvis, consider an acutely degenerating fibroid 2. Unable to exclude abnormal endometrial thickening up to 2.6 cm. 3. Neither ovary could be visualized. 4. Female pelvic MRI without and with contrast may be indicated for assessment of the junctional anatomy and for assessment of potential fibroid change. [facility]
[2020-06-29] MEDS ORDERED: ONDANSETRON 4 MG/2 ML VIAL IVP PRN ×2 (12:29→16:58)
[2020-06-29] MEDS ORDERED: SODIUM POLYSTYRENE SULFONATE 15 GM/60 ML BOTTLE PO STA (12:58)
[2020-06-29] MEDS: HYDROmorphone 0.5 MG/0.5 ML SYRINGE IVP PRN ×2 (13:59→17:59)
[2020-06-29] MEDS ORDERED: MORPHINE SULFATE 4 MG/ML SYRINGE ONE (16:28)
[2020-06-29] MEDS ORDERED: MORPHINE SULFATE 2 MG/ML SYRINGE IVP PRN (16:58)
[2020-06-29] MEDS ORDERED: ACETAMINOPHEN TAB 325 MG TAB PO PRN (16:58)
--- NOTE | 2020-06-29 17:08 | P.HPIM ---
History of Present Illness H&P Date: 06/29/20 Chief Complaint: Abdominal pain This is a 40-year-old female with past medical history noted below who presented to the emergency room with severe abdominal pain. Patient said that her pain started suddenly last night and it was mostly in her left lower abdomen. She is rating her pain as 10 out of 10 in severity. She denies any fevers or chills. She has some nausea but no vomiting. She is having normal bowel movement with intermittent diarrhea. Patient said that she never experienced similar abdominal pain in the past. She appears very uncomfortable during the i nterview. She was evaluated in the ER and computed tomography scan of the abdomen showed a markedly enlarged uterus with a questionable fluid collection/mass. Patient denies any vagina bleeding. She is currently admitted to the hospital for WELFARE MANAGER evaluation. Review of Systems Review of system: 14 points review of systems were obtained and were negative except to what were mentioned in the HPI. Past Medical History Past Medical History: Asthma, Chest Pain / Angina, Diabetes Mellitus, GERD/Reflux, Hypertension, Musculoskeletal Disorder, Pneumonia, Seizure Disorder Additional Past Medical History / Comment(s): Hx Bronchitis, Seasonal Allergies., NIDDM type II, seizure as a child with fever and last seizure over 3 yrs ago., migraines, chronic low back pain , heart murmur, Hx UTI's. History of Any Multi-Drug Resistant Organisms: MRSA Date of last positivie culture/infection: 05/11/18 MDRO Source:: BACK Past Surgical History: Cholecystectomy, Hernia Repair Additional Past Surgical History / Comment(s): 3 ABDOMINAL HERNIAS REPAIRED, colonoscopy, pain injections. Past Anesthesia/Blood Transfusion Reactions: Motion Sickness Past Psychological History: Anxiety, Depression Smoking Status: Current every day smoker Past Alcohol Use History: None Reported Past Drug Use History: None Reported - Past Family History Father Family Medical History: Cancer Additional Family Medical History / Comment(s): FATHER OF THROAT CA Mother Family Medical History: Asthma, COPD Additional Family Medical History / Comment(s): . Medications and Allergies Home Medications Medication Instructions Recorded Confirmed Type Ferrous Sulfate [Iron (65 MG 325 mg PO DAILY 06/03/19 06/29/20 History Elemental)] Desvenlafaxine Succinate [Pristiq] 200 mg PO DAILY 10/30/19 06/29/20 History Gabapentin [Neurontin] 200 mg PO TID 10/30/19 06/29/20 History levETIRAcetam [Keppra] 500 mg PO BID #60 tab 06/16/20 06/29/20 Rx Albuterol Sulfate [Albuterol 2 puff PO RT-Q4H PRN 06/29/20 06/29/20 History Sulfate Hfa] Metoprolol Tartrate [Lopressor] 25 mg PO BID 06/29/20 06/29/20 History Montelukast [Singulair] 10 mg PO HS 06/29/20 06/29/20 History glipiZIDE [Glucotrol] 5 mg PO BID 06/29/20 06/29/20 History lisinopriL 40 mg PO DAILY 06/29/20 06/29/20 History metFORMIN HCL 1,000 mg PO BID-W/MEALS 06/29/20 06/29/20 History traZODone HCL 150 mg PO HS 06/29/20 06/29/20 History Allergies Allergy/AdvReac Type Severity Reaction Status Date / Time peanut Allergy Anaphylaxis Verified 06/29/20 13:45 egg yolk AdvReac Mild Itching- Verified 06/29/20 13:45 FROM RAW EGG YOLK influenza virus vaccine, AdvReac Unknown-ALLERGIC Verified 06/29/20 13:45 specific TO EGGS [Influenza Virus Vacc,Specific] Physical Exam Vitals: Vital Signs Temp Pulse Pulse Resp BP BP Pulse Ox 06/29/20 13:37 98.6 F 102 H 20 105/71 97 06/29/20 12:56 98.4 F 100 20 115/87 99 06/29/20 11:07 98 22 101/68 99 06/29/20 09:00 97 20 110/69 99 06/29/20 08:46 20 06/29/20 07:44 98.1 F 103 H 18 109/61 99 Intake and Output 06/29/20 06/29/20 06/29/20 06:59 14:59 22:59 Other: # Voids 1 Weight 117.3 kg General: The patient is awake and alert, in no distress Eye: there is normal conjunctiva bilaterally. Neck: The neck is supple, there is no JVD. Cardiovascular: Normal S1-S2, no S3-S4, no murmurs. Respiratory: Lungs clear to auscultation bilaterally Gastrointestinal: Abdomen is soft, with moderate to severe tenderness to palpation worse than the left lower quadrant Musculoskeletal: There is no pedal edema. Neurological:. Speech is normal. Skin: Skin is warm and dry Results CBC & Chem 7: 06/29/20 09:38 06/29/20 08:30 Labs: Abnormal Lab Results - Last 24 Hours (Table) 06/29/20 06/29/20 06/29/20 Range/Units 08:30 08:30 09:38 WBC 15.8 H (3.8-10.6) k/uL Hgb 9.4 L (11.4-16.0) gm/dL Hct 30.6 L (34.0-46.0) % MCV 66.0 L (80.0-100.0) fL MCH 20.2 L (25.0-35.0) pg MCHC 30.7 L (31.0-37.0) g/dL RDW 16.9 H (11.5-15.5) % Neutrophils # 12.9 H (1.3-7.7) k/uL Sodium 132 L (137-145) mmol/L Potassium 5.9 H (3.5-5.1) mmol/L Carbon Dioxide 19 L (22-30) mmol/L Creatinine 0.46 L (0.52-1.04) mg/dL Glucose 218 H (74-99) mg/dL AST 57 H (14-36) U/L Urine Glucose (UA) 4+ H (Negative) Urine Ketones 2+ H (Negative) Thrombosis Risk Factor Assmnt - Choose All That Apply Any of the Below Risk Factors Present?: Yes Each Factor Represents 1 point: Abnormal pulmonary function (COPD), Age 41-60 years, Obesity (BMI >25) Thrombosis Risk Factor Assessment Total Risk Factor Score: 3 Thrombosis Risk Factor Assessment Level: Moderate Risk Assessment and Plan Assessment: 1. Markedly enlarged uterus with questionable degenerating mass noted on computed tomography scan of the abdomen. Patient was seen and evaluated by OB/9. Plan for hysterectomy in the morning. 2. Hyperkalemia: With slight hemolysis. Repeat potassium ordered. Kayexalate 30 mg once now. Hold lisinopril. 3. Type 2 diabetes, hold oral agents and continue sliding scale insulin 4. Essential hypertension: Blood pressure within acceptable range. We will hold lisinopril for now in setting of hyperkalemia. Continue to monitor BP closely. 5. Underlying COPD: With no evidence of exacerbation 6. History of seizure disorder, on Keppra. Check Keppra level DVT prophylaxis with subcu heparin Today, I reviewed her medication list and lab work results. Leukocytosis mostly reactive. Case discussed with WELFARE MANAGER. Plan for hysterectomy in the morning. IV morphine for pain control. Zofran when necessary for nausea. Nothing by mouth after midnight. Repeat lab work in the morning.
--- NOTE | 2020-06-29 17:16 | P.OBCN ---
History of Present Illness Consult date: 06/29/20 Reason for consult: pelvic pain, pelvic mass Chief complaint: Exquisite abdominal pain History of present illness: This is a 40-year-old white female 2 para 2001 last menstrual period March of this year. Patient presented to the emergency room today with a 4 day history of abdominal pain, increasing in severity. She states that now her pain as 10 out of 10. In addition she has noted an increasing abdominal girth over the past few weeks. Sonographic evaluation in the emergency room was consistent with a massively enlarged fibroid uterus, ovaries not well visualized. Past surgical history significant for cholecystectomy, left inguinal herniorrhaphy, and umbilical herniorrhaphy 1. Past history significant for obesity, asthma, seizure disorder, type 2 diabetes,, chronic hypertension, depression. Obstetric history significant for normal spontaneous vaginal deliveries, 7 lbs. 13 oz. female infant 20 years ago, 9 lbs. 1 oz. female 12 years ago. Family history is negative for cancers of the uterus, cervix, ovaries, colon, or breast. Social history patient is engaged to be , she is a chronic tobacco smoker for 10 years, currently one half pack per day. She denies alcohol or drug use. Current medications albuterol inhaler 2 puffs every 4 hours, Keppra 500 mg twice daily, metformin 1000 mg twice daily, lisinopril 400 mg daily, trazodone 150 mg at at bedtime, Lopressor 25 mg twice daily, Singulair 10 mg at at bedtime, Pristiq 200 mg daily, Neurontin 200 mg 3 times a day. Primary care physician is Dr. Ang. ALLERGIES include peanuts to which reports an anaphylactic reaction, [place] to which reports itching, and influenza vaccine to which she reports a local reaction. ENERGY ECONOMIST history is significant for menarche age 10, 28 day cycle and 5 day duration, heavy menses with large blood clots. She is currently using nothing for contraception. She states her last Pap smear was within the past year and normal. She denies history of GC, chlamydia, HSV, or HPV infections. On exam patient is 5 foot 3 inches, 263 pounds, pulse 102, temperature 98.6, respiratory rate 20, 97% O2 saturation, blood pressure 105/71. She has good dentition. Normal thyroid to palpation, no cervical lymphadenopathy. Breast exam is negative, no masses, skin changes, nipple discharges, or axillary adenopathy. Chest reveals inspiratory and expiratory wheezes bilaterally. Cardiac exam reveals regular rate and rhythm with no murmur click or rub. Abdomen is massively enlarged, uterine fundus above the umbilicus. Her uterus is exquisitely tender, most especially in the left lower quadrant. There is guarding. Hypoactive bowel sounds. No CVA tenderness. Extremities reveal no e justine, good peripheral pulses. Cervix is small and mobile, uterus on pelvic exam is several centimeters above the umbilicus. Rectal exam reveals fibroids in the posterior cul-de-sac, Hemoccult sampling is performed and sent to the lab. Labs include potassium 5.9, sodium 132, hemoglobin A1c 7.6, AST 57, ALTs 16. Hemoglobin 9.4, hematocrit 30.6, platelets 273,000, white count 15.8. Glucose 218. Impression: Massively enlarged fibroid uterus with exquisite pelvic pain, suspected degenerating fibroids. Hyperkalemia, hyperglycemia, anemia, elevated liver enzymes, bilateral wheezing noted on chest. Plan I have consulted the [facility] who are helping at this time for medical management. I have discussed with the patient that I believe a total abdominal hysterectomy is in order. We have reviewed the options of uterine artery embolization, myomectomy, Lupron therapy. Patient is declining these options secondary to the severity of her pain, and choosing surgical removal of the uterus understanding that she will not be able to bear children in the future. We've discussed possible oophorectomy and will decide intraoperatively. Plan would be to have the ovaries remain in situ if within normal limits to inspection. Risks of surgery including bleeding, infection, perforation or damage to bowel, bladder, ureters, blood vessels all discussed. Second opinion offered and declined. All questions answered. Anesthesia aware. Consent reviewed signed witnessed and dated. Vertical versus low transverse incision decision to be made under anesthesia. Time with patient one and a half hours. Review of Systems Constitutional: Reports as per HPI Past Medical History Past Medical History: Asthma, Chest Pain / Angina, Diabetes Mellitus, GERD/Reflux, Hypertension, Musculoskeletal Disorder, Pneumonia, Seizure Disorder Additional Past Medical History / Comment(s): Hx Bronchitis, Seasonal Allergies., NIDDM type II, seizure as a child with fever and last seizure over 3 yrs ago., migraines, chronic low back pain , heart murmur, Hx UTI's. History of Any Multi-Drug Resistant Organisms: MRSA Year Discovered:: 05/11/18 MDRO Source:: BACK Past Surgical History: Cholecystectomy, Hernia Repair Additional Past Surgical History / Comment(s): 3 ABDOMINAL HERNIAS REPAIRED, colonoscopy, pain injections. Past Anesthesia/Blood Transfusion Reactions: Motion Sickness Past Psychological History: Anxiety, Depression Smoking Status: Current every day smoker Past Alcohol Use History: None Reported Past Drug Use History: None Reported - Past Family History Father Family Medical History: Cancer Additional Family Medical History / Comment(s): FATHER OF THROAT [place] Mother Family Medical History: Asthma, COPD Additional Family Medical History / Comment(s): . Medications and Allergies Home Medications Medication Instructions Recorded Confirmed Type Ferrous Sulfate [Iron (65 MG 325 mg PO DAILY 06/03/19 06/29/20 History Elemental)] Desvenlafaxine Succinate [Pristiq] 200 mg PO DAILY 10/30/19 06/29/20 History Gabapentin [Neurontin] 200 mg PO TID 10/30/19 06/29/20 History levETIRAcetam [Keppra] 500 mg PO BID #60 tab 06/16/20 06/29/20 Rx Albuterol Sulfate [Albuterol 2 puff PO RT-Q4H PRN 06/29/20 06/29/20 History Sulfate Hfa] Metoprolol Tartrate [Lopressor] 25 mg PO BID 06/29/20 06/29/20 History Montelukast [Singulair] 10 mg PO HS 06/29/20 06/29/20 History glipiZIDE [Glucotrol] 5 mg PO BID 06/29/20 06/29/20 History lisinopriL 40 mg PO DAILY 06/29/20 06/29/20 History metFORMIN HCL 1,000 mg PO BID-W/MEALS 06/29/20 06/29/20 History traZODone HCL 150 mg PO HS 06/29/20 06/29/20 History Allergies Allergy/AdvReac Type Severity Reaction Status Date / Time peanut Allergy Anaphylaxis Verified 06/29/20 13:45 egg yolk AdvReac Mild Itching- Verified 06/29/20 13:45 FROM RAW EGG YOLK influenza virus vaccine, AdvReac Unknown-ALLERGIC Verified 06/29/20 13:45 specific TO EGGS [Influenza Virus Vacc,Specific] Exam Vital Signs Temp Pulse Pulse Resp BP BP Pulse Ox 06/29/20 13:37 98.6 F 102 H 20 105/71 97 06/29/20 12:56 98.4 F 100 20 115/87 99 06/29/20 11:07 98 22 101/68 99 06/29/20 09:00 97 20 110/69 99 06/29/20 08:46 20 06/29/20 07:44 98.1 F 103 H 18 109/61 99 Intake and Output 06/29/20 06/29/20 06/29/20 06:59 14:59 22:59 Other: # Voids 1 Weight 117.3 kg See dictation under HPI please Results Result Diagrams: 06/29/20 09:38 06/29/20 08:30 Abnormal Lab Results - Last 24 Hours (Table) 06/29/20 06/29/20 06/29/20 Range/Units 08:30 08:30 09:38 WBC 15.8 H (3.8-10.6) k/uL Hgb 9.4 L (11.4-16.0) gm/dL Hct 30.6 L (34.0-46.0) % MCV 66.0 L (80.0-100.0) fL MCH 20.2 L (25.0-35.0) pg MCHC 30.7 L (31.0-37.0) g/dL RDW 16.9 H (11.5-15.5) % Neutrophils # 12.9 H (1.3-7.7) k/uL Sodium 132 L (137-145) mmol/L Potassium 5.9 H (3.5-5.1) mmol/L Carbon Dioxide 19 L (22-30) mmol/L Creatinine 0.46 L (0.52-1.04) mg/dL Glucose 218 H (74-99) mg/dL AST 57 H (14-36) U/L Urine Glucose (UA) 4+ H (Negative) Urine Ketones 2+ H (Negative) Assessment and Plan Assessment: 24 week fibroid uterus with exquisite abdominal pain. Multiple medical issues including obesity, seizure disorder, type 2 diabetes, hypertension, asthma. Potassium 5.9 noted, hemoglobin 9.4. Medical consultation in progress. Plan: For medical management and pain management tonight. MASOOD in the morning, possible BSO. Ovaries to remain in situ if within normal limits to inspection. Vertical incision versus low transverse incision decision to be made under anest hesia. All risks benefits and alternatives discussed with the patient in detail. All questions answered. Anesthesia and operating room team aware. Time with Patient: Greater than 30
[2020-06-29 17:56] LABS: Glucose,Whole Blood 172 mg/dL (75-99)
[2020-06-29] MEDS: INSULIN ASPART (NovoLOG) 100 UNIT/ML VIAL SQ SCH ×2 (18:01→20:32)
[2020-06-29] MEDS: IPRATROPIUM-ALBUTEROL 3 ML NEB INHALATION SCH (19:50)
[2020-06-29 20:26] LABS: Glucose,Whole Blood 179 mg/dL (75-99)
[2020-06-29] MEDS: MONTELUKAST 10 MG TAB PO SCH (20:26)
[2020-06-29] MEDS: METOPROLOL TARTRATE 25 MG TAB PO SCH (20:26)
[2020-06-29] MEDS: traZODone HCL 100 MG TAB PO SCH (20:26)
[2020-06-29] MEDS: HEPARIN SODIUM,PORCINE 5,000 UNIT/ML 1 ML VIAL SQ SCH (20:27)
[2020-06-29] MEDS: levETIRAcetam 500 MG TAB PO SCH (20:27)
[2020-06-29] MEDS: HYDROmorphone 1 MG/ML 1 ML SYRINGE IVP PRN (21:31)
[2020-06-29] MEDS: GABAPENTIN 100 MG CAP PO SCH (21:33)
[2020-06-30] MEDS: HYDROmorphone 1 MG/ML 1 ML SYRINGE IVP PRN (00:02)
[2020-06-30] MEDS ORDERED: HYDROmorphone 1 MG/ML 1 ML SYRINGE IVP STA (02:33)
[2020-06-30] MEDS: IPRATROPIUM-ALBUTEROL 3 ML NEB INHALATION SCH ×4 (05:20→20:36)
[2020-06-30 05:39] LABS: Glucose,Whole Blood 178 mg/dL (75-99)
[2020-06-30] MEDS: INSULIN ASPART (NovoLOG) 100 UNIT/ML VIAL SQ SCH ×4 (05:46→20:40)
[2020-06-30] MEDS ORDERED: IV FLUID CONTINUATION 1,000 ML IV ONE (06:05)
[2020-06-30] MEDS ORDERED: ONDANSETRON 4 MG/2 ML VIAL IVP ONE (06:33)
[2020-06-30] MEDS ORDERED: fentaNYL (PF) 50 MCG/ML 2 ML AMP IV ONE (06:33)
[2020-06-30] MEDS ORDERED: DEXAMETHASONE SOD PHOSPHATE 10 MG/ML 1 ML VIAL IV ONE (06:33)
[2020-06-30] MEDS ORDERED: MIDAZOLAM 2 MG/2 ML VIAL IV ONE (06:44)
[2020-06-30 06:55] LABS: Glucose,Whole Blood 175 mg/dL (75-99)
[2020-06-30] MEDS ORDERED: LIDOCAINE 1% INJ 10MG/ML (20 ML MDV) ONE (06:55)
[2020-06-30] MEDS ORDERED: INSULIN REGULAR 100 UNIT/ML VIAL ONE (06:55)
[2020-06-30] MEDS ORDERED: ceFAZolin 1,000 MG VIAL ONE (06:55)
[2020-06-30] MEDS ORDERED: MIDAZOLAM 2 MG/2 ML VIAL ONE (06:55)
[2020-06-30] MEDS ORDERED: PROPOFOL 10 MG/ML 20 ML VIAL IV ONE (06:55)
[2020-06-30] MEDS ORDERED: fentaNYL (PF) 50 MCG/ML 2 ML AMP ONE (06:55)
[2020-06-30] MEDS ORDERED: MORPHINE SULFATE (PF) 0.3 MG/0.3 ML SYR ONE (06:55)
[2020-06-30] MEDS ORDERED: ROCURONIUM BROMIDE 10 MG/ML 5 ML VIAL IV ONE (06:55)
[2020-06-30] MEDS ORDERED: SUCCINYLCHOLINE CHLORIDE 100 MG/5 ML SYR IV ONE (06:55)
[2020-06-30] MEDS ORDERED: SODIUM CHLORIDE 0.9% 50 ML with ceFAZolin 3,000 MG IV ONE ×2 (06:59)
[2020-06-30] MEDS ORDERED: LACTATED RINGERS 1,000 ML IV ONE ×3 (07:10→08:39)
[2020-06-30] MEDS ORDERED: NALBUPHINE 10 MG/ML (1 ML AMP) IV PRN (07:16)
[2020-06-30] MEDS ORDERED: NALOXONE 0.4 MG/ML 1 ML VIAL IV PRN (07:16)
[2020-06-30] MEDS ORDERED: MORPHINE SULFATE 2 MG/ML SYRINGE IVP PRN (07:16)
--- NOTE | 2020-06-30 07:16 | P.ANPRN ---
Procedure Note - Anesthesia - Epidural/Spinal Spinal Time Out Performed: Yes Date of Procedure: 06/30/20 Procedure Start Time: 06:44 Procedure Stop Time: 06:49 Location of Patient: PreOp Sedation Type: Sedate with meaningful contact maintained Preparation: Sterile Prep Position: Sitting Needle Guage: 25 Injectate: Other (duramorph 400 mcg) Blood Aspirated: No Pain Paresthesia on Injection Noted: No Events: Uneventful and Well Tolerated
[2020-06-30] MEDS ORDERED: SODIUM CHLORIDE 0.9% 250 ML IV ONE (08:15)
--- NOTE | 2020-06-30 08:58 | P.GSCN ---
History of Present Illness Consult date: 06/29/20 Reason for Consult: Abdominal pain History of present illness: 's of 40-year-old female who had complaints of abdominal pain. She states her p ain was sudden last night. She states the pain was a 10 out of 10. She denies any nausea or vomiting. Patient CAT scan performed showed a markedly enlarged uterus with a questionable fluid collection or fibroid. She denies any dysfunctional uterine bleeding. Past Medical History Past Medical History: Asthma, Chest Pain / Angina, Diabetes Mellitus, GERD/R eflux, Hypertension, Musculoskeletal Disorder, Pneumonia, Seizure Disorder Additional Past Medical History / Comment(s): Hx Bronchitis, Seasonal Allergies., NIDDM type II, seizure as a child with fever and last seizure over 3 yrs ago., migraines, chronic low back pain , heart murmur, Hx UTI's. History of Any Multi-Drug Resistant Organisms: MRSA Year Discovered:: 05/11/18 MDRO Source:: BACK Past Surgical History: Cholecystectomy, Hernia Repair Additional Past Surgical History / Comment(s): 3 ABDOMINAL HERNIAS REPAIRED, colonoscopy, pain injections. Past Anesthesia/Blood Transfusion Reactions: Motion Sickness Past Psychological History: Anxiety, Depression Smoking Status: Current every day smoker Past Alcohol Use History: None Reported Past Drug Use History: None Reported - Past Family History Father Family Medical History: Cancer Additional Family Medical History / Comment(s): FATHER OF THROAT [place] Mother Family Medical History: Asthma, COPD Additional Family Medical History / Comment(s): . Medications and Allergies Home Medications Medication Instructions Recorded Confirmed Type Ferrous Sulfate [Iron (65 MG 325 mg PO DAILY 06/03/19 06/29/20 History Elemental)] Desvenlafaxine Succinate [Pristiq] 200 mg PO DAILY 10/30/19 06/29/20 History Gabapentin [Neurontin] 200 mg PO TID 10/30/19 06/29/20 History levETIRAcetam [Keppra] 500 mg PO BID #60 tab 06/16/20 06/29/20 Rx Albuterol Sulfate [Albuterol 2 puff PO RT-Q4H PRN 06/29/20 06/29/20 History Sulfate Hfa] Metoprolol Tartrate [Lopressor] 25 mg PO BID 06/29/20 06/29/20 History Montelukast [Singulair] 10 mg PO HS 06/29/20 06/29/20 History glipiZIDE [Glucotrol] 5 mg PO BID 06/29/20 06/29/20 History lisinopriL 40 mg PO DAILY 06/29/20 06/29/20 History metFORMIN HCL 1,000 mg PO BID-W/MEALS 06/29/20 06/29/20 History traZODone HCL 150 mg PO HS 06/29/20 06/29/20 History Allergies Allergy/AdvReac Type Severity Reaction Status Date / Time peanut Allergy Anaphylaxis Verified 06/29/20 13:45 egg yolk AdvReac Mild Itching- Verified 06/29/20 13:45 FROM RAW EGG YOLK influenza virus vaccine, AdvReac Unknown-ALLERGIC Verified 06/29/20 13:45 specific TO EGGS [Influenza Virus Vacc,Specific] Surgical - Exam Vital Signs Temp Pulse Resp BP Pulse Ox 98.1 F 103 H 18 109/61 99 06/29/20 07:44 06/29/20 07:44 06/29/20 07:44 06/29/20 07:44 06/29/20 07:44 - General well developed, no distress - Eyes PERRL - ENT normal pinna - Neck no masses - Respiratory normal expansion - Cardiovascular Rhythm: regular - Abdomen Mild tenderness left lower quadrant. There is no rebound or guarding. Abdomen: soft Results - Labs 06/29/20 09:38 06/29/20 17:20 Abnormal Lab Results - Last 24 Hours (Table) 06/29/20 06/29/20 06/29/20 Range/Units 08:30 08:30 09:38 WBC 15.8 H (3.8-10.6) k/uL Hgb 9.4 L (11.4-16.0) gm/dL Hct 30.6 L (34.0-46.0) % MCV 66.0 L (80.0-100.0) fL MCH 20.2 L (25.0-35.0) pg MCHC 30.7 L (31.0-37.0) g/dL RDW 16.9 H (11.5-15.5) % Neutrophils # 12.9 H (1.3-7.7) k/uL Sodium 132 L (137-145) mmol/L Potassium 5.9 H (3.5-5.1) mmol/L Carbon Dioxide 19 L (22-30) mmol/L Creatinine 0.46 L (0.52-1.04) mg/dL Glucose 218 H (74-99) mg/dL POC Glucose (mg/dL) (75-99) mg/dL AST 57 H (14-36) U/L Urine Glucose (UA) 4+ H (Negative) Urine Ketones 2+ H (Negative) Crossmatch 06/29/20 06/29/20 06/30/20 Range/Units 17:52 20:25 05:38 WBC (3.8-10.6) k/uL Hgb (11.4-16.0) gm/dL Hct (34.0-46.0) % MCV (80.0-100.0) fL MCH (25.0-35.0) pg MCHC (31.0-37.0) g/dL RDW (11.5-15.5) % Neutrophils # (1.3-7.7) k/uL Sodium (137-145) mmol/L Potassium (3.5-5.1) mmol/L Carbon Dioxide (22-30) mmol/L Creatinine (0.52-1.04) mg/dL Glucose (74-99) mg/dL POC Glucose (mg/dL) 172 H 179 H 178 H (75-99) mg/dL AST (14-36) U/L Urine Glucose (UA) (Negative) Urine Ketones (Negative) Crossmatch 06/30/20 06/30/20 Range/Units 06:24 06:54 WBC (3.8-10.6) k/uL Hgb (11.4-16.0) gm/dL Hct (34.0-46.0) % MCV (80.0-100.0) fL MCH (25.0-35.0) pg MCHC (31.0-37.0) g/dL RDW (11.5-15.5) % Neutrophils # (1.3-7.7) k/uL Sodium (137-145) mmol/L Potassium (3.5-5.1) mmol/L Carbon Dioxide (22-30) mmol/L Creatinine (0.52-1.04) mg/dL Glucose (74-99) mg/dL POC Glucose (mg/dL) 175 H (75-99) mg/dL AST (14-36) U/L Urine Glucose (UA) (Negative) Urine Ketones (Negative) Crossmatch See Detail Diabetes panel 06/29/20 06/29/20 Range/Units 08:30 17:20 Sodium 132 L (137-145) mmol/L Potassium 5.9 H 4.3 (3.5-5.1) mmol/L Chloride 102 (98-107) mmol/L Carbon Dioxide 19 L (22-30) mmol/L BUN 13 (7-17) mg/dL Creatinine 0.46 L (0.52-1.04) mg/dL Glucose 218 H (74-99) mg/dL Calcium 9.3 (8.4-10.2) mg/dL AST 57 H (14-36) U/L ALT 16 (4-34) U/L Alkaline Phosphatase 71 (38-126) U/L Total Protein 7.1 (6.3-8.2) g/dL Albumin 4.2 (3.5-5.0) g/dL Calcium panel 06/29/20 Range/Units 08:30 Calcium 9.3 (8.4-10.2) mg/dL Albumin 4.2 (3.5-5.0) g/dL Pituitary panel 06/29/20 06/29/20 Range/Units 08:30 17:20 Sodium 132 L (137-145) mmol/L Potassium 5.9 H 4.3 (3.5-5.1) mmol/L Chloride 102 (98-107) mmol/L Carbon Dioxide 19 L (22-30) mmol/L BUN 13 (7-17) mg/dL Creatinine 0.46 L (0.52-1.04) mg/dL Glucose 218 H (74-99) mg/dL Calcium 9.3 (8.4-10.2) mg/dL Adrenal panel 06/29/20 06/29/20 Range/Units 08:30 17:20 Sodium 132 L (137-145) mmol/L Potassium 5.9 H 4.3 (3.5-5.1) mmol/L Chloride 102 (98-107) mmol/L Carbon Dioxide 19 L (22-30) mmol/L BUN 13 (7-17) mg/dL Creatinine 0.46 L (0.52-1.04) mg/dL Glucose 218 H (74-99) mg/dL Calcium 9.3 (8.4-10.2) mg/dL Total Bilirubin 0.8 (0.2-1.3) mg/dL AST 57 H (14-36) U/L ALT 16 (4-34) U/L Alkaline Phosphatase 71 (38-126) U/L Total Protein 7.1 (6.3-8.2) g/dL Albumin 4.2 (3.5-5.0) g/dL Assessment and Plan Assessment: Abdominal pain most likely due to enlarged uterus/fibroid. Patient will be evaluated by the BALLING MACHINE OPERATOR service. No general surgical intervention is planned.
[2020-06-30] MEDS ORDERED: diphenhydrAMINE 50 MG/ML 1 ML VIAL IVP PRN (09:00)
[2020-06-30] MEDS ORDERED: SIMETHICONE 80 MG CHEWABLE PO PRN (09:00)
--- NOTE | 2020-06-30 09:00 | P.OP ---
Date of Procedure: 06/30/20 Preoperative Diagnosis: Enlarged fibroid uterus, suspect degenerating fibroids, severe abdominal pain. Multiple medical issues. Postoperative Diagnosis: Same, normal-appearing ovaries bilaterally. Procedure(s) Performed: Total abdominal hysterectomy Anesthesia: SRINIVAS Surgeon: Deonna Chatman Cement Patcher #1: Norberto Garduno Estimated Blood Loss (ml): 500 IV fluids (ml): 2,000 Urine output (ml): 200 Pathology: other (Cervix and uterus) Condition: stable Disposition: PACU Operative Findings: Normal-appearing ovaries bilaterally. Description of Procedure: Patient is brought to the operating suite where a general anesthetic is administered after spinal with Duramorph placed preoperatively. The appropriate timeout is performed to assure proper patient and procedural identification. Urine hCG is negative. 3 g of Ancef are given. The cervix, vagina, and abdomen are all prepped and draped in the usual sterile fashion. A low transverse skin incision is made in this is carried down through the subcutaneous tissue which is approximately 8 cm in depth. Fascia is isolated, scored, extended bilaterally with curved Graham scissors. Peritoneum is next identified and incised, there is no bowel or bladder involvement. The uterus is at the level of the umbilicus. The left round ligament is identified, clamped cut and suture ligated. The left infundibulopelvic ligament is identified, clamped cut and suture ligated through a clear window of peritoneum. Ovaries are left in situ per the patient's wishes. The same procedure is carried out on the right round ligament and infundibulopelvic ligament. Bladder flap was then created with Metzenbaum scissors and the bladder is at all times Well from the operative field to avoid bladder and/or ureteral injury. Uterine vasculature is identified and skeletonized, clamped cut and suture ligated. Straight Heaneys are used now inferior to the vessels an additional pedicles are taken across the uterosacral cardinal ligament comp quinten. The uterus is then removed with a scalpel above the cervical stump. The stump is grasped with Jbphh clamps. 2 additional pedicles are taken with straight Dany clamps, and then round Heaneys are used around the rest of the stump and it is removed and sent to pathology along with the uterus. 0 Vicryl sutures used for the entire hysterectomy portion of the procedure. These last pedicles are tied securely. Urine is noted to be draining clear in the bladder. The pelvis is generously irrigated and all pedicles are once again review reinspected and noted to be clean and dry. The peritoneum was allowed to close by secondary intention. The fascia is closed in a running stitch of 0 Vicryl suture. Subcutaneous tissue is deep, it is irrigated, noted to be hemostatically intact. 3-0 Vicryl is used in a running fashion to attempt to eliminate the space. 4-0 undyed Monocryl is used for final skin closure in a subcuticular fashion. Steri-Strips and Mastisol are applied to the wound. Throughout the case, hemoglobin was rechecked and noted to be 7. One unit of packed red blood cells was given at this time. Total estimated blood loss 500 mL's. Fluid replacement 2000 mL cr ystalloids along with one unit of packed red blood cells. Total urine output 200 mL, clear urine. Patient is brought back to recovery room in stable condition with a blood pressure of 109/51, pulse 79, 100% O2 saturation.
[2020-06-30 09:27] LABS: Glucose,Whole Blood 210 mg/dL (75-99)
[2020-06-30] MEDS: HYDROmorphone 0.5 MG/0.5 ML SYRINGE IVP PRN (09:36)
[2020-06-30 12:43] LABS: Glucose,Whole Blood 177 mg/dL (75-99)
[2020-06-30 12:59] LABS: Anisocytosis Slight; Basophils % (A) 0 %; Eosinophils % (A) 0 %; HCT 31.8 % (34.0-46.0); HGB 9.2 gm/dL (11.4-16.0); Hypochromasia Marked; Lymphocytes # (A) 0.6 k/uL (1.0-4.8); Lymphocytes % (A) 4 %; MCH 20.1 pg (25.0-35.0); MCHC 29.1 g/dL (31.0-37.0); MCV 69.2 fL (80.0-100.0); Mean Platelet Volume 7.4; Microcytosis Marked; Monocytes # (A) 0.6 k/uL (0-1.0); Monocytes % (A) 4 %; Neutrophils # (A) 13.5 k/uL (1.3-7.7); Neutrophils % (A) 91 %; Platelet Count 277 k/uL (150-450); Poikilocytosis Slight; RDW 17.6 % (11.5-15.5); WBC 14.9 k/uL (3.8-10.6)
[2020-06-30] MEDS: FERROUS SULFATE 325 MG TAB PO SCH (12:59)
[2020-06-30] MEDS: GABAPENTIN 100 MG CAP PO SCH ×3 (12:59→20:42)
[2020-06-30] MEDS: DESVENLAFAXINE SUCCINATE 50 MG TAB.ER.24H PO SCH (13:00)
[2020-06-30] MEDS: METOPROLOL TARTRATE 25 MG TAB PO SCH ×2 (13:01→20:41)
[2020-06-30] MEDS: levETIRAcetam 500 MG TAB PO SCH ×2 (13:01→20:41)
[2020-06-30] MEDS: HEPARIN SODIUM,PORCINE 5,000 UNIT/ML 1 ML VIAL SQ SCH ×2 (13:01→20:41)
[2020-06-30 13:08] LABS: African American GFR (CKD) >90 (>60 ml/min/1.73 sqM); Anion Gap 6 mmol/L; Blood Urea Nitrogen 8 mg/dL (7-17); Calcium 7.6 mg/dL (8.4-10.2); Carbon Dioxide 22 mmol/L (22-30); Chloride 105 mmol/L (98-107); Glucose 159 mg/dL (74-99); Non-African American GFR(CKD) >90 (>60 ml/min/1.73 sqM); Potassium 4.5 mmol/L (3.5-5.1); Sodium 133 mmol/L (137-145)
--- NOTE | 2020-06-30 16:04 | P.PN ---
Subjective Progress Note Date: 06/30/20 Patient is sleepy but easily arousable. She had her surgery this morning. Pain is well controlled. Objective - Vital Signs Vital signs: Vital Signs Temp 98.9 F 06/30/20 10:10 Pulse 100 06/30/20 13:55 Resp 16 06/30/20 14:00 BP 109/63 06/30/20 13:55 Pulse Ox 96 06/30/20 14:00 Intake & Output 06/29/20 06/30/20 06/30/20 18:59 06:59 18:59 Intake Total 1150 1760 Output Total 1200 Balance 1150 560 Weight 117.3 kg Intake: IV 1150 1450 Oral 0 Blood Product 310 Rc As-1 Unit 310 [id number] Output: Urine 700 Estimated Blood Loss 500 Other: # Voids 1 2 # Bowel Movements 2 - Exam General: The patient is awake and alert, in no distress Eye: there is normal conjunctiva bilaterally. Neck: The neck is supple, there is no JVD. Cardiovascular: Normal S1-S2, no S3-S4, no murmurs. Respiratory: Lungs clear to auscultation bilaterally Gastrointestinal: Abdomen is soft, nontender Musculoskeletal: There is no pedal edema. Neurological:. Speech is normal. Skin: Skin is warm and dry - Labs CBC & Chem 7: 06/30/20 12:32 06/30/20 12:32 Labs: Abnormal Lab Results - Last 24 Hours (Table) 06/29/20 06/29/20 06/30/20 Range/Units 17:52 20:25 05:38 WBC (3.8-10.6) k/uL Hgb (11.4-16.0) gm/dL Hct (34.0-46.0) % MCV (80.0-100.0) fL MCH (25.0-35.0) pg MCHC (31.0-37.0) g/dL RDW (11.5-15.5) % Neutrophils # (1.3-7.7) k/uL Lymphocytes # (1.0-4.8) k/uL Sodium (137-145) mmol/L Creatinine (0.52-1.04) mg/dL Glucose (74-99) mg/dL POC Glucose (mg/dL) 172 H 179 H 178 H (75-99) mg/dL Calcium (8.4-10.2) mg/dL Crossmatch 06/30/20 06/30/20 06/30/20 Range/Units 06:24 06:54 09:22 WBC (3.8-10.6) k/uL Hgb (11.4-16.0) gm/dL Hct (34.0-46.0) % MCV (80.0-100.0) fL MCH (25.0-35.0) pg MCHC (31.0-37.0) g/dL RDW (11.5-15.5) % Neutrophils # (1.3-7.7) k/uL Lymphocytes # (1.0-4.8) k/uL Sodium (137-145) mmol/L Creatinine (0.52-1.04) mg/dL Glucose (74-99) mg/dL POC Glucose (mg/dL) 175 H 210 H (75-99) mg/dL Calcium (8.4-10.2) mg/dL Crossmatch See Detail 06/30/20 06/30/20 06/30/20 Range/Units 12:32 12:32 12:39 WBC 14.9 H (3.8-10.6) k/uL Hgb 9.2 L (11.4-16.0) gm/dL Hct 31.8 L (34.0-46.0) % MCV 69.2 L (80.0-100.0) fL MCH 20.1 L (25.0-35.0) pg MCHC 29.1 L (31.0-37.0) g/dL RDW 17.6 H (11.5-15.5) % Neutrophils # 13.5 H (1.3-7.7) k/uL Lymphocytes # 0.6 L (1.0-4.8) k/uL Sodium 133 L (137-145) mmol/L Creatinine 0.40 L (0.52-1.04) mg/dL Glucose 159 H (74-99) mg/dL POC Glucose (mg/dL) 177 H (75-99) mg/dL Calcium 7.6 L (8.4-10.2) mg/dL Crossmatch Assessment and Plan Assessment: 1. Markedly enlarged uterus with questionable degenerating mass noted on computed tomography scan of the abdomen. Postoperative day #0 status post hysterectomy. Postoperative care per CLAIMS SUPPORT SPECIALIST. 2. Hyperkalemia: With slight hemolysis. Resolved. 3. Type 2 diabetes, hold oral agents and continue sliding scale insulin. Relatively well controlled. A1c on 06/21 7.6 4. Essential hypertension: Blood pressure within acceptable range. We will hold lisinopril for now in setting of hyperkalemia. Continue to monitor BP closely. 5. Underlying COPD: With no evidence of exacerbation. Continue bronchodilators as needed 6. History of seizure disorder, on Keppra. Keppra level pending DVT prophylaxis with subcu heparin
[2020-06-30] MEDS: IBUPROFEN 600 MG TAB PO PRN (17:03)
[2020-06-30 17:28] LABS: Glucose,Whole Blood 180 mg/dL (75-99)
[2020-06-30 20:38] LABS: Glucose,Whole Blood 151 mg/dL (75-99)
[2020-06-30] MEDS: MONTELUKAST 10 MG TAB PO SCH (20:41)
[2020-06-30] MEDS: traZODone HCL 100 MG TAB PO SCH (22:17)
[2020-07-01] MEDS: IBUPROFEN 600 MG TAB PO PRN ×3 (06:13→22:09)
[2020-07-01 07:13] LABS: Glucose,Whole Blood 160 mg/dL (75-99)
[2020-07-01] MEDS: INSULIN ASPART (NovoLOG) 100 UNIT/ML VIAL SQ SCH ×4 (07:14→22:16)
[2020-07-01 07:37] LABS: Anisocytosis Slight; Basophils % (A) 0 %; Eosinophils # (A) 0.2 k/uL (0-0.7); Eosinophils % (A) 2 %; HCT 28.4 % (34.0-46.0); HGB 8.5 gm/dL (11.4-16.0); Hypochromasia Marked; Lymphocytes % (A) 9 %; MCH 20.4 pg (25.0-35.0); MCHC 29.9 g/dL (31.0-37.0); MCV 68.3 fL (80.0-100.0); Mean Platelet Volume 7.1; Microcytosis Marked; Monocytes # (A) 0.6 k/uL (0-1.0); Monocytes % (A) 6 %; Neutrophils # (A) 8.7 k/uL (1.3-7.7); Neutrophils % (A) 80 %; Platelet Count 290 k/uL (150-450); Poikilocytosis Slight; RBC 4.16 m/uL (3.80-5.40); RDW 17.7 % (11.5-15.5); WBC 10.8 k/uL (3.8-10.6)
[2020-07-01] MEDS ORDERED: ACETAMINOPHEN TAB 500 MG TAB PO PRN (07:47)
[2020-07-01 07:48] LABS: African American GFR (CKD) >90 (>60 ml/min/1.73 sqM); Anion Gap 6 mmol/L; Blood Urea Nitrogen 6 mg/dL (7-17); Calcium 7.7 mg/dL (8.4-10.2); Carbon Dioxide 24 mmol/L (22-30); Chloride 102 mmol/L (98-107); Glucose 155 mg/dL (74-99); Non-African American GFR(CKD) >90 (>60 ml/min/1.73 sqM); Potassium 3.8 mmol/L (3.5-5.1); Sodium 132 mmol/L (137-145)
[2020-07-01] MEDS: HYDROcodone/APAP 5-325MG 1 EACH TAB PO PRN ×3 (08:16→17:56)
[2020-07-01] MEDS: IPRATROPIUM-ALBUTEROL 3 ML NEB INHALATION SCH ×4 (09:07→20:38)
--- NOTE | 2020-07-01 09:08 | P.DS ---
Providers Date of admission: 06/30/20 12:34 Expected date of discharge: 07/01/20 Attending physician: Eligio Marrero MD Consults: 06/29/20 12:23 Consult Physician Urgent Consulting Provider: Deonna Chatman Consult Reason/Comments: Degenerating uterine fibroid Do you want consulting provider notified?: Already Contacted Primary care physician: [facility] Hospital Course: This is a 40-year-old female who presented to the emergency room with excruciating abdominal pain. Workup revealed massively enlarged fibroid uterus, suspected degenerating fibroids. Multiple medical problems were noted, medical consultation was obtained. Patient was given breathing treatments, and electrolyte correction in preparation for surgery. Please see dictated history and physical for details. On the morning of 06/30/2020 she was taken to the operating room where an exploratory laparotomy was performed and a total abdominal hysterectomy. Ovaries appeared normal and were left in situ. She did well intraoperatively, estimated blood loss 500 mL's. She did receive 1 unit of packed red blood cells. Please see dictated operative note for details. This morning the patient feels greatly improved. The incision is clean and dry and intact, with long Steri-Strips applied. Her chest is clear. She has active bowel sounds. Extremities are negative for edema. Vital signs upon stable and she has remained afebrile. I discussed with her discharge home later tonight versus discharge in the morning, and patient would like to go home later tonight. She may be discharged after dinner as long as she is passing flatus and tolerating regular food, and voiding. She will follow-up with me in the office in 2 weeks. I have reminded her no intercourse, tampons or douching. No d riving for 2 weeks. No heavy lifting. She will use [id number] ibuprofen products, 800 mg of Motrin every 8 hours alternating with Tylenol, 1000 mg every 8 hours. She will call with any fevers shakes or chills, foul smelling or heavy vaginal bleeding, with any incision and drainage or redness, or with any pain not alleviated by [id number] products. I have discussed with her [facility] toilet, and she will take the Tri-Flow with her and continue to use it at home. She will resume all home medications, with care to keep a normal blood sugar and stop smoking in order to promote healthy healing. All questions answered. Assessment: Doing well postoperative day #1 Patient Condition at Discharge: Good Plan - Discharge Summary Discharge Rx Participant: No New Discharge Prescriptions: No Action Ferrous Sulfate [Iron (65 MG Elemental)] 325 mg PO DAILY Gabapentin [Neurontin] 200 mg PO TID Desvenlafaxine Succinate [Pristiq] 200 mg PO DAILY levETIRAcetam [Keppra] 500 mg PO BID #60 tab Montelukast [Singulair] 10 mg PO HS metFORMIN HCL 1,000 mg PO BID-W/MEALS lisinopriL 40 mg PO DAILY Metoprolol Tartrate [Lopressor] 25 mg PO BID glipiZIDE [Glucotrol] 5 mg PO BID Albuterol Sulfate [Albuterol Sulfate Hfa] 2 puff PO RT-Q4H PRN PRN Reason: Shortness Of Breath traZODone HCL 150 mg PO HS Discharge Medication List Ferrous Sulfate [Iron (65 MG Elemental)] 325 mg PO DAILY 06/03/19 [History] Desvenlafaxine Succinate [Pristiq] 200 mg PO DAILY 10/30/19 [History] Gabapentin [Neurontin] 200 mg PO TID 10/30/19 [History] levETIRAcetam [Keppra] 500 mg PO BID #60 tab 06/16/20 [Rx] Albuterol Sulfate [Albuterol Sulfate Hfa] 2 puff PO RT-Q4H PRN 06/29/20 [History] Metoprolol Tartrate [Lopressor] 25 mg PO BID 06/29/20 [History] Montelukast [Singulair] 10 mg PO HS 06/29/20 [History] glipiZIDE [Glucotrol] 5 mg PO BID 06/29/20 [History] lisinopriL 40 mg PO DAILY 06/29/20 [History] metFORMIN HCL 1,000 mg PO BID-W/MEALS 06/29/20 [History] traZODone HCL 150 mg PO HS 06/29/20 [History] Follow up Appointment(s)/Referral(s): Damion Dhaliwal [Primary Care Provider] - 2 Weeks (niver) Patient Instructions/Handouts: Hysterectomy (DC) Activity/Diet/Wound Care/Special Instructions: No intercourse, tampons or douching. No driving or heavy lifting for 2 weeks. Discharge Disposition: HOME SELF-CARE
--- NOTE | 2020-07-01 09:18 | P.PN ---
Progress Note - Text Progress Note Date: 07/01/20 Postoperative day 1 status post total abdominal hysterectomy under general endo tracheal anesthesia, and intrathecal morphine given for postoperative analgesia, patient doing well, there is no anesthesia related complications, Patient had no headache, vital signs stable , Assessment and plan= postop day 1 status post total abdominal hysterectomy, doing well there is no anesthesia related complication.
[2020-07-01] MEDS: DESVENLAFAXINE SUCCINATE 50 MG TAB.ER.24H PO SCH (09:41)
[2020-07-01] MEDS: levETIRAcetam 500 MG TAB PO SCH ×2 (09:43→22:10)
[2020-07-01] MEDS: METOPROLOL TARTRATE 25 MG TAB PO SCH (09:44)
[2020-07-01] MEDS: FERROUS SULFATE 325 MG TAB PO SCH (09:44)
[2020-07-01] MEDS: GABAPENTIN 100 MG CAP PO SCH ×3 (09:44→22:10)
[2020-07-01] MEDS: HEPARIN SODIUM,PORCINE 5,000 UNIT/ML 1 ML VIAL SQ SCH ×2 (09:44→22:18)
--- NOTE | 2020-07-01 10:20 | P.PN ---
Subjective Progress Note Date: 07/01/20 Patient is doing well today. She is still using [place] for pain. She is not passing gas as of yet. Blood pressure borderline low this morning. Patient said that she is not sure whether she takes metoprolol at home even though insisted on her home medication list. Objective - Vital Signs Vital signs: Vital Signs Temp 98.7 F 07/01/20 08:20 Pulse 88 07/01/20 09:19 Resp 18 07/01/20 08:20 BP 112/64 07/01/20 10:06 Pulse Ox 95 07/01/20 08:20 Intake & Output 06/30/20 07/01/20 07/01/20 18:59 06:59 18:59 Intake Total 1760 Output Total 1200 1450 Balance 560 -1450 Intake: IV 1450 Blood Product 310 Rc As-1 Unit 310 [id number] Output: Urine 700 1450 Uretheral ([place]) 750 Estimated Blood Loss 500 Other: Voiding Method Indwelling Catheter Toilet - Exam General: The patient is awake and alert, in no distress Eye: there is normal conjunctiva bilaterally. Neck: The neck is supple, there is no JVD. Cardiovascular: Normal S1-S2, no S3-S4, no murmurs. Respiratory: Lungs clear to auscultation bilaterally Gastrointestinal: Abdomen is soft, nontender Musculoskeletal: There is no pedal edema. Neurological:. Speech is normal. Skin: Skin is warm and dry - Labs CBC & Chem 7: 07/01/20 07:11 07/01/20 07:11 Labs: Abnormal Lab Results - Last 24 Hours (Table) 06/30/20 06/30/20 06/30/20 Range/Units 06:24 12:32 12:32 WBC 14.9 H (3.8-10.6) k/uL Hgb 9.2 L (11.4-16.0) gm/dL Hct 31.8 L (34.0-46.0) % MCV 69.2 L (80.0-100.0) fL MCH 20.1 L (25.0-35.0) pg MCHC 29.1 L (31.0-37.0) g/dL RDW 17.6 H (11.5-15.5) % Neutrophils # 13.5 H (1.3-7.7) k/uL Lymphocytes # 0.6 L (1.0-4.8) k/uL Sodium 133 L (137-145) mmol/L BUN (7-17) mg/dL Creatinine 0.40 L (0.52-1.04) mg/dL Glucose 159 H (74-99) mg/dL POC Glucose (mg/dL) (75-99) mg/dL Calcium 7.6 L (8.4-10.2) mg/dL Crossmatch See Detail 06/30/20 06/30/20 06/30/20 Range/Units 12:39 17:26 20:36 WBC (3.8-10.6) k/uL Hgb (11.4-16.0) gm/dL Hct (34.0-46.0) % MCV (80.0-100.0) fL MCH (25.0-35.0) pg MCHC (31.0-37.0) g/dL RDW (11.5-15.5) % Neutrophils # (1.3-7.7) k/uL Lymphocytes # (1.0-4.8) k/uL Sodium (137-145) mmol/L BUN (7-17) mg/dL Creatinine (0.52-1.04) mg/dL Glucose (74-99) mg/dL POC Glucose (mg/dL) 177 H 180 H 151 H (75-99) mg/dL Calcium (8.4-10.2) mg/dL Crossmatch 07/01/20 07/01/20 07/01/20 Range/Units 07:11 07:11 07:11 WBC 10.8 H (3.8-10.6) k/uL Hgb 8.5 L (11.4-16.0) gm/dL Hct 28.4 L (34.0-46.0) % MCV 68.3 L (80.0-100.0) fL MCH 20.4 L (25.0-35.0) pg MCHC 29.9 L (31.0-37.0) g/dL RDW 17.7 H (11.5-15.5) % Neutrophils # 8.7 H (1.3-7.7) k/uL Lymphocytes # (1.0-4.8) k/uL Sodium 132 L (137-145) mmol/L BUN 6 L (7-17) mg/dL Creatinine 0.44 L (0.52-1.04) mg/dL Glucose 155 H (74-99) mg/dL POC Glucose (mg/dL) 160 H (75-99) mg/dL Calcium 7.7 L (8.4-10.2) mg/dL Crossmatch Assessment and Plan Assessment: 1. Markedly enlarged uterus with questionable degenerating mass noted on computed tomography scan of the abdomen. Postoperative day #1 status post hysterectomy. Postoperative care per [employer] PLACER. 2. Hyperkalemia: With slight hemolysis. Resolved. 3. Type 2 diabetes, hold oral agents and continue sliding scale insulin. Relatively well controlled. A1c on 06/21 7.6 4. Essential hypertension: Blood pressure within acceptable range. Resume lisinopril 10 mg daily. Discontinue metoprolol. Continue to monitor BP closely. 5. Underlying COPD: With no evidence of exacerbation. Continue bronchodilators as needed 6. History of seizure disorder, on Keppra. Keppra level pending DVT prophylaxis with subcu heparin Encouraged ambulation. Anticipate discharge home tomorrow.
[2020-07-01] MEDS: lisinopriL 10 MG TAB PO SCH (10:37)
[2020-07-01 12:28] LABS: Glucose,Whole Blood 197 mg/dL (75-99)
[2020-07-01 17:49] LABS: Glucose,Whole Blood 151 mg/dL (75-99)
[2020-07-01 20:00] VITALS: RESP 16
[2020-07-01 22:09] LABS: Glucose,Whole Blood 187 mg/dL (75-99)
[2020-07-01] MEDS: MONTELUKAST 10 MG TAB PO SCH (22:11)
[2020-07-01] MEDS: traZODone HCL 100 MG TAB PO SCH (22:18)
[2020-07-02] MEDS: HYDROcodone/APAP 5-325MG 1 EACH TAB PO PRN ×2 (04:14→09:20)
[2020-07-02 06:06] LABS: Anisocytosis Slight; Basophils % (A) 0 %; Eosinophils # (A) 0.4 k/uL (0-0.7); Eosinophils % (A) 4 %; HCT 29.1 % (34.0-46.0); HGB 8.5 gm/dL (11.4-16.0); Hypochromasia Marked; Lymphocytes # (A) 1.4 k/uL (1.0-4.8); Lymphocytes % (A) 15 %; MCH 20.6 pg (25.0-35.0); MCHC 29.3 g/dL (31.0-37.0); MCV 70.2 fL (80.0-100.0); Microcytosis Marked; Monocytes # (A) 0.6 k/uL (0-1.0); Monocytes % (A) 7 %; Neutrophils # (A) 6.5 k/uL (1.3-7.7); Neutrophils % (A) 72 %; Platelet Count 324 k/uL (150-450); Poikilocytosis Slight; RBC 4.14 m/uL (3.80-5.40); RDW 17.4 % (11.5-15.5)
[2020-07-02 06:13] LABS: African American GFR (CKD) >90 (>60 ml/min/1.73 sqM); Anion Gap 5 mmol/L; Blood Urea Nitrogen 6 mg/dL (7-17); Calcium 7.7 mg/dL (8.4-10.2); Carbon Dioxide 28 mmol/L (22-30); Chloride 105 mmol/L (98-107); Glucose 145 mg/dL (74-99); Non-African American GFR(CKD) >90 (>60 ml/min/1.73 sqM); Potassium 3.7 mmol/L (3.5-5.1); Sodium 138 mmol/L (137-145)
[2020-07-02] MEDS: IBUPROFEN 600 MG TAB PO PRN (06:13)
[2020-07-02 06:17] LABS: Glucose,Whole Blood 164 mg/dL (75-99)
[2020-07-02] MEDS: INSULIN ASPART (NovoLOG) 100 UNIT/ML VIAL SQ SCH (06:53)
[2020-07-02] MEDS: IPRATROPIUM-ALBUTEROL 3 ML NEB INHALATION SCH ×2 (08:46→10:59)
[2020-07-02] MEDS: DESVENLAFAXINE SUCCINATE 50 MG TAB.ER.24H PO SCH (09:19)
[2020-07-02] MEDS: levETIRAcetam 500 MG TAB PO SCH (09:20)
[2020-07-02] MEDS: FERROUS SULFATE 325 MG TAB PO SCH (09:20)
[2020-07-02] MEDS: HEPARIN SODIUM,PORCINE 5,000 UNIT/ML 1 ML VIAL SQ SCH (09:21)
--- NOTE | 2020-07-02 10:02 | P.DS ---
Providers Date of admission: 06/30/20 12:34 Expected date of discharge: 07/02/20 Attending physician: Eligio Marrero MD Consults: 06/29/20 12:23 Consult Physician Urgent Consulting Provider: Deonna Chatman Consult Reason/Comments: Degenerating uterine fibroid Do you want consulting provider notified?: Already Contacted Primary care physician: Damion [facility] Hospital Course: This is a 40-year-old female with complex past medical history noted below who presented to the emergency room with worsening abdominal pain. Patient was evaluated in the ER and admitted for further management of her medical problems noted below. 1. Markedly enlarged uterus with questionable degenerating mass noted on computed tomography scan of the abdomen. Postoperative day #2 status post hysterectomy. Patient is doing well postoperatively. Pain is well-controlled. She was up ambulating with no difficulty. She was passing gas and tolerating regular diet. 2. Hyperkalemia: With slight hemolysis on presentation . Resolved. 3. Type 2 diabetes, Relatively well controlled. A1c on 06/21 7.6. Resume home medications. 4. Essential hypertension: on the lower and during this admission. Home dose of metoprolol discontinued. Lisinopril dose changed from 40 mg daily to 10 mg daily. Follow-up with PCP 5. Underlying COPD: With no evidence of exacerbation. Continue bronchodilators as needed 6. History of seizure disorder, on Keppra. Keppra level pending Patient will be discharged home in a stable condition. For further details about this hospitalization please refer to the electronic chart. Assessment: Doing well postoperative day #1 Patient Condition at Discharge: Good Plan - Discharge Summary Discharge Rx Participant: No New Discharge Prescriptions: New lisinopriL [Zestril] 10 mg PO DAILY #30 tab Continue Ferrous Sulfate [Iron (65 MG Elemental)] 325 mg PO DAILY Gabapentin [Neurontin] 200 mg PO TID Desvenlafaxine Succinate [Pristiq] 200 mg PO DAILY levETIRAcetam [Keppra] 500 mg PO BID #60 tab Montelukast [Singulair] 10 mg PO HS metFORMIN HCL 1,000 mg PO BID-W/MEALS glipiZIDE [Glucotrol] 5 mg PO BID Albuterol Sulfate [Albuterol Sulfate Hfa] 2 puff PO RT-Q4H PRN PRN Reason: Shortness Of Breath traZODone HCL 150 mg PO HS Discontinued lisinopriL 40 mg PO DAILY Metoprolol Tartrate [Lopressor] 25 mg PO BID Discharge Medication List Ferrous Sulfate [Iron (65 MG Elemental)] 325 mg PO DAILY 06/03/19 [History] Desvenlafaxine Succinate [Pristiq] 200 mg PO DAILY 10/30/19 [History] Gabapentin [Neurontin] 200 mg PO TID 10/30/19 [History] levETIRAcetam [Keppra] 500 mg PO BID #60 tab 06/16/20 [Rx] Albuterol Sulfate [Albuterol Sulfate Hfa] 2 puff PO RT-Q4H PRN 06/29/20 [History] Montelukast [Singulair] 10 mg PO HS 06/29/20 [History] glipiZIDE [Glucotrol] 5 mg PO BID 06/29/20 [History] metFORMIN HCL 1,000 mg PO BID-W/MEALS 06/29/20 [History] traZODone HCL 150 mg PO HS 06/29/20 [History] lisinopriL [Zestril] 10 mg PO DAILY #30 tab 07/02/20 [Rx] Follow up Appointment(s)/Referral(s): Deonna Chatman MD [STAFF PHYSICIAN] - 2 Weeks Damion Dhaliwal [Primary Care Provider] - 2 Weeks (huber) Patient Instructions/Handouts: Hysterectomy (DC) Activity/Diet/Wound Care/Special Instructions: No intercourse, tampons or douching. No driving or heavy lifting for 2 weeks. Discharge Disposition: HOME SELF-CARE
[2020-07-02 10:18] VITALS: BP 104/52; TEMP 98.6
[2020-07-02] MEDS: lisinopriL 10 MG TAB PO SCH (10:18)
[2020-07-02 11:12] VITALS: PULSE 88
--- NOTE | 2020-07-05 08:29 | CDI ---
Documentation Clarification Form Date: 07/05/20 From: Chasidy Leong CCS Phone: If you have a question about this query, please contact Rin Encarnacion, Secret Service Agent at [phone] between 8am and 5pm. Admit Date: 06/30/20 Discharge Date:07/02/20 Patient Name: Becky Trinh Visit Number: [id number] ATTENTION: The Clinical Documentation Specialists (CDI) and [facility] Coding Staff appreciate your assistance in clarifying documentation. Please respond to the clarification below the line at the bottom and electronically sign. The CDI & [facility] Coding staff will review the response and follow-up if needed. Please note: Queries are made part of the Legal Health Record. If you have any questions, please contact the author of this message via ITS. Dear Dr. Chatman, Anemia is documented in the Consult. History/Risk Factors: S/P MASOOD, COPD, DM, HTN, Obesity w/BMI 45.8 Clinical indicators: 500 ml blood loss, Abnormal labs, RBC transfusion Hemoglobin: 9.4, 9.2, 8.5 Hematocrit: 30.6, 31.8, 28.4 Treatment: RBC 1 unit In order to capture the severity of condition, please clarify the type of anemia and etiology if known:. Acute blood loss anemia Acute on chronic blood loss anemia Chronic blood loss anemia Iron deficiency anemia Hemolytic anemia Drug induced anemia Nutritional anemia Unable to determine Other, please specify Acute on chronic blood loss anemia. Thank you LACEY
== END 2020-07-02 11:20 | disposition home or self-care (01) | DRG 742 ==
LOC: EC 07:40 → 6PED 12:24 → OBSVTOIN 06-30 12:34 → 4FBP 07-01 19:56
PROVIDERS: ADMIT Family Medicine; ATTEND Family Medicine
PROC: 30233N1 Transfusion of Nonautologous Red Blood Cells into Peripheral Vein, Percutaneous Approach (ICD-10-PCS; 2020-06-30)
PROC: 0UT90ZZ Resection of Uterus, Open Approach (ICD-10-PCS; principal; 2020-06-30 07:00)
DX: D25.9 Leiomyoma of uterus, unspecified (principal); Z68.42 Body mass index [BMI] 45.0-49.9, adult; D62 Acute posthemorrhagic anemia; J44.9 Chronic obstructive pulmonary disease, unspecified; E11.65 Type 2 diabetes mellitus with hyperglycemia; G40.909 Epilepsy, unspecified, not intractable, without status epilepticus; K21.9 Gastro-esophageal reflux disease without esophagitis; I10 Essential (primary) hypertension; R01.1 Cardiac murmur, unspecified; G89.29 Other chronic pain; M54.5 Low back pain; G43.909 Migraine, unspecified, not intractable, without status migrainosus; F41.9 Anxiety disorder, unspecified; F32.9 Major depressive disorder, single episode, unspecified; F17.200 Nicotine dependence, unspecified, uncomplicated; E66.9 Obesity, unspecified; E87.5 Hyperkalemia; N92.0 Excessive and frequent menstruation with regular cycle; Z71.6 Tobacco abuse counseling; Z79.899 Other long term (current) drug therapy; Z79.84 Long term (current) use of oral hypoglycemic drugs; Z87.01 Personal history of pneumonia (recurrent); Z87.440 Personal history of urinary (tract) infections; Z86.14 Personal history of Methicillin resistant Staphylococcus aureus infection; Z90.49 Acquired absence of other specified parts of digestive tract; Z98.890 Other specified postprocedural states; Z88.7 Allergy status to serum and vaccine; Z91.012 Allergy to eggs; Z91.010 Allergy to peanuts; Z80.0 Family history of malignant neoplasm of digestive organs; Z82.5 Family history of asthma and other chronic lower respiratory diseases
CPT/HCPCS: 36415; 36430; 74177; 76830; 76856; 80048; 80053; 80177; 81003; 81025; 82150; 82272; 83690; 84132; 85025; 86850; 86900; 86901; 86920; 88307; 93005; 94640; 96361; 96374; 96375; 96376; 99285

== ENCOUNTER 2020-10-16 11:31 | Emergency (ER) | payer OTHER ==
[2020-10-16 11:36] VITALS: TEMP 98.5
[2020-10-16] MEDS ORDERED: SODIUM CHLORIDE 0.9% 1,000 ML IV STA (11:52)
[2020-10-16] MEDS ORDERED: levETIRAcetam IV 500 MG in SODIUM CHLORIDE 0.9% 100 ML IVPB STA (11:53)
[2020-10-16] MEDS ORDERED: ONDANSETRON 4 MG/2 ML VIAL IVP STA (11:53)
[2020-10-16] MEDS ORDERED: MORPHINE SULFATE 4 MG/ML SYRINGE IVP STA (11:53)
[2020-10-16 12:18] LABS: Anisocytosis Slight; Basophils # (A) 0.1 k/uL (0-0.2); Basophils % (A) 1 %; Eosinophils # (A) 0.3 k/uL (0-0.7); Eosinophils % (A) 5 %; HCT 38.3 % (34.0-46.0); HGB 12.2 gm/dL (11.4-16.0); Hypochromasia Slight; Lymphocytes % (A) 13 %; MCH 22.2 pg (25.0-35.0); MCHC 31.9 g/dL (31.0-37.0); MCV 69.5 fL (80.0-100.0); Mean Platelet Volume 6.1; Microcytosis Marked; Monocytes # (A) 0.6 k/uL (0-1.0); Monocytes % (A) 8 %; Neutrophils # (A) 5.3 k/uL (1.3-7.7); Neutrophils % (A) 71 %; Platelet Count 390 k/uL (150-450); RBC 5.52 m/uL (3.80-5.40); WBC 7.4 k/uL (3.8-10.6)
[2020-10-16 12:32] LABS: African American GFR (CKD) >90 (>60 ml/min/1.73 sqM); Albumin 3.9 g/dL (3.5-5.0); Alcohol <10 mg/dL; Anion Gap 3 mmol/L; Blood Urea Nitrogen 14 mg/dL (7-17); Calcium 9.1 mg/dL (8.4-10.2); Carbon Dioxide 26 mmol/L (22-30); Chloride 105 mmol/L (98-107); Glucose 204 mg/dL (74-99); Non-African American GFR(CKD) >90 (>60 ml/min/1.73 sqM); Sodium 134 mmol/L (137-145); Total Bilirubin 1.1 mg/dL (0.2-1.3); Total Protein 6.7 g/dL (6.3-8.2)
--- NOTE | 2020-10-16 12:34 | CT ---
EXAMINATION TYPE: CT brain wo con DATE OF EXAM: 10/16/2020 COMPARISON: 06/16/2020 HISTORY: 40-year-old female seizure activity TECHNIQUE: Examination was done in axial plane without intravenous contrast. Coronal and sagittal r econstructions performed. CT DLP: 1046.4 mGycm Automated exposure control for dose reduction was used. FINDINGS: There is no evidence of acute intracranial hemorrhage, acute ischemic changes, mass, mass-effect, or extra-axial fluid collection. There is no effacement of cerebral sulci or basal subarachnoid cister ns. There is no hydrocephalus. There is no midline shift. Willams-white matter distinction is preserv ed. Rightward nasal septal deviation. Mild mucosal thickening right maxillary sinus injuries within the e thmoid air cells. Minimal fluid within the right mastoid air cells. Orbits and globes are intact. IMPRESSION: No acute intracranial abnormality seen. Minimal fluid right mastoid air cells. Correlate for any mast oid pain to exclude mastoiditis.
[2020-10-16 12:40] LABS: AST 757 U/L (14-36); Potassium 4.8 mmol/L (3.5-5.1)
[2020-10-16 12:41] LABS: ALT 796 U/L (4-34); Alkaline Phosphatase 142 U/L (38-126)
--- NOTE | 2020-10-16 12:50 | ED ---
General Adult HPI - General Chief complaint: Seizure Stated complaint: seizure Time Seen by Provider: 10/16/20 11:37 Source: patient, RN notes reviewed Mode of arrival: wheelchair Limitations: no limitations - History of Present Illness Initial comments: 40-year-old female with a past medical history of seizure disorder, asthma, chest pain, NIDDM type II, GERD, hypertension presents to the emergency room for a chief complaint of seizure. Patient states that she wasn't feeling well today and having episode of vomiting. Patient reports that she had a seizure in her kitchen. She did hit her head she believes. She reports that her seizures are usually controlled and she hasn't had one for quite some time. However she has had problems with her insurance and hasn't been able to have her Keppra refilled for one month. States she is trying to get back into her neurologist as her primary care provider refused to refill this for her. Patient is complaining of a headache at this time as well.Patient has no other complaints at this time including shortness of breath, chest pain, abdominal pain, nausea or vomiting, or visual changes. - Related Data Home Medications Medication Instructions Recorded Confirmed Desvenlafaxine Succinate [Pristiq] 200 mg PO DAILY 10/30/19 10/16/20 Albuterol Sulfate [Albuterol 2 puff PO RT-Q4H PRN 06/29/20 10/16/20 Sulfate Hfa] Montelukast [Singulair] 10 mg PO DAILY 06/29/20 10/16/20 glipiZIDE [Glucotrol] 5 mg PO BID 06/29/20 10/16/20 metFORMIN HCL 1,000 mg PO BID-W/MEALS 06/29/20 10/16/20 traZODone HCL 150 mg PO HS 06/29/20 10/16/20 Metoprolol Tartrate [Lopressor] 25 mg PO BID 10/16/20 10/16/20 Naproxen [Naprosyn] 500 mg PO BID PRN 10/16/20 10/16/20 lisinopriL 40 mg PO DAILY 10/16/20 10/16/20 Previous Rx's Medication Instructions Recorded Ondansetron [Zofran ODT] 4 mg PO Q8HR PRN #15 tab 10/16/20 Allergies Allergy/AdvReac Type Severity Reaction Status Date / Time peanut Allergy Anaphylaxis Verified 10/16/20 14:06 egg yolk AdvReac Mild Itching- Verified 10/16/20 14:06 FROM RAW EGG YOLK influenza virus vaccine, AdvReac Unknown-ALLERGIC Verified 10/16/20 14:06 specific TO EGGS [Influenza Virus Vacc,Specific] Review of Systems ROS Statement: Those systems with pertinent positive or pertinent negative responses have been documented in the HPI. ROS Other: All systems not noted in ROS Statement are negative. Past Medical History Past Medical History: Asthma, Chest Pain / Angina, Diabetes Mellitus, GERD/Reflux, Hypertension, Musculoskeletal Disorder, Pneumonia, Seizure Disorder Additional Past Medical History / Comment(s): Hx Bronchitis, Seasonal Allergies., NIDDM type II, seizure as a child with fever and last seizure over 3 yrs ago., migraines, chronic low back pain , heart murmur, Hx UTI's. History of Any Multi-Drug Resistant Organisms: MRSA Date of last positivie culture/infection: 05/11/18 MDRO Source:: BACK Past Surgical History: Cholecystectomy, Hernia Repair Additional Past Surgical History / Comment(s): 3 ABDOMINAL HERNIAS REPAIRED, colonoscopy, pain injections. Past Anesthesia/Blood Transfusion Reactions: Motion Sickness Past Psychological History: Anxiety, Depression Smoking Status: Current every day smoker Past Alcohol Use History: None Reported Past Drug Use History: None Reported - Past Family History Father Family Medical History: Cancer Additional Family Medical History / Comment(s): FATHER OF THROAT CA Mother Family Medical History: Asthma, COPD Additional Family Medical History / Comment(s): . General Exam Limitations: no limitations General appearance: alert, in no apparent distress Head exam: Present: atraumatic, normocephalic, normal inspection Eye exam: Present: normal appearance, PERRL, EOMI. Absent: scleral icterus, conjunctival injection, periorbital swelling ENT exam: Present: normal exam, mucous membranes moist Neck exam: Present: normal inspection, full ROM. Absent: tenderness, meningis mus, lymphadenopathy Respiratory exam: Present: normal lung sounds bilaterally. Absent: respiratory distress, wheezes, rales, rhonchi, stridor Cardiovascular Exam: Present: regular rate, normal rhythm, normal heart sounds. Absent: systolic murmur, diastolic murmur, rubs, gallop, clicks GI/Abdominal exam: Present: soft, normal bowel sounds. Absent: distended, tenderness, guarding, rebound, rigid Neurological exam: Present: alert Course Vital Signs 10/16/20 10/16/20 11:33 13:29 Temperature 98.5 F Pulse Rate 86 78 Respiratory 20 18 Rate Blood Pressure 112/74 129/71 O2 Sat by Pulse 97 98 Oximetry EKG Findings - EKG Comments: EKG Findings:: Normal sinus rhythm, ventricular rate 78, CO interval 148, QTC 456 Medical Decision Making - Medical Decision Making Vitals are stable. Patient is afebrile. Physical exam is unremarkable. No abdominal tenderness although patient does have a history of vomiting this morning. CBC unremarkable. CMP does show transaminitis. She has a history of cholecystectomy [address] brain shows no acute intracranial abnormality. There is minimal fluid right mastoid cell, correlate for any mastoid pain to exclude mastoiditis. Patient does not have any erythema or tenderness over the mastoid. Ultrasound report was reviewed. Bile duct mildly dilated however acceptable given postcholecystectomy status. Hepatomegaly with masslike area that is likely fatty sparing rather than mass however recommend follow-up. Name be treated upper limits however amylase and lipase are normal. At this time patient will be restarted on her Keppra and discharged home however I discussed that she needs to have her liver enzymes repeated within this next week. She will follow up with her doctor. She will return here for any worsening symptoms. - Lab Data Result diagrams: 10/16/20 11:57 10/16/20 11:57 Lab Results 10/16/20 10/16/20 10/16/20 Range/Units 11:57 11:57 11:57 WBC 7.4 (3.8-10.6) k/uL RBC 5.52 H (3.80-5.40) m/uL Hgb 12.2 (11.4-16.0) gm/dL Hct 38.3 (34.0-46.0) % MCV 69.5 L (80.0-100.0) fL MCH 22.2 L (25.0-35.0) pg MCHC 31.9 (31.0-37.0) g/dL RDW 17.0 H (11.5-15.5) % Plt Count 390 (150-450) k/uL MPV 6.1 Neutrophils % 71 % Lymphocytes % 13 % Monocytes % 8 % Eosinophils % 5 % Basophils % 1 % Neutrophils # 5.3 (1.3-7.7) k/uL Lymphocytes # 1.0 (1.0-4.8) k/uL Monocytes # 0.6 (0-1.0) k/uL Eosinophils # 0.3 (0-0.7) k/uL Basophils # 0.1 (0-0.2) k/uL Hypochromasia Slight Anisocytosis Slight Microcytosis Marked Sodium 134 L (137-145) mmol/L Potassium 4.8 (3.5-5.1) mmol/L Chloride 105 (98-107) mmol/L Carbon Dioxide 26 (22-30) mmol/L Anion Gap 3 mmol/L BUN 14 (7-17) mg/dL Creatinine 0.37 L (0.52-1.04) mg/dL Est GFR (CKD-EPI)AfAm >90 (>60 ml/min/1.73 sqM) Est GFR (CKD-EPI)NonAf >90 (>60 ml/min/1.73 sqM) Glucose 204 H (74-99) mg/dL Calcium 9.1 (8.4-10.2) mg/dL Total Bilirubin 1.1 (0.2-1.3) mg/dL AST 757 H (14-36) U/L ALT 796 H (4-34) U/L Alkaline Phosphatase 142 H (38-126) U/L Total Protein 6.7 (6.3-8.2) g/dL Albumin 3.9 (3.5-5.0) g/dL Amylase 59 (30-110) U/L Lipase 85 (23-300) U/L Serum Alcohol <10 mg/dL Disposition Clinical Impression: History of seizure Disposition: HOME SELF-CARE Condition: Good Instructions (If sedation given, give patient instructions): Recurrent Seizures in Adults (ED) Additional Instructions: Please drink plenty of fluids. Take Keppra as directed. Follow-up with your primary care provider. You need to have liver enzymes repeated as well as review your ultrasound report. Return to the emergency room for any worsening symptoms. Prescriptions: Ondansetron [Zofran ODT] 4 mg PO Q8HR PRN #15 tab PRN Reason: Nausea Is patient prescribed a controlled substance at d/c from ED?: No Referrals: Damion Dhaliwal [Primary Care Provider] - 1-2 days Time of Disposition: 14:17
[2020-10-16 13:02] LABS: Amylase 59 U/L (30-110); Lipase 85 U/L (23-300)
[2020-10-16 13:30] VITALS: PULSE 78; RESP 18
--- NOTE | 2020-10-16 14:09 | US ---
EXAMINATION TYPE: US abdomen limited DATE OF EXAM: 10/16/2020 COMPARISON: CT 06/29/2020 CLINICAL HISTORY: 40 year-old female right upper quadrant pain, Abnormal LFT's, pt in ER for seizure TECHNIQUE: Multiple sonographic images of the right upper quadrant are obtained. FINDINGS: EXAM MEASUREMENTS: Liver Length: 21.8 cm CBD: 0.7 cm Right Kidney: 13.2 x 4.5 x 5.4 cm Pancreas: Pancreatic duct upper limits of normal at 3 mm. Most of the pancreas is visualized and show s no gross abnormality of the pancreatic tail is limited due to bowel gas. Liver: Enlarged and echogenic. There is a hypoechoic area centrally near the siddhartha hepatis measuring 4.5 x 4.1 x 5.6 cm . This seems to correspond to a masslike area unchanged from 06/29/2020 and probabl y from 06/03/2019 CT scan as well. Gallbladder: Surgically absent Evidence for sonographic Caldwell's sign: No CBD: Mildly dilated. Right Kidney: wnl IMPRESSION: 1. Bile duct is mildly dilated at 7 mm but acceptable given postcholecystectomy status. 2. Hepatomegaly (21.8 cm) with hepatic steatosis. There is a masslike 5.6 cm hypoechoic area at the p ade hepatis that may have been present back on the CT of 06/03/2019 as well. Suspect focal fatty spar ing rather than mass. Recommend 6 month follow-up ultrasound to reassess this area. 3. Main pancreatic duct at the upper limits of normal in caliber at 3 mm. Correlate with amylase and lipase levels.
[2020-10-16 14:50] VITALS: BP 121/77
== END 2020-10-16 14:51 | disposition home or self-care (01) ==
LOC: EC 11:31
DX: R56.9 Unspecified convulsions (principal); R51.9 Headache, unspecified; Z87.898 Personal history of other specified conditions; R16.0 Hepatomegaly, not elsewhere classified; J45.909 Unspecified asthma, uncomplicated; E11.9 Type 2 diabetes mellitus without complications; I10 Essential (primary) hypertension; F41.9 Anxiety disorder, unspecified; F32.9 Major depressive disorder, single episode, unspecified; F17.200 Nicotine dependence, unspecified, uncomplicated; Z79.84 Long term (current) use of oral hypoglycemic drugs; Z79.899 Other long term (current) drug therapy; Z91.010 Allergy to peanuts; Z88.7 Allergy status to serum and vaccine; Z91.012 Allergy to eggs
CPT/HCPCS: 36415; 93005; 80053; 82150; 83690; 85025; 76705; 70450; 99284; 96365; 96375 ×2; 96361; G0480; J2270; J2405; J1953; 80320

== ENCOUNTER → 2024-04-15 | Outpatient (CLI) | payer OTHER ==
--- NOTE | 2024-04-15 15:55 | US ---
EXAMINATION TYPE: US thyroid st tissue head/neck DATE OF EXAM: 04/15/2024 COMPARISON: NONE CLINICAL INDICATION: Female, 43 years old with history of R94.6 ABNORMAL RESULTS OF THYROID FUNCTION STUDIES; hyperthyroidism GLAND SIZE: Right Lobe: 5.8x2.6x2.2 cm Overall Parenchyma: homogeneous Left Lobe: 14.5x2.4x2.5 cm Overall Parenchyma: homogeneous Isthmus Thickness: 0.7 cm NODULES RIGHT: # of nodules measured on right: 2 1. 2.7 X 2.1 x 2.5 cm, upper mid, solid or almost completely solid, hypoechoic nodule, which is wid er than tall, with smooth margins, with echogenic foci. TR 4. 2. 2.6 X 2.1 x 2.7 cm, lower mid, solid or almost completely solid, hypoechoic nodule, which is wid er than tall, with smooth margins, without echogenic foci. TR 4. LEFT: # of nodules measured on left: 1 1. 2.8 X 2.3 x 2.1 cm, upper mid, solid or almost completely solid, hypoechoic nodule, which is wid er than tall, with smooth margins, without echogenic foci. TR 4. ISTHMUS: # of nodules measured in the isthmus: 1 1. 1.2 X 0.7 x 1.0 cm solid or almost completely solid, hypoechoic nodule, which is wider than tall , with smooth margins, without echogenic foci. TR 4. Bilateral neck scanned, no evidence of lymphadenopathy. IMPRESSION: Multinodular goiter as described above. ACR TI-RADS LEVEL: TR-RADS 4 - Moderately Suspicious: Follow if > 1 cm, FNA if > 1.5 cm *Highest TI-RADS level nodule reported
== END | disposition home or self-care (01) ==
LOC: RADUSWWP 10:07
PROVIDERS: ATTEND Family Medicine
DX: R94.6 Abnormal results of thyroid function studies (principal); R22.0 Localized swelling, mass and lump, head; E04.2 Nontoxic multinodular goiter
CPT/HCPCS: 76536

== ENCOUNTER → 2024-04-17 | Outpatient (CLI) | payer OTHER ==
--- NOTE | 2024-04-20 18:52 | MM ---
Reason for Exam: Screening (asymptomatic). Last mammogram was performed 7 year(s) and 10 month(s) ago. Patient History: Menarche at age 10. First Full-Term at age 19. Hysterectomy at age 41. Hormonal Contraceptives for 1 year from age 24 until age 25. Risk Values: Zoila 5 year model risk: 0.8%. NCI Lifetime model risk: 9.5%. Prior Study Comparison: 06/07/2016 Bilateral Diagnostic Mammogram, [facility]. Tissue Density: There are scattered areas of fibroglandular density. Findings: Analyzed By CAD. Asymmetric density medial aspect of the right breast anterior depth view for which further evaluation is recommended. Asymmetric density central lateral aspect of the left breast CC view middle depth. This may represent superimposition shadow but further evaluation is recommended. Chronic nodularity posterior outer left breast. Otherwise, no significant change. Overall Assessment: Incomplete: need additional imaging evaluation, BI-RAD 0 Management: Special View Mammogram of both breasts. to include spot 3-D CC, 3-D CC rolled, and 3-D lateral views. [facility] will attempt to contact patient to return for supplemental views and ultrasound if indicated. Electronically signed and approved by: Dolores Cottrell M.D. Radiologist
== END | disposition home or self-care (01) ==
LOC: RADMAMWWP 07:55
PROVIDERS: ATTEND Family Medicine
DX: Z12.31 Encounter for screening mammogram for malignant neoplasm of breast (principal)
CPT/HCPCS: 77063; 77067

== ENCOUNTER → 2024-04-24 | Outpatient (CLI) | payer OTHER ==
--- NOTE | 2024-04-24 11:00 | MM ---
Reason for Exam: Additional evaluation requested from abnormal screening. Last screening mammogram was performed less than 1 month ago. Patient History: Menarche at age 10. First Full-Term at age 19. Hysterectomy at age 41. Hormonal Contraceptives for 1 year from age 24 until age 25. Risk Values: Zoila 5 year model risk: 0.8%. NCI Lifetime model risk: 9.5%. Prior Study Comparison: 06/07/2016 Bilateral Diagnostic Mammogram, [facility]. 04/17/2024 Bilateral MG 3D screening mammo w/cad, [facility]. Tissue Density: There are scattered areas of fibroglandular density. Findings: Analyzed By CAD. Vague 1 cm asymmetric density inner aspect of the right breast anterior depth incompletely disperses on additional views. It appears to move laterally on the rolled view. Not clearly identified on the lateral view. Further ultrasound evaluation recommended. In the left breast, the lateral asymmetric density becomes much less defined with spot 3-D CC and shows an appearance unchanged from 2016. Overall Assessment: Incomplete: need additional imaging evaluation, BI-RAD 0 Management: Diagnostic Breast Ultrasound of the right breast. Electronically signed and approved by: Dolores Cottrell M.D. Radiologist
--- NOTE | 2024-04-24 11:22 | USB ---
Patient History: Menarche at age 10. First Full-Term at age 19. Hysterectomy at age 41. Hormonal Contraceptives for 1 year from age 24 until age 25. Risk Values: Zoila 5 year model risk: 0.8%. NCI Lifetime model risk: 9.5%. Technique: Method: Targeted. Doppler: Color. Patient Position: Supine. Prior Study Comparison: 06/07/2016 Bilateral Diagnostic Mammogram, [facility]. 04/17/2024 Bilateral MG 3D screening mammo w/cad, [facility]. Findings: The upper inner quadrant of the right breast, the axilla of the right breast and the retroareolar of the right breast were scanned. Targeted ultrasound upper inner quadrant right breast 12:00 to 3:00 including scanning of the subareolar region and axilla. Some mild duct ectasia is noted. Otherwise, no solid or cystic lesion or axillary lymphadenopathy. Overall Assessment: Probably benign, BI-RAD 3 Management: Diagnostic Mammogram of the right breast in 6 months. A clinical breast exam by your physician is recommended on an annual basis and results should be correlated with mammographic findings. This exam should not preclude additional follow-up of suspicious palpable abnormalities. Results were given to the patient verbally at the time of exam. Electronically signed and approved by: Dolores Cottrell M.D. Radiologist
== END | disposition home or self-care (01) ==
LOC: RADMAMWWP 10:16
PROVIDERS: ATTEND Family Medicine
DX: R92.323 Mammographic fibroglandular density, bilateral breasts (principal); R92.8 Other abnormal and inconclusive findings on diagnostic imaging of breast; N60.41 Mammary duct ectasia of right breast
CPT/HCPCS: 77066; 76642; G0279; 77062

== ENCOUNTER → 2024-11-17 | Outpatient (CLI) | payer OTHER ==
--- NOTE | 2024-11-17 12:28 | MM ---
Reason for Exam: Follow-up at short interval from prior study. Last screening mammogram was performed 6 month(s) ago. Patient History: Menarche at age 10. First Full-Term at age 19. Hysterectomy at age 41. Hormonal Contraceptives for 1 year from age 24 until age 25. Risk Values: Zoila 5 year model risk: 0.8%. NCI Lifetime model risk: 9.4%. Prior Study Comparison: 06/07/2016 Bilateral Diagnostic Mammogram, [facility]. 04/17/2024 Bilateral MG 3D screening mammo w/cad, [facility]. 04/24/2024 Bilateral MG 3D work up w/cad [facility], [facility]. Tissue Density: Right: There are scattered areas of fibroglandular density. Findings: Analyzed By CAD. Stable right breast anterior depth slightly medial asymmetry. Not definitively seen on MLO view Ultrasound finding from 04/24/2024. No new suspicious masses, calcifications or distortions. Overall Assessment: Benign, BI-RAD 2 Management: Screening Mammogram of both breasts in 1 year. Results were given to the patient verbally at the time of exam. Patient should continue monthly self-breast exams. A clinical breast exam by your physician is recommended on an annual basis. This exam should not preclude additional follow-up of suspicious palpable abnormalities. Note on Zoila scores and lifetime risk: 1. A Zoila score greater than 3% is considered moderate risk. If this is the case, consider specialist referral to assess eligibility for a risk reducing agent. 2. If overall lifetime risk for the development of breast cancer is 20% or higher, the patient may qualify for future screening with alternating mammogram and breast MRI. [facility], , 11/17/2024 12:25 PM. Electronically signed and approved by: Kevin Ibarra DO
== END | disposition home or self-care (01) ==
LOC: RADMAMWWP 11:49
PROVIDERS: ATTEND Family Medicine
DX: R92.8 Other abnormal and inconclusive findings on diagnostic imaging of breast (principal); R92.321 Mammographic fibroglandular density, right breast; R92.2 Inconclusive mammogram
CPT/HCPCS: 77065; G0279; 77061